=== PATIENT | female | born 1975 | race Caucasian/White ===

== ENCOUNTER → 2017-06-11 | Outpatient (CLI) | payer BC ==
--- NOTE | 2017-06-11 13:49 | MM ---
Reason for exam: screening (asymptomatic). Baseline mammogram. History: Patient had first child at age 34. Physical Findings: Nurse did not find any significant physical abnormalities on exam. MG Screening Mammo w CAD Bilateral CC and MLO view(s) were taken. The breast tissue is heterogeneously dense. This may lower the sensitivity of mammography. No suspicious abnormality. These results were verbally communicated with the patient and result sheet given to the patient on 06/11/17. ASSESSMENT: Negative, BI-RAD 1 RECOMMENDATION: Routine screening mammogram of both breasts in 1 year.
== END | disposition home or self-care (01) ==
LOC: RADMAMWWP 12:52
PROVIDERS: ATTEND Family Medicine
DX: Z12.31 Encounter for screening mammogram for malignant neoplasm of breast (principal)

== ENCOUNTER 2019-10-24 04:43 | Emergency (ER) | payer BC ==
[2019-10-24 04:52] VITALS: RESP 18; TEMP 98.2
--- NOTE | 2019-10-24 08:10 | ED ---
General Adult HPI - General Source: patient, EMS Mode of arrival: EMS Limitations: altered mental status <Cheyenne Walsh - Last Filed: 10/24/19 08:11> <Charli Rowe - Last Filed: 10/24/19 11:53> - General Chief complaint: Psychiatric Symptoms Stated complaint: Mental health Time Seen by Provider: 10/24/19 04:45 - History of Present Illness Initial comments: Patience is a 44 -year-old female is brought to the ER today intoxicated. Patient reports that she became agitated yesterday because she couldn't get a hold of her and she got upset and so she drank a fifth of liquor. This morning she was very intoxicated. EMS was contacted and she was brought to the ER. Patient made some passive statement about wanting to but denies any specific plan. (Cheyenne Walsh) - Related Data Home Medications Medication Instructions Recorded Confirmed Desvenlafaxine Succinate [Pristiq 50 mg PO DAILY 11/24/15 05/12/16 ER] Lisinopril 10 mg PO DAILY 11/24/15 05/12/16 Allergies Allergy/AdvReac Type Severity Reaction Status Date / Time No Known Allergies Allergy Verified 05/12/16 14:57 Review of Systems ROS Other: All systems not noted in ROS Statement are negative. <Cheyenne Walsh - Last Filed: 10/24/19 08:11> ROS Other: All systems not noted in ROS Statement are negative. <Charli Rowe - Last Filed: 10/24/19 11:53> ROS Statement: Those systems with pertinent positive or pertinent negative responses have been documented in the HPI. Past Medical History Past Medical History: Hypertension Additional Past Medical History / Comment(s): Depression History of Any Multi-Drug Resistant Organisms: None Reported Past Surgical History: No Surgical Hx Reported Past Psychological History: Anxiety, Depression Smoking Status: Current every day smoker Past Alcohol Use History: Occasional Past Drug Use History: None Reported <Cheyenne Walsh - Last Filed: 10/24/19 08:11> General Exam Limitations: altered mental status <Cheyenne Walsh - Last Filed: 10/24/19 08:11> - General Exam Comments Initial Comments: Physical Exam GENERAL: Patient is well-developed and well-nourished. Patient is nontoxic and well-hydrated and is in no distress. HENT: Normocephalic, Atraumatic. EYES: PERRL, EOMI PULMONARY: Unlabored respirations. CARDIOVASCULAR: RRR Warm and well perfused extremities ABDOMEN: Non-distended SKIN: No rashes or bruising : Deferred NEUROLOGIC: Alert and oriented Normal speech Normal gait MUSCULOSKELETAL: Moving all extremities with no apparent injury PSYCHIATRIC: No SI/HI (Cheyenne Walsh) Course Vital Signs 10/24/19 10/24/19 04:49 11:22 Temperature 98.2 F 98.2 F Pulse Rate 84 80 Respiratory 18 18 Rate Blood Pressure 126/84 121/82 O2 Sat by Pulse 98 98 Oximetry Medical Decision Making <Cheyenne Walsh - Last Filed: 10/24/19 08:11> <Charli Rowe - Last Filed: 10/24/19 11:53> - Medical Decision Making Patient was seen and evaluated, patient had become upset that she cannot locate her last night and thus she drank a fifth of alcohol became intoxicated and then upon arrival to the emergency department patient was happy to find her had actually been here held overnight for alcohol intoxication. At this time patient does not feel depressed deny any suicidal ideation however she is quite intoxicated and will remain here until clinically sober. She care will be signed out to Dr. Rowe at shift change (Cheyenne Walsh) Patient evaluated after sign out, she is awake and alert, clinically sober, no suicidal ideation. She is eager to get home and will be discharged, she does have a ride and is not driving. (Charli Rowe) Disposition <Cheyenne Walsh - Last Filed: 10/24/19 08:11> Is patient prescribed a controlled substance at d/c from ED?: No Time of Disposition: 11:15 <Charli Rowe - Last Filed: 10/24/19 11:53> Clinical Impression: Alcohol intoxication Disposition: HOME SELF-CARE Condition: Good Instructions (If sedation given, give patient instructions): Alcohol Intoxication (ED) Referrals: Gavin Mcdonald MD [Primary Care Provider] - 1-2 days
[2019-10-24 11:23] VITALS: BP 121/82; PULSE 80
== END 2019-10-24 11:23 | disposition home or self-care (01) ==
LOC: EC 04:43
DX: F10.129 Alcohol abuse with intoxication, unspecified (principal); R41.82 Altered mental status, unspecified; I10 Essential (primary) hypertension; F32.9 Major depressive disorder, single episode, unspecified; F41.9 Anxiety disorder, unspecified; F17.200 Nicotine dependence, unspecified, uncomplicated; Z79.899 Other long term (current) drug therapy
CPT/HCPCS: 82075; 99285

== ENCOUNTER 2019-11-03 19:59 | Emergency (ER) | payer BC ==
[2019-11-03] MEDS ORDERED: SODIUM CHLORIDE 0.9% 1,000 ML IV STA ×2 (20:14→21:00)
--- NOTE | 2019-11-03 20:15 | ED ---
SOB HPI - General Stated Complaint: SOB Time Seen by Provider: 11/03/19 20:06 Source: RN notes reviewed, old records reviewed Limitations: no limitations - History of Present Illness Initial Comments: This is a 44-year-old female with no code exposure to [place] patient presents today with concern for Kovic cough and she believes she has fever. Patient has no significant shortness of breath no shortness with no chest pain she is a smoker no history of asthma diabetes or any heart disease. Patient again aside from her cold exposure is no travel history. Patient has no significant other symptoms no nausea vomiting or diarrhea. Patient concern obviously that she has Kovic with a known exposure patient has both a family member in the hospital and one in the ICU with: Complaint: cough (And fever) -: days(s) Severity: mild Severity scale (1-10): 3 Quality: aching Consistency: intermittent Improves With: nothing Worsens With: nothing Known History Of: other (No significant medical history) Context: recent URI (An exposure to positive: Patient) Associated Symptoms: fever, cough Treatments Prior to Arrival: none - Related Data Home Medications Medication Instructions Recorded Confirmed Desvenlafaxine Succinate [Pristiq 50 mg PO DAILY 11/24/15 05/12/16 ER] Lisinopril 10 mg PO DAILY 11/24/15 05/12/16 Allergies Allergy/AdvReac Type Severity Reaction Status Date / Time No Known Allergies Allergy Verified 05/12/16 14:57 Review of Systems ROS Statement: Those systems with pertinent positive or pertinent negative responses have been documented in the HPI. ROS Other: All systems not noted in ROS Statement are negative. Past Medical History Past Medical History: Hypertension Additional Past Medical History / Comment(s): Depression History of Any Multi-Drug Resistant Organisms: None Reported Past Surgical History: No Surgical Hx Reported Past Psychological History: Anxiety, Depression Smoking Status: Current every day smoker Past Alcohol Use History: Occasional Past Drug Use History: None Reported General Exam General appearance: alert, in no apparent distress Head exam: Present: atraumatic, normocephalic, normal inspection Eye exam: Present: normal appearance, PERRL, EOMI. Absent: scleral icterus, conjunctival injection, periorbital swelling ENT exam: Present: normal exam, mucous membranes moist Neck exam: Present: normal inspection. Absent: tenderness, meningismus, lymphadenopathy Respiratory exam: Present: normal lung sounds bilaterally. Absent: respiratory distress, wheezes, rales, rhonchi, stridor Cardiovascular Exam: Present: regular rate, normal rhythm, normal heart sounds. Absent: systolic murmur, diastolic murmur, rubs, gallop, clicks GI/Abdominal exam: Present: soft, normal bowel sounds. Absent: distended, tenderness, guarding, rebound, rigid Extremities exam: Present: normal inspection, full ROM, normal capillary refill. Absent: tenderness, pedal edema, joint swelling, calf tenderness Back exam: Present: normal inspection Neurological exam: Present: alert, oriented X3, CN II-XII intact Psychiatric exam: Present: normal affect, normal mood Skin exam: Present: warm, dry, intact, normal color. Absent: rash Course Vital Signs 11/03/19 11/03/19 11/03/19 20:04 20:08 21:00 Temperature 98.8 F 99.4 F Pulse Rate 92 82 80 Respiratory 18 16 16 Rate Blood Pressure 166/100 145/91 133/81 O2 Sat by Pulse 96 96 97 Oximetry 11/03/19 22:16 Temperature 99.0 F Pulse Rate 89 Respiratory 16 Rate Blood Pressure 141/90 O2 Sat by Pulse 99 Oximetry - Reevaluation(s) Reevaluation #1: Medical records reviewed Patient informed of findings here in the ER given adequate hydration denying shortness of breath patient is feeling improved Patient again admits to positive CO VID exposure Patient given return parameters, with no significant shortness breath normal x- ray and normal lab values currently patient can be discharged home Medical Decision Making - Medical Decision Making 44 female DF for evaluation for concern of covert, she does have positive exposure with fever and cough chest x-ray lab work and vital signs are normal here in the ER patient's in no distress informed of results we'll choose discharged home, quarantine and follow-up as needed - Lab Data Result diagrams: 11/03/19 20:10 11/03/19 20:10 Lab Results 11/03/19 11/03/19 11/03/19 Range/Units 20:10 20:10 20:10 WBC 9.6 (3.8-10.6) k/uL RBC 4.93 (3.80-5.40) m/uL Hgb 16.1 H (11.4-16.0) gm/dL Hct 48.6 H (34.0-46.0) % MCV 98.5 (80.0-100.0) fL MCH 32.5 (25.0-35.0) pg MCHC 33.0 (31.0-37.0) g/dL RDW 13.7 (11.5-15.5) % Plt Count 305 (150-450) k/uL Neutrophils % 57 % Lymphocytes % 32 % Monocytes % 5 % Eosinophils % 2 % Basophils % 1 % Neutrophils # 5.5 (1.3-7.7) k/uL Lymphocytes # 3.0 (1.0-4.8) k/uL Monocytes # 0.5 (0-1.0) k/uL Eosinophils # 0.2 (0-0.7) k/uL Basophils # 0.1 (0-0.2) k/uL PT 9.4 (9.0-12.0) sec INR 0.9 (<1.2) APTT 22.4 (22.0-30.0) sec Sodium 142 (137-145) mmol/L Potassium 3.7 (3.5-5.1) mmol/L Chloride 109 H (98-107) mmol/L Carbon Dioxide 23 (22-30) mmol/L Anion Gap 10 mmol/L BUN 11 (7-17) mg/dL Creatinine 0.56 (0.52-1.04) mg/dL Est GFR (CKD-EPI)AfAm >90 (>60 ml/min/1.73 sqM) Est GFR (CKD-EPI)NonAf >90 (>60 ml/min/1.73 sqM) Glucose 110 H (74-99) mg/dL Lactic Ac Sepsis Rflx Plasma Lactic Acid Quan (0.7-2.0) mmol/L Calcium 8.9 (8.4-10.2) mg/dL Magnesium 2.0 (1.6-2.3) mg/dL Total Bilirubin 0.2 (0.2-1.3) mg/dL AST 29 (14-36) U/L ALT 18 (4-34) U/L Alkaline Phosphatase 92 (38-126) U/L Creatine Kinase 116 (30-135) U/L CK-MB (CK-2) (0.0-2.4) ng/mL Troponin I (0.000-0.034) ng/mL NT-Pro-B Natriuret Pep pg/mL Total Protein 7.2 (6.3-8.2) g/dL Albumin 4.4 (3.5-5.0) g/dL Urine Color Urine Appearance (Clear) Urine pH (5.0-8.0) Ur Specific [place] (1.001-1.035) Urine Protein (Negative) Urine Glucose (UA) (Negative) Urine Ketones (Negative) Urine Blood (Negative) Urine Nitrite (Negative) Urine Bilirubin (Negative) Urine Urobilinogen (<2.0) mg/dL Ur Leukocyte Esterase (Negative) Urine RBC (0-5) /hpf Urine WBC (0-5) /hpf Ur Squamous Epith Cells (0-4) /hpf Hyaline Casts (0-2) /lpf Urine Mucus (None) /hpf 11/03/19 11/03/19 11/03/19 Range/Units 20:10 20:10 20:10 WBC (3.8-10.6) k/uL RBC (3.80-5.40) m/uL Hgb (11.4-16.0) gm/dL Hct (34.0-46.0) % MCV (80.0-100.0) fL MCH (25.0-35.0) pg MCHC (31.0-37.0) g/dL RDW (11.5-15.5) % Plt Count (150-450) k/uL Neutrophils % % Lymphocytes % % Monocytes % % Eosinophils % % Basophils % % Neutrophils # (1.3-7.7) k/uL Lymphocytes # (1.0-4.8) k/uL Monocytes # (0-1.0) k/uL Eosinophils # (0-0.7) k/uL Basophils # (0-0.2) k/uL PT (9.0-12.0) sec INR (<1.2) APTT (22.0-30.0) sec Sodium (137-145) mmol/L Potassium (3.5-5.1) mmol/L Chloride (98-107) mmol/L Carbon Dioxide (22-30) mmol/L Anion Gap mmol/L BUN (7-17) mg/dL Creatinine (0.52-1.04) mg/dL Est GFR (CKD-EPI)AfAm (>60 ml/min/1.73 sqM) Est GFR (CKD-EPI)NonAf (>60 ml/min/1.73 sqM) Glucose (74-99) mg/dL Lactic Ac Sepsis Rflx Plasma Lactic Acid Quan 3.4 H* (0.7-2.0) mmol/L Calcium (8.4-10.2) mg/dL Magnesium (1.6-2.3) mg/dL Total Bilirubin (0.2-1.3) mg/dL AST (14-36) U/L ALT (4-34) U/L Alkaline Phosphatase (38-126) U/L Creatine Kinase (30-135) U/L CK-MB (CK-2) 0.5 (0.0-2.4) ng/mL Troponin I <0.012 (0.000-0.034) ng/mL NT-Pro-B Natriuret Pep 49 pg/mL Total Protein (6.3-8.2) g/dL Albumin (3.5-5.0) g/dL Urine Color Urine Appearance (Clear) Urine pH (5.0-8.0) Ur Specific [place] (1.001-1.035) Urine Protein (Negative) Urine Glucose (UA) (Negative) Urine Ketones (Negative) Urine Blood (Negative) Urine Nitrite (Negative) Urine Bilirubin (Negative) Urine Urobilinogen (<2.0) mg/dL Ur Leukocyte Esterase (Negative) Urine RBC (0-5) /hpf Urine WBC (0-5) /hpf Ur Squamous Epith Cells (0-4) /hpf Hyaline Casts (0-2) /lpf Urine Mucus (None) /hpf 11/03/19 11/03/19 Range/Units 20:47 20:54 WBC (3.8-10.6) k/uL RBC (3.80-5.40) m/uL Hgb (11.4-16.0) gm/dL Hct (34.0-46.0) % MCV (80.0-100.0) fL MCH (25.0-35.0) pg MCHC (31.0-37.0) g/dL RDW (11.5-15.5) % Plt Count (150-450) k/uL Neutrophils % % Lymphocytes % % Monocytes % % Eosinophils % % Basophils % % Neutrophils # (1.3-7.7) k/uL Lymphocytes # (1.0-4.8) k/uL Monocytes # (0-1.0) k/uL Eosinophils # (0-0.7) k/uL Basophils # (0-0.2) k/uL PT (9.0-12.0) sec INR (<1.2) APTT (22.0-30.0) sec Sodium (137-145) mmol/L Potassium (3.5-5.1) mmol/L Chloride (98-107) mmol/L Carbon Dioxide (22-30) mmol/L Anion Gap mmol/L BUN (7-17) mg/dL Creatinine (0.52-1.04) mg/dL Est GFR (CKD-EPI)AfAm (>60 ml/min/1.73 sqM) Est GFR (CKD-EPI)NonAf (>60 ml/min/1.73 sqM) Glucose (74-99) mg/dL Lactic Ac Sepsis Rflx Y Plasma Lactic Acid Quan (0.7-2.0) mmol/L Calcium (8.4-10.2) mg/dL Magnesium (1.6-2.3) mg/dL Total Bilirubin (0.2-1.3) mg/dL AST (14-36) U/L ALT (4-34) U/L Alkaline Phosphatase (38-126) U/L Creatine Kinase (30-135) U/L CK-MB (CK-2) (0.0-2.4) ng/mL Troponin I (0.000-0.034) ng/mL NT-Pro-B Natriuret Pep pg/mL Total Protein (6.3-8.2) g/dL Albumin (3.5-5.0) g/dL Urine Color Yellow Urine Appearance Clear (Clear) Urine pH 6.5 (5.0-8.0) Ur Specific [place] 1.026 (1.001-1.035) Urine Protein Trace H (Negative) Urine Glucose (UA) Negative (Negative) Urine Ketones Trace H (Negative) Urine Blood Moderate H (Negative) Urine Nitrite Negative (Negative) Urine Bilirubin Negative (Negative) Urine Urobilinogen <2.0 (<2.0) mg/dL Ur Leukocyte Esterase Negative (Negative) Urine RBC 11 H (0-5) /hpf Urine WBC 2 (0-5) /hpf Ur Squamous Epith Cells 2 (0-4) /hpf Hyaline Casts 1 (0-2) /lpf Urine Mucus Many H (None) /hpf - EKG Data -: EKG Interpreted by Me (EKG shows sinus rhythm of 86, NC 46, QRS 78, QTC 447) - Radiology Data Radiology results: report reviewed (Chest x-rays negative for acute disease), image reviewed Disposition Clinical Impression: Upper respiratory infection, Bronchitis, Viral syndrome Narrative: possCOVID Disposition: HOME SELF-CARE Condition: Good Instructions (If sedation given, give patient instructions): Acute Bronchitis (ED), Viral Syndrome (ED) Is patient prescribed a controlled substance at d/c from ED?: No Referrals: Jeremy Mcdonlad MD [Primary Care Provider] - 1-2 days
[2019-11-03 20:24] LABS: Basophils # (A) 0.1 k/uL (0-0.2); Basophils % (A) 1 %; Eosinophils # (A) 0.2 k/uL (0-0.7); Eosinophils % (A) 2 %; HCT 48.6 % (34.0-46.0); HGB 16.1 gm/dL (11.4-16.0); Lymphocytes % (A) 32 %; MCH 32.5 pg (25.0-35.0); MCV 98.5 fL (80.0-100.0); Monocytes # (A) 0.5 k/uL (0-1.0); Monocytes % (A) 5 %; Neutrophils # (A) 5.5 k/uL (1.3-7.7); Neutrophils % (A) 57 %; Platelet Count 305 k/uL (150-450); RBC 4.93 m/uL (3.80-5.40); RDW 13.7 % (11.5-15.5); WBC 9.6 k/uL (3.8-10.6)
[2019-11-03 20:25] VITALS: RESP 16
[2019-11-03 20:36] LABS: ALT 18 U/L (4-34); AST 29 U/L (14-36); African American GFR (CKD) >90 (>60 ml/min/1.73 sqM); Albumin 4.4 g/dL (3.5-5.0); Alkaline Phosphatase 92 U/L (38-126); Anion Gap 10 mmol/L; Blood Urea Nitrogen 11 mg/dL (7-17); Calcium 8.9 mg/dL (8.4-10.2); Carbon Dioxide 23 mmol/L (22-30); Chloride 109 mmol/L (98-107); Creatine Kinase 116 U/L (30-135); Glucose 110 mg/dL (74-99); Non-African American GFR(CKD) >90 (>60 ml/min/1.73 sqM); Potassium 3.7 mmol/L (3.5-5.1); Sodium 142 mmol/L (137-145); Total Bilirubin 0.2 mg/dL (0.2-1.3); Total Protein 7.2 g/dL (6.3-8.2)
[2019-11-03 20:41] LABS: INR 0.9 (<1.2); Partial Thromboplastin Time 22.4 sec (22.0-30.0); Prothrombin Time 9.4 sec (9.0-12.0)
[2019-11-03 20:55] LABS: Creatine Kinase MB 0.5 ng/mL (0.0-2.4); Troponin I <0.012 ng/mL (0.000-0.034)
--- NOTE | 2019-11-03 20:55 | XR ---
EXAMINATION TYPE: XR chest 1V portable DATE OF EXAM: 11/03/2019 COMPARISON: 05/12/2016 HISTORY: Cough. TECHNIQUE: FINDINGS: Heart and mediastinum are normal. Lungs are clear of infiltrate. There is no pleural effusi on. Pulmonary vascularity is normal. Bony thorax is intact. IMPRESSION: No cardiopulmonary disease. No change. Normal heart.
[2019-11-03] MEDS ORDERED: ACETAMINOPHEN TAB 500 MG TAB PO STA (21:00)
[2019-11-03 21:10] LABS: Appearance,Urine Clear (Clear); Bilirubin,Urine Negative (Negative); Blood,Urine Moderate (Negative); Color,Urine Yellow; Glucose,Urine (UA) Negative (Negative); Hyaline Casts,Urine 1 /lpf (0-2); Ketones,Urine Trace (Negative); Leukocyte Esterase,Urine Negative (Negative); Mucus,Urine Many /hpf; Nitrite,Urine Negative (Negative); PH, Urine 6.5 (5.0-8.0); Protein,Urine Trace (Negative); RBC,Urine 11 /hpf (0-5); Specific Gravity,Urine 1.026 (1.001-1.035); Squamous Epithelial Cell,Urine 2 /hpf (0-4); Urobilinogen,Urine <2.0 mg/dL (<2.0); WBC,Urine 2 /hpf (0-5)
[2019-11-03 22:18] VITALS: BP 141/90; PULSE 89; TEMP 99
== END 2019-11-03 22:15 | disposition home or self-care (01) ==
LOC: EC 19:59
DX: J06.9 Acute upper respiratory infection, unspecified (principal); J40 Bronchitis, not specified as acute or chronic; B34.9 Viral infection, unspecified; I10 Essential (primary) hypertension; F32.9 Major depressive disorder, single episode, unspecified; F17.200 Nicotine dependence, unspecified, uncomplicated; Z79.899 Other long term (current) drug therapy
CPT/HCPCS: 36415; 71045; 80053; 81001; 82550; 82553; 83605; 83735; 83880; 84484; 85025; 85610; 85730; 87040; 93005; 96360; 99285

== ENCOUNTER 2019-12-27 16:09 | Emergency (ER) | payer BC ==
[2019-12-27] MEDS ORDERED: ALBUTEROL HFA INHALER INHALATION STA (16:52)
[2019-12-27 17:29] LABS: Basophils # (A) 0.1 k/uL (0-0.2); Basophils % (A) 1 %; Eosinophils # (A) 0.4 k/uL (0-0.7); Eosinophils % (A) 3 %; HCT 47.6 % (34.0-46.0); HGB 15.3 gm/dL (11.4-16.0); Lymphocytes # (A) 3.9 k/uL (1.0-4.8); Lymphocytes % (A) 35 %; MCH 31.2 pg (25.0-35.0); MCHC 32.1 g/dL (31.0-37.0); MCV 97.2 fL (80.0-100.0); Monocytes # (A) 0.6 k/uL (0-1.0); Monocytes % (A) 5 %; Neutrophils % (A) 54 %; Platelet Count 369 k/uL (150-450); RBC 4.89 m/uL (3.80-5.40); RDW 12.7 % (11.5-15.5); WBC 11.1 k/uL (3.8-10.6)
--- NOTE | 2019-12-27 17:33 | XR ---
EXAMINATION TYPE: XR chest 1V portable DATE OF EXAM: 12/27/2019 COMPARISON: 11/03/2019 HISTORY: Cough and congestion TECHNIQUE: FINDINGS: Heart and mediastinum are normal. Lungs are clear of infiltrate. There are no hilar masses. Bony thorax is intact. Pulmonary vascularity is normal. IMPRESSION: Normal chest. No change.
[2019-12-27 17:43] LABS: ALT 14 U/L (4-34); AST 22 U/L (14-36); African American GFR (CKD) 85 (>60 ml/min/1.73 sqM); Albumin 4.1 g/dL (3.5-5.0); Alkaline Phosphatase 70 U/L (38-126); Anion Gap 11 mmol/L; Blood Urea Nitrogen 15 mg/dL (7-17); Carbon Dioxide 18 mmol/L (22-30); Chloride 115 mmol/L (98-107); Glucose 101 mg/dL (74-99); LDH 497 U/L (313-618); Non-African American GFR(CKD) 74 (>60 ml/min/1.73 sqM); Potassium 4.5 mmol/L (3.5-5.1); Sodium 144 mmol/L (137-145); Total Bilirubin 0.2 mg/dL (0.2-1.3); Total Protein 6.7 g/dL (6.3-8.2)
[2019-12-27 17:45] LABS: INR 0.9 (<1.2); Partial Thromboplastin Time 22.7 sec (22.0-30.0); Prothrombin Time 9.5 sec (9.0-12.0)
[2019-12-27 17:54] LABS: C Reactive Protein <5.0 mg/L (<10.0)
[2019-12-27 17:56] LABS: D-Dimer 0.7 mg/L FEU (<0.60)
[2019-12-27] MEDS ORDERED: MORPHINE SULFATE 4 MG/ML SYRINGE IVP STA (18:29)
--- NOTE | 2019-12-27 18:41 | CT ---
EXAMINATION TYPE: CT chest angio for PE DATE OF EXAM: 12/27/2019 COMPARISON: None HISTORY: SOB, ELEVATED D-DIMER CT DLP: 479 mGycm Automated exposure control for dose reduction was used. CONTRAST: Performed with IV Contrast, patient injected with 80 mL of Isovue 370. There are 3-D post processed images. The lungs are clear of infiltrate. There is no evidence of a pulmonary mass. There is no pleural effu nas. There is no pericardial effusion. There is no mediastinal adenopathy. There are no hilar masses. Heart size is normal. There is normal contrast opacification of the pulmonary arteries. There are no filling defects. Thora cic spine is intact. There is no compression fracture. Bony thorax is intact. Upper abdominal soft tissues appear normal. IMPRESSION: Normal exam. No evidence of pulmonary embolism.
[2019-12-27 18:55] VITALS: TEMP 97.6
[2019-12-27 19:11] VITALS: RESP 16
--- NOTE | 2019-12-27 19:55 | ED ---
General Adult HPI - General Chief complaint: Shortness of Breath Stated complaint: MINESH Time Seen by Provider: 12/27/19 16:32 Source: EMS, RN notes reviewed, old records reviewed Mode of arrival: EMS Limitations: no limitations - History of Present Illness Initial comments: Patient is a 44-year-old female presented to return today with onset of nonproductive cough since yesterday new shortness of breath this morning. Patient has some discomfort in the chest radiating with deep breath on left side. She is no fevers. She had negative covid 2 weeks ago. That time she's treated for bronchitis with azithromycin and hydroxychloroquine and she was exp osed to a covid Patient. Patient reports that she was feeling better up until the past 2 days. She denies any previous cardiac history. - Related Data Home Medications Medication Instructions Recorded Confirmed Desvenlafaxine Succinate [Pristiq 50 mg PO DAILY 11/24/15 05/12/16 ER] Lisinopril 10 mg PO DAILY 11/24/15 05/12/16 Previous Rx's Medication Instructions Recorded Albuterol Inhaler [Ventolin Hfa 1 puff INHALATION RT-QID #1 inhaler 12/27/19 Inhaler] Allergies Allergy/AdvReac Type Severity Reaction Status Date / Time No Known Allergies Allergy Verified 05/12/16 14:57 Review of Systems ROS Statement: Those systems with pertinent positive or pertinent negative responses have been documented in the HPI. ROS Other: All systems not noted in ROS Statement are negative. Past Medical History Past Medical History: Hypertension Additional Past Medical History / Comment(s): Depression History of Any Multi-Drug Resistant Organisms: None Reported Past Surgical History: No Surgical Hx Reported Past Psychological History: Anxiety, Depression Smoking Status: Current every day smoker Past Alcohol Use History: Occasional Past Drug Use History: Marijuana General Exam - General Exam Comments Initial Comments: Alert and oriented 45-year-old female. No significant distress. Limitations: no limitations General appearance: alert, in no apparent distress Head exam: Present: atraumatic, normocephalic, normal inspection Eye exam: Present: normal appearance, PERRL, EOMI. Absent: scleral icterus, conjunctival injection, periorbital swelling ENT exam: Present: normal exam, mucous membranes moist Neck exam: Present: normal inspection. Absent: tenderness, meningismus, lympha denopathy Respiratory exam: Present: normal lung sounds bilaterally. Absent: respiratory distress, wheezes, rales, rhonchi, stridor Cardiovascular Exam: Present: regular rate, normal rhythm, normal heart sounds. Absent: systolic murmur, diastolic murmur, rubs, gallop, clicks GI/Abdominal exam: Present: soft, normal bowel sounds. Absent: distended, tenderness, guarding, rebound, rigid Extremities exam: Present: normal inspection, full ROM, normal capillary refill. Absent: tenderness, pedal edema, joint swelling, calf tenderness Back exam: Present: normal inspection Neurological exam: Present: alert, oriented X3, CN II-XII intact Psychiatric exam: Present: normal affect, normal mood Course Vital Signs 12/27/19 12/27/19 12/27/19 16:11 16:15 17:40 Temperature 98.4 F Pulse Rate 112 H 88 Respiratory 18 20 18 Rate Blood Pressure 122/74 122/81 O2 Sat by Pulse 96 98 Oximetry 12/27/19 12/27/19 12/27/19 18:13 18:54 19:10 Temperature 97.6 F Pulse Rate 95 81 83 Respiratory 18 18 16 Rate Blood Pressure 125/76 130/85 129/83 O2 Sat by Pulse 98 98 98 Oximetry 12/27/19 20:33 Temperature Pulse Rate 71 Respiratory 16 Rate Blood Pressure 133/95 O2 Sat by Pulse 100 Oximetry Medical Decision Making - Medical Decision Making 44-year-old female presents emergency department today with chief complaint of cough, shortness of breath for the past 2 days. Patient states that she has some chest pain with taking a deep breath and reflected cough. Patient's lungs are relatively clear. No significant cough emergency department. EKG was reviewed and troponin reviewed are negative. Patient was given IV fluids and albuterol inhaler. She is reevaluated and resting comfortably in bed. I discussed patient's seems to likely still be related to slight bronchitis or bronchospasm. Advise using inhaler and following up with PCP. Discussed return parameters. - Lab Data Result diagrams: 12/27/19 16:16 12/27/19 16:16 Lab Results 12/27/19 12/27/19 12/27/19 Range/Units 16:16 16:16 16:16 WBC 11.1 H (3.8-10.6) k/uL RBC 4.89 (3.80-5.40) m/uL Hgb 15.3 (11.4-16.0) gm/dL Hct 47.6 H (34.0-46.0) % MCV 97.2 (80.0-100.0) fL MCH 31.2 (25.0-35.0) pg MCHC 32.1 (31.0-37.0) g/dL RDW 12.7 (11.5-15.5) % Plt Count 369 (150-450) k/uL Neutrophils % 54 % Lymphocytes % 35 % Monocytes % 5 % Eosinophils % 3 % Basophils % 1 % Neutrophils # 6.0 (1.3-7.7) k/uL Lymphocytes # 3.9 (1.0-4.8) k/uL Monocytes # 0.6 (0-1.0) k/uL Eosinophils # 0.4 (0-0.7) k/uL Basophils # 0.1 (0-0.2) k/uL PT 9.5 (9.0-12.0) sec INR 0.9 (<1.2) APTT 22.7 (22.0-30.0) sec D-Dimer 0.70 H (<0.60) mg/L FEU Sodium 144 (137-145) mmol/L Potassium 4.5 (3.5-5.1) mmol/L Chloride 115 H (98-107) mmol/L Carbon Dioxide 18 L (22-30) mmol/L Anion Gap 11 mmol/L BUN 15 (7-17) mg/dL Creatinine 0.95 (0.52-1.04) mg/dL Est GFR (CKD-EPI)AfAm 85 (>60 ml/min/1.73 sqM) Est GFR (CKD-EPI)NonAf 74 (>60 ml/min/1.73 sqM) Glucose 101 H (74-99) mg/dL Lactic Ac Sepsis Rflx Plasma Lactic Acid Quan (0.7-2.0) mmol/L Calcium 9.0 (8.4-10.2) mg/dL Magnesium 2.0 (1.6-2.3) mg/dL Total Bilirubin 0.2 (0.2-1.3) mg/dL AST 22 (14-36) U/L ALT 14 (4-34) U/L Alkaline Phosphatase 70 (38-126) U/L Lactate Dehydrogenase 497 (313-618) U/L Troponin I (0.000-0.034) ng/mL C-Reactive Protein <5.0 (<10.0) mg/L Total Protein 6.7 (6.3-8.2) g/dL Albumin 4.1 (3.5-5.0) g/dL 12/27/19 12/27/19 12/27/19 Range/Units 16:16 16:16 18:00 WBC (3.8-10.6) k/uL RBC (3.80-5.40) m/uL Hgb (11.4-16.0) gm/dL Hct (34.0-46.0) % MCV (80.0-100.0) fL MCH (25.0-35.0) pg MCHC (31.0-37.0) g/dL RDW (11.5-15.5) % Plt Count (150-450) k/uL Neutrophils % % Lymphocytes % % Monocytes % % Eosinophils % % Basophils % % Neutrophils # (1.3-7.7) k/uL Lymphocytes # (1.0-4.8) k/uL Monocytes # (0-1.0) k/uL Eosinophils # (0-0.7) k/uL Basophils # (0-0.2) k/uL PT (9.0-12.0) sec INR (<1.2) APTT (22.0-30.0) sec D-Dimer (<0.60) mg/L FEU Sodium (137-145) mmol/L Potassium (3.5-5.1) mmol/L Chloride (98-107) mmol/L Carbon Dioxide (22-30) mmol/L Anion Gap mmol/L BUN (7-17) mg/dL Creatinine (0.52-1.04) mg/dL Est GFR (CKD-EPI)AfAm (>60 ml/min/1.73 sqM) Est GFR (CKD-EPI)NonAf (>60 ml/min/1.73 sqM) Glucose (74-99) mg/dL Lactic Ac Sepsis Rflx Y Plasma Lactic Acid Quan 2.7 H* (0.7-2.0) mmol/L Calcium (8.4-10.2) mg/dL Magnesium (1.6-2.3) mg/dL Total Bilirubin (0.2-1.3) mg/dL AST (14-36) U/L ALT (4-34) U/L Alkaline Phosphatase (38-126) U/L Lactate Dehydrogenase (313-618) U/L Troponin I <0.012 (0.000-0.034) ng/mL C-Reactive Protein (<10.0) mg/L Total Protein (6.3-8.2) g/dL Albumin (3.5-5.0) g/dL 12/27/19 20:25 EKG shows normal sinus rhythm normal ECG. Ventricular rate of 89 bpm. Verbal 134 mg. QRS ration 76 most seconds. QT QTc is 362/440 ms - Radiology Data Radiology results: report reviewed CTA is negative. No pulmonary embolism. Normal chest x-ray. No changes. Disposition Clinical Impression: Bronchospasm, Cough Disposition: HOME SELF-CARE Condition: Good Instructions (If sedation given, give patient instructions): Acute Bronchitis (ED) Additional Instructions: Please use medication as discussed. Please follow up with family doctor if symptoms have not improved over the next two days. Please return to the emergency room if your symptoms increase or worsen or for any other concerns. Prescriptions: Albuterol Inhaler [Ventolin Hfa Inhaler] 1 puff INHALATION RT-QID #1 inhaler Is patient prescribed a controlled substance at d/c from ED?: No Referrals: Gavin Mcdonald MD [Primary Care Provider] - 1-2 days Time of Disposition: 20:20
[2019-12-27 20:34] VITALS: BP 133/95; PULSE 71
[2019-12-28 12:36] LABS: Ferritin 141.3 ng/mL (10.0-291.0)
== END 2019-12-27 20:34 | disposition home or self-care (01) ==
LOC: SUPCPDRO 16:09 → EC 16:09
DX: J98.01 Acute bronchospasm (principal); Z20.828 Contact with and (suspected) exposure to other viral communicable diseases; I10 Essential (primary) hypertension; F32.9 Major depressive disorder, single episode, unspecified; F17.200 Nicotine dependence, unspecified, uncomplicated; Z79.899 Other long term (current) drug therapy
CPT/HCPCS: 36415; 94640; 93005; 85379; 80053; 82728; 83605; 83615; 83735; 84484; 85025; 85610; 85730; 86140; 84145; 87635; 71045; 71275; 99285; 96374; J2270; Q9967

== ENCOUNTER 2019-12-28 00:21 | Observation (INO) | payer BC ==
--- NOTE | 2019-12-28 00:59 | ED ---
Chest Pain HPI - General Chief Complaint: Chest Pain Stated Complaint: chest pain Time Seen by Provider: 12/28/19 00:22 Source: patient, EMS, RN notes reviewed, old records reviewed Mode of arrival: EMS Limitations: no limitations - History of Present Illness Initial Comments: This is a 44-year-old female DF for evaluation patient Dese for evaluation re gards to chest pain. Patient is multiple episodes of recurrent chest pain patient's no prior cardiac evaluation patient was here earlier in the day for chest pain states chest pain is being increasingly worsening tonight. Mild nausea no vomiting no recent travel history. Patient did have significant sick contacts with positive cold exposure MD Complaint: chest pain -: days(s) Onset: during rest Pain Location: substernal, left chest Pain Radiation: none Severity: mild, moderate Severity scale (1-10): 5 Quality: aching, heaviness Consistency: intermittent Improves With: nothing Worsens With: nothing Context: recent illness (Concern for Kovic exposure) Anginal Symptoms: dyspnea Other Symptoms: cough Treatments Prior to Arrival: none - Related Data Home Medications Medication Instructions Recorded Confirmed Desvenlafaxine Succinate [Pristiq 50 mg PO DAILY 11/24/15 05/12/16 ER] Lisinopril 10 mg PO DAILY 11/24/15 05/12/16 Previous Rx's Medication Instructions Recorded Albuterol Inhaler [Ventolin Hfa 1 puff INHALATION RT-QID #1 inhaler 12/27/19 Inhaler] Allergies Allergy/AdvReac Type Severity Reaction Status Date / Time No Known Allergies Allergy Verified 05/12/16 14:57 Review of Systems ROS Statement: Those systems with pertinent positive or pertinent negative responses have been documented in the HPI. ROS Other: All systems not noted in ROS Statement are negative. EKG Findings - EKG Comments: EKG Findings:: EKG shows sinus rhythm 88, CT 140, QRS 78, QTC 459 Past Medical History Past Medical History: Hypertension Additional Past Medical History / Comment(s): Depression History of Any Multi-Drug Resistant Organisms: MRSA Past Surgical History: No Surgical Hx Reported Past Psychological History: Anxiety, Depression Smoking Status: Current some day smoker Past Alcohol Use History: Occasional Past Drug Use History: Marijuana General Exam Limitations: no limitations General appearance: alert, in no apparent distress, anxious Head exam: Present: atraumatic, normocephalic, normal inspection Eye exam: Present: normal appearance, PERRL, EOMI. Absent: scleral icterus, conjunctival injection, periorbital swelling ENT exam: Present: normal exam, mucous membranes moist Neck exam: Present: normal inspection. Absent: tenderness, meningismus, lymphadenopathy Respiratory exam: Present: normal lung sounds bilaterally. Absent: respiratory distress, wheezes, rales, rhonchi, stridor Cardiovascular Exam: Present: regular rate, normal rhythm, normal heart sounds. Absent: systolic murmur, diastolic murmur, rubs, gallop, clicks GI/Abdominal exam: Present: soft, normal bowel sounds. Absent: distended, tenderness, guarding, rebound, rigid Extremities exam: Present: normal inspection, full ROM, normal capillary refill. Absent: tenderness, pedal edema, joint swelling, calf tenderness Back exam: Present: normal inspection Neurological exam: Present: alert, oriented X3, CN II-XII intact Psychiatric exam: Present: normal affect, normal mood Skin exam: Present: warm, dry, intact, normal color. Absent: rash Course Vital Signs 12/28/19 12/28/19 00:22 00:30 Temperature 98 F Pulse Rate 86 Pulse Rate [ 95 Transmission Rebuilder ] Respiratory 18 Rate Blood Pressure 122/82 O2 Sat by Pulse 94 L Oximetry - Reevaluation(s) Reevaluation #1: 12/28/19 02:59 Medical records reviewed Reevaluation #2: 12/28/19 02:59 Patient's sodium persistent chest pain here in the ER - Consultations Consultation #1: Spoke with Dr. Crawford is agreeable for admission Chest Pain MDM - MDM 44 female DF for evaluation presented for evaluation regards to chest pain episodes of recurrent chest pain. Patient will be admitted for chest pain observation Disposition Clinical Impression: Chest pain Disposition: ADMITTED IP TO THIS HOSP Condition: Undetermined Is patient prescribed a controlled substance at d/c from ED?: No
[2019-12-28 01:02] LABS: Basophils # (A) 0.1 k/uL (0-0.2); Basophils % (A) 1 %; Eosinophils # (A) 0.4 k/uL (0-0.7); Eosinophils % (A) 4 %; HCT 45.7 % (34.0-46.0); HGB 14.8 gm/dL (11.4-16.0); Lymphocytes # (A) 3.8 k/uL (1.0-4.8); Lymphocytes % (A) 39 %; MCH 31.4 pg (25.0-35.0); MCHC 32.5 g/dL (31.0-37.0); MCV 96.8 fL (80.0-100.0); Mean Platelet Volume 7.9; Monocytes # (A) 0.5 k/uL (0-1.0); Monocytes % (A) 5 %; Neutrophils # (A) 4.9 k/uL (1.3-7.7); Neutrophils % (A) 50 %; Platelet Count 296 k/uL (150-450); RBC 4.72 m/uL (3.80-5.40); RDW 12.8 % (11.5-15.5); WBC 9.8 k/uL (3.8-10.6)
[2019-12-28 01:14] LABS: ALT 15 U/L (4-34); AST 30 U/L (14-36); African American GFR (CKD) >90 (>60 ml/min/1.73 sqM); Albumin 4.2 g/dL (3.5-5.0); Alkaline Phosphatase 47 U/L (38-126); Anion Gap 10 mmol/L; Blood Urea Nitrogen 13 mg/dL (7-17); Calcium 8.9 mg/dL (8.4-10.2); Carbon Dioxide 22 mmol/L (22-30); Chloride 113 mmol/L (98-107); Glucose 99 mg/dL (74-99); Magnesium 2.1 mg/dL (1.6-2.3); Non-African American GFR(CKD) >90 (>60 ml/min/1.73 sqM); Sodium 145 mmol/L (137-145); Total Bilirubin 0.5 mg/dL (0.2-1.3); Total Protein 6.9 g/dL (6.3-8.2)
[2019-12-28 01:16] LABS: Potassium 4.6 mmol/L (3.5-5.1)
[2019-12-28 01:45] LABS: INR 0.9 (<1.2); Partial Thromboplastin Time 22.5 sec (22.0-30.0); Prothrombin Time 9.8 sec (9.0-12.0)
[2019-12-28] MEDS ORDERED: NITROGLYCERIN SL TABS 0.4 MG TAB SUBLINGUAL PRN (01:47)
[2019-12-28] MEDS ORDERED: ASPIRIN 81 MG PO STA (01:47)
[2019-12-28] MEDS: SODIUM CHLORIDE 0.9% 1,000 ML IV SCH ×2 (02:23→23:35)
[2019-12-28] MEDS: MORPHINE SULFATE 4 MG/ML SYRINGE IV PRN ×2 (02:24→08:39)
--- NOTE | 2019-12-28 04:38 | P.HPIM ---
History of Present Illness H&P Date: 12/28/19 Chief Complaint: Chest pain 44-year-old female with hypertension controlled with meds Patient comes in after recurrent attack of retrosternal chest pain she reports that this morning while cooking she experienced 10 out of 10 sharp burning retrosternal chest pain nonradiating associated with pleuritic chest pain component she grew concerned she denies any associated palpitations nausea or vomiting or dizziness. Denies any similar episodes in the past except for 4 weeks ago when she was diagnosed with bronchitis at that time she also experienced some chest pain. So this morning she decided to come to the hospital after she experienced this pain she did not try any medications at home in the ED d-dimer was very slightly elevated CT angios the chest showed no acute pathology in the chest. Patient was discharged home and was told to come back if she experiences pain again. After spending one hour home she experienced similar pain while resting doing nothing she felt like she could not breathe and decided to come back to the hospital. Patient does admit to some anxiety and depression denies any sick contact or recent traveling denies otherwise any nausea vomiting diarrhea abdominal pain. Patient admits to smoking however she's then transferred to [facility] back since her diagnosis with bronchitis Patient admits to positive family history of coronary artery disease at young age. Patient initial workup in the ED this time was unremarkable patient admitted for cardiology evaluation Review of Systems Pertinent positives as noted in HPI. All other systems were reviewed and are negative Past Medical History Past Medical History: Hypertension Additional Past Medical History / Comment(s): Depression History of Any Multi-Drug Resistant Organisms: MRSA Past Surgical History: No Surgical Hx Reported Past Psychological History: Anxiety, Depression Smoking Status: Current some day smoker Past Alcohol Use History: Occasional Past Drug Use History: Marijuana - Past Family History Family Additional Family Medical History / Comment(s): Premature CAD in her uncle maternal side Medications and Allergies Home Medications Medication Instructions Recorded Confirmed Type Desvenlafaxine Succinate [Pristiq 50 mg PO DAILY 11/24/15 05/12/16 History ER] Lisinopril 10 mg PO DAILY 11/24/15 05/12/16 History Albuterol Inhaler [Ventolin Hfa 1 puff INHALATION RT-QID #1 inhaler 12/27/19 Rx Inhaler] Allergies Allergy/AdvReac Type Severity Reaction Status Date / Time No Known Allergies Allergy Verified 05/12/16 14:57 Physical Exam Vitals: Vital Signs Temp Pulse Pulse Resp BP Pulse Ox 12/28/19 00:30 95 12/28/19 00:22 98 F 86 18 122/82 94 L Intake and Output 12/27/19 12/27/19 12/28/19 14:59 22:59 06:59 Other: Weight 74.843 kg Constitutional: No acute distress, conversant, pleasant Eyes: Anicteric sclerae, moist conjunctiva, no lid-lag Pupils equal round reactive to light ENMT: NC/AT Oropharynx clear, no erythema, or exudates Neck: Supple, FROM, no masses, or JVD No carotid bruits No thyromegaly Lungs: Clear to auscultation Clear to percussion Normal respiratory effort, no accessory muscle use Cardiovascular: Heart regular in rate and rhythm, No murmurs, gallops, or rubs No peripheral edema Abdominal: Soft Nontender, no guarding, rebound or rigidity Abdomen moving with respiration Normoactive bowel sounds No hepatomegaly, No splenomegaly No palpable mass No abdominal wall hernia noted Skin: Normal temperature, tone, texture, turgor No induration No subcutaneous nodules No rash, lesions No ulcers Extremities: No digital cyanosis No clubbing Pedal pulses intact and symmetrical Radial pulses intact and symmetrical No calf tenderness Psychiatric: Alert and oriented to person, place and time Appropriate affect fair judgement Neuro Muscles Strength 5/5 in all 4 extremities Sensation to light touch grossly present throughout Cranial nerves II-XII grossly intact No focal sensory deficits Lymphatics: no palpable cervical or supraclavicular , or inguinal lymph nodes Results CBC & Chem 7: 12/28/19 00:27 12/28/19 00:27 Labs: Abnormal Lab Results - Last 24 Hours (Table) 12/28/19 Range/Units 00:27 Chloride 113 H (98-107) mmol/L Assessment and Plan Assessment: 44-year-old female with hypertension controlled with meds and depression. Comes in due to recurrent retrosternal chest pain admitted to rule out acute coronary syndrome anticipated length of stay less than [address] angios chest was done this morning showed no acute pathology. Atypical chest pain rule out ACS Cardiac monitoring Trend troponins Cardiology consult Pain control Aspirin Nitro when necessary Hypertension controlled Resume lisinopril Depression Resume home meds CODE STATUS: Full code DVT prophylaxis: Heparin subcu 3 times a day Discussed with: Patient, ER, RN Anticipated length of stay less than [address]: Home A total of 70 minutes was spent on the care of this complex patient more than 50% of the time was spent in counseling and care coordination.
[2019-12-28] MEDS: DESVENLAFAXINE SUCCINATE 50 MG TAB.ER.24H PO SCH (08:39)
[2019-12-28] MEDS: LISINOPRIL 10 MG TAB PO SCH (08:39)
[2019-12-28] MEDS ORDERED: methylPREDNISolone SOD SUCCI 40 MG/ML 1 ML VIAL IV STA (11:54)
--- NOTE | 2019-12-28 12:25 | P.CRDCN ---
History of Present Illness Consult date: 12/28/19 Chief complaint: Chest pain History of present illness: This is a very pleasant 44-year-old female patient with a past medical history significant for hypertension presented to the emergency room complaining of chest discomfort. She was in her usual state of health until yesterday when she started experiencing discomfort in the mid of the chest, as a sharp kind of discomfort, without any radiation to the arms or neck or shoulders, without a ssociated symptoms of shortness of breath, sweating, dizziness, or syncope. Currently the patient's chest pain free. She underwent an extensive workup including an EKG showing sinus rhythm without any significant ST or T-wave abnormalities. The chest x-ray did not show any acute abnormalities. Computed tomography scan of the chest showed no PE. The cardiac enzymes came in to be unremarkable was 2 sets of troponin. The patient is chest pain-free at this point. She does have hypertension as risk factors but no diabetes or dyslipidemia. She does have history of smoking but she stated that she is smoking intermittently. She does not carry a pack of cigarettes on her. No premature history of coronary artery disease with any immediate family members. I am going to obtain a stress test to rule out any severe underlying coronary artery disease. We'll schedule the patient to undergo a stress echocardiogram. We'll continue following up with her. Past Medical History Past Medical History: Hypertension Additional Past Medical History / Comment(s): Depression History of Any Multi-Drug Resistant Organisms: MRSA Date of last positivie culture/infection: 08/04/2017 MDRO Source:: nose Past Surgical History: No Surgical Hx Reported Past Psychological History: Anxiety, Depression Smoking Status: Current some day smoker Past Alcohol Use History: Occasional Past Drug Use History: Marijuana - Past Family History Family Additional Family Medical History / Comment(s): Premature CAD in her uncle maternal side Medications and Allergies Home Medications Medication Instructions Recorded Confirmed Type Desvenlafaxine Succinate [Pristiq 50 mg PO DAILY 11/24/15 12/28/19 History ER] Lisinopril 20 mg PO DAILY 11/24/15 12/28/19 History Albuterol Inhaler [Ventolin Hfa 1 puff INHALATION RT-QID #1 inhaler 12/27/19 12/28/19 Rx Inhaler] Allergies Allergy/AdvReac Type Severity Reaction Status Date / Time No Known Allergies Allergy Verified 05/12/16 14:57 Physical Exam Vitals: Vital Signs Temp Pulse Pulse Resp BP Pulse Ox 12/28/19 08:41 79 12/28/19 08:37 97.9 F 76 16 151/88 99 12/28/19 06:34 74 124/81 99 12/28/19 04:30 117/73 94 L 12/28/19 03:50 120/74 95 12/28/19 03:40 120/74 95 12/28/19 03:30 120/74 95 12/28/19 03:20 120/74 96 12/28/19 03:10 120/74 96 12/28/19 02:50 112/72 96 12/28/19 02:10 112/72 96 12/28/19 02:00 106/63 95 12/28/19 00:30 95 12/28/19 00:22 98 F 86 18 122/82 94 L Intake and Output 12/27/19 12/28/19 12/28/19 22:59 06:59 14:59 Other: Weight 74.843 kg - Constitutional General appearance: no acute distress - Respiratory Respiratory: bilateral: CTA - Cardiovascular Rhythm: regular Heart sounds: normal: S1, S2 Results 12/28/19 00:27 12/28/19 00:27 Cardiac Enzymes 12/28/19 12/28/19 12/28/19 Range/Units 00:27 00:27 06:17 AST 30 (14-36) U/L Troponin I <0.012 <0.012 (0.000-0.034) ng/mL Coagulation 12/28/19 Range/Units 00:27 PT 9.8 (9.0-12.0) sec APTT 22.5 (22.0-30.0) sec CBC 12/28/19 Range/Units 00:27 WBC 9.8 (3.8-10.6) k/uL RBC 4.72 (3.80-5.40) m/uL Hgb 14.8 (11.4-16.0) gm/dL Hct 45.7 (34.0-46.0) % Plt Count 296 (150-450) k/uL Comprehensive Metabolic Panel 12/28/19 Range/Units 00:27 Sodium 145 (137-145) mmol/L Potassium 4.6 (3.5-5.1) mmol/L Chloride 113 H (98-107) mmol/L Carbon Dioxide 22 (22-30) mmol/L BUN 13 (7-17) mg/dL Creatinine 0.66 (0.52-1.04) mg/dL Glucose 99 (74-99) mg/dL Calcium 8.9 (8.4-10.2) mg/dL AST 30 (14-36) U/L ALT 15 (4-34) U/L Alkaline Phosphatase 47 (38-126) U/L Total Protein 6.9 (6.3-8.2) g/dL Albumin 4.2 (3.5-5.0) g/dL Current Medications Generic Name Dose Route Start Last Admin Trade Name Freq PRN Reason Stop Dose Admin Aspirin 325 mg 12/29/19 09:00 12/28/19 08:39 Aspirin PO 325 mg DAILY JOAN Administration Desvenlafaxine Succinate 50 mg 12/28/19 09:00 12/28/19 08:39 Pristiq Er PO 50 mg DAILY JOAN Administration Famotidine 20 mg 12/28/19 12:00 Pepcid PO DAILY JOAN Sodium Chloride 1,000 mls @ 100 mls/hr 12/28/19 02:00 12/28/19 02:23 Saline 0.9% IV 100 mls/hr .Q10H JOAN Administration Lisinopril 10 mg 12/28/19 09:00 12/28/19 08:39 Zestril PO 10 mg DAILY JOAN Administration Morphine Sulfate 4 mg 12/28/19 01:47 12/28/19 08:39 Morphine Sulfate (Inj) IV 4 mg Q4HR PRN Administration Chest Pain Nitroglycerin 0.4 mg 12/28/19 01:47 Nitrostat SUBLINGUAL Q5M PRN Chest Pain Intake and Output 12/27/19 12/28/19 12/28/19 22:59 06:59 14:59 Other: Weight 74.843 kg 12/28/19 00:27 12/28/19 00:27 Assessment and Plan Assessment: Assessment #1 atypical chest discomfort #2 hypertension #3 history of smoking Plan #1 continue the current medical regimen #2 the patient was ruled out for acute coronary event #3 I will obtain a stress test to rule out severe CAD #4 follow-up with the patient Thank you for allowing us participate in her care
[2019-12-28] MEDS: FAMOTIDINE 20 MG TAB PO SCH (13:00)
[2019-12-28] MEDS ORDERED: busPIRone HCl 10 MG TAB PO PRN (16:35)
--- NOTE | 2019-12-28 19:48 | P.PN ---
Progress Note - Text Progress Note Date: 12/28/19 (delayed charting seen at 1130) Hospitalist Interval Note Patient seen and examined at bedside. chest pain free. patient notes that pain occurs with deep inspiration. She has been moving her arms more and lifting over her head more as she has been painting her living room. She does note a non productive cough. She reports this chest pain is identical to when she had bronchitis in the past. Vital signs reviewed General: non toxic, no distress, appears at stated age Derm: warm, dry Head: atraumatic, normocephalic, symmetric Eyes: EOMI, no lid lag, anicteric sclera Mouth: no lip lesion, mucus membranes moist Cardiovascular: S1S2 reg, no murmur, positive posterior tibial pulse bilateral, no pain to palpation of the chest wal Lungs: CTA bilateral, no rhonchi, no rales , no accessory muscle use Abdominal: soft, nontender to palpation, no guarding, no appreciable organomegaly Ext: no gross muscle atrophy, no edema, no contractures Neuro: CN II-XI grossly intact, no focal neuro deficits Psych: Alert, oriented, appropriate affect Assessment/Plan: 1. chest pain. ACS VS costchondritis- start steroid and pepcid, await cardio consult This is an update note for patient , for full note on see . There is no charge associated with this note.
[2019-12-28] MEDS: ALBUTEROL HFA INHALER INHALATION SCH (21:38)
[2019-12-29] MEDS: SODIUM CHLORIDE 0.9% 1,000 ML IV SCH ×2 (02:21→10:01)
[2019-12-29 04:26] LABS: Cholesterol 175 mg/dL (<200); HDL Cholesterol 45 mg/dL (40-60); LDL Cholesterol,Calculated 82 mg/dL (0-99); Triglycerides 241 mg/dL (<150)
[2019-12-29] MEDS: ALBUTEROL HFA INHALER INHALATION SCH (07:52)
[2019-12-29 08:32] VITALS: RESP 17; TEMP 98.1
[2019-12-29] MEDS ORDERED: ASPIRIN 325 MG TAB PO SCH (09:00)
[2019-12-29] MEDS: LISINOPRIL 10 MG TAB PO SCH (09:56)
[2019-12-29] MEDS: FAMOTIDINE 20 MG TAB PO SCH (09:56)
[2019-12-29] MEDS: DESVENLAFAXINE SUCCINATE 50 MG TAB.ER.24H PO SCH (10:37)
[2019-12-29 11:19] VITALS: BP 139/94; PULSE 67
--- NOTE | 2019-12-29 15:49 | P.STRESS ---
- Stress Test Note Stress Test Results/Findings: Exam Performed: stress echo exercise Exam Date: 12/29/19 Reason for Exam: Chest Pain Height: 5 ft 6 in Weight: 74.84 kg Protocol: Akash Stage: 4 Duration of Exercise: 10:08 Resting Heart Rate: 45 Resting Blood Pressure: 160/84 Maximum Achieved Heart Rate: 158 Maximum Achieved Blood Pressure: 173/108 85% PMHR: 150 100% PMHR: 176 METS: 11.5 Technologist Comment: Stress Test Results/Findings: Baseline heart rate 45 beats a minute, Baseline blood pressure 160/84 mmHg Baseline twelve-lead ECG shows sinus rhythm with early repolarization abnormalities inferolaterally Patient exercised on a Akash protocol for 10 minutes 8 seconds achieving a peak heart rate of 150 beats a minute Her pressure remained elevated through the procedure There is no ECG evidence for ischemia Occasional ventricular couplet noted Patient did complain of chest tightness but without any ECG evidence for ischemia Baseline 2-D echo showed normal LV systolic function without segmental wall motion abnormalities At peak exercise is excellent augmentation overall record for 20 without developmentalmost total Altase to light at recovery regional global LV systolic function with normal Impression Good exercise capacity No ECG is ischemia No echocardiographic evidence for ischemia
--- NOTE | 2019-12-29 18:46 | P.DS ---
Providers Date of admission: 12/28/19 01:48 Expected date of discharge: 12/29/19 Attending physician: Randy Crawford MD Consults: 12/28/19 01:48 Consult Physician Urgent Consulting Provider: Edis Lam Consult Reason/Comments: cp Do you want consulting provider notified?: Yes Primary care physician: Gavin Mcdonald [facility] Course: Discharge Diagnosis: Costochondritis Hypertension Tobacco abuse Hospital Course: Patient is a 44-year-old female with hypertension, intermittent tobacco use, and prior history of bronchitis who presented to the emergency department with retrosternal chest pain. She had initially been seen earlier in the day and discharged home after having a negative CT of the chest. She represented as her chest pain recurred. On arrival her vital signs within normal limits. Chest x-ray was unremarkable. Laboratory analysis is unremarkable. Initial troponin was negative. She was admitted for chest pain observation. The remainder of her troponins were negative. She was seen by cardiology and underwent an exercise stress echo which showed no acute ischemia. The patient had been paining her living room and continually using her arms and lifting overhead. It was felt that she likely had costochondritis as her pain was worse with inspiration and movement. She was given a trial dose of steroids in the hospital which rapidly improved her pain. She was also started on a PPI to her vent steroid-induced gastritis. She was determined stable for discharge home. She will follow up with Dr. Mcdonald in the next 2-3 days to ensure that her pain is improving. She also underwent cholesterol testing here which showed an LDL of 82 and a total cholesterol 175. Patient seen and examined at bedside. Chest pain significantly improved, no shortness of breath, no nausea, no vomiting Vital signs reviewed and stable. General: non toxic, no distress, appears at stated age Derm: warm, dry Head: atraumatic, normocephalic, symmetric Eyes: EOMI, no lid lag, anicteric sclera Mouth: no lip lesion, mucus membranes moist Cardiovascular: S1S2 reg, no murmur, positive posterior tibial pulse bilateral, Lungs: CTA bilateral, no rhonchi, no rales , no accessory muscle use Abdominal: soft, nontender to palpation, no guarding, no appreciable organomegaly Ext: no gross muscle atrophy, no edema, no contractures Neuro: CN II-XI grossly intact, no focal neuro deficits Psych: Alert, oriented, appropriate affect A total of 25 minutes of time were spent preparing this complex discharge summary . Patient Condition at Discharge: Stable Plan - Discharge Summary New Discharge Prescriptions: New methylPREDNISolone Dose Pack [Medrol Dose Pack] 4 mg PO DIRECTED #21 package Famotidine [Pepcid] 20 mg PO DAILY #30 tab Continue Lisinopril 20 mg PO DAILY Desvenlafaxine Succinate [Pristiq ER] 50 mg PO DAILY busPIRone HCL 10 mg PO BID PRN PRN Reason: Anxiety Discontinued Albuterol Inhaler [Ventolin Hfa Inhaler] 1 puff INHALATION RT-QID #1 inhaler Discharge Medication List Desvenlafaxine Succinate [Pristiq ER] 50 mg PO DAILY 11/24/15 [History] Lisinopril 20 mg PO DAILY 11/24/15 [History] busPIRone HCL 10 mg PO BID PRN 12/28/19 [History] Famotidine [Pepcid] 20 mg PO DAILY #30 tab 12/29/19 [Rx] methylPREDNISolone Dose Pack [Medrol Dose Pack] 4 mg PO DIRECTED #21 package 12/29/19 [Rx] Follow up Appointment(s)/Referral(s): Gavin Mcdonald MD [Primary Care Provider] - 1-2 days Patient Instructions/Handouts: Chest Pain (ED), Costochondritis (DC) Activity/Diet/Wound Care/Special Instructions: Activity: As tolerated Diet: heart healthy Special Instructions: Return if recurrent chest pain Discharge Disposition: HOME SELF-CARE
== END 2019-12-29 11:35 | disposition home or self-care (01) ==
LOC: EC 00:21 → 3SCARD 01:48
PROVIDERS: ADMIT Internal Medicine; ATTEND Internal Medicine
DX: M94.0 Chondrocostal junction syndrome [Tietze] (principal); F17.200 Nicotine dependence, unspecified, uncomplicated; F32.9 Major depressive disorder, single episode, unspecified; F41.9 Anxiety disorder, unspecified; I10 Essential (primary) hypertension; K29.60 Other gastritis without bleeding; T38.0X5A Adverse effect of glucocorticoids and synthetic analogues, initial encounter; Z79.899 Other long term (current) drug therapy; Z82.49 Family history of ischemic heart disease and other diseases of the circulatory system; Z86.14 Personal history of Methicillin resistant Staphylococcus aureus infection
CPT/HCPCS: 96376; 96361; 96374; 96375; 99285; 36415; 94640; 93005; 93351; 80061; 80053; 83735; 84484; 85025; 85610; 85730; G0378 ×2; J2270; J2920

== ENCOUNTER 2020-05-04 14:19 | Emergency (ER) | payer BC ==
[2020-05-04 14:55] VITALS: TEMP 98.6
[2020-05-04] MEDS ORDERED: SODIUM CHLORIDE 0.9% 1,000 ML IV STA (15:15)
[2020-05-04 15:38] LABS: Basophils # (A) 0.1 k/uL (0-0.2); Basophils % (A) 1 %; Eosinophils # (A) 0.2 k/uL (0-0.7); Eosinophils % (A) 3 %; HCT 50.2 % (34.0-46.0); HGB 16.5 gm/dL (11.4-16.0); Lymphocytes # (A) 2.4 k/uL (1.0-4.8); Lymphocytes % (A) 27 %; MCH 31.6 pg (25.0-35.0); MCHC 32.9 g/dL (31.0-37.0); Mean Platelet Volume 7.2; Monocytes # (A) 0.6 k/uL (0-1.0); Monocytes % (A) 7 %; Neutrophils # (A) 5.3 k/uL (1.3-7.7); Neutrophils % (A) 61 %; Platelet Count 324 k/uL (150-450); RBC 5.22 m/uL (3.80-5.40); RDW 13.3 % (11.5-15.5); WBC 8.8 k/uL (3.8-10.6)
[2020-05-04 15:45] LABS: Appearance,Urine Clear (Clear); Bilirubin,Urine Negative (Negative); Blood,Urine Negative (Negative); Color,Urine Colorless; Glucose,Urine (UA) Negative (Negative); Ketones,Urine Negative (Negative); Leukocyte Esterase,Urine Negative (Negative); Nitrite,Urine Negative (Negative); PH, Urine 5.5 (5.0-8.0); Protein,Urine Negative (Negative); Specific Gravity,Urine 1.001 (1.001-1.035); Urobilinogen,Urine <2.0 mg/dL (<2.0)
[2020-05-04 15:48] LABS: ALT 43 U/L (4-34); AST 41 U/L (14-36); African American GFR (CKD) >90 (>60 ml/min/1.73 sqM); Albumin 4.4 g/dL (3.5-5.0); Alkaline Phosphatase 73 U/L (38-126); Amylase 44 U/L (30-110); Anion Gap 11 mmol/L; Blood Urea Nitrogen 9 mg/dL (7-17); Calcium 9.6 mg/dL (8.4-10.2); Carbon Dioxide 20 mmol/L (22-30); Chloride 114 mmol/L (98-107); Glucose 98 mg/dL (74-99); Magnesium 2.1 mg/dL (1.6-2.3); Non-African American GFR(CKD) >90 (>60 ml/min/1.73 sqM); Potassium 4.4 mmol/L (3.5-5.1); Sodium 145 mmol/L (137-145); Total Bilirubin 0.4 mg/dL (0.2-1.3)
[2020-05-04 16:01] LABS: Amphetamine Screen,Urine Not Detected (NotDetected); Barbiturate Screen,Urine Not Detected (NotDetected); Benzodiazepines Screen,Urine Not Detected (NotDetected); Cocaine Screen,Urine Not Detected (NotDetected); Methadone Screen, Urine Not Detected (NotDetected); Opiate Screen,Urine Not Detected (NotDetected); Oxycodone Screen, Urine Not Detected (NotDetected); Phencyclidine Screen,Urine Not Detected (NotDetected); Tricyclic Antidepressant,Urine Not Detected (NotDetected); Urn Cannabinoid Scrn Not Detected (NotDetected)
[2020-05-04 16:11] LABS: Alcohol 283 mg/dL
[2020-05-04 16:22] VITALS: RESP 20
--- NOTE | 2020-05-04 16:31 | ED ---
General Adult HPI - General Chief complaint: Abdominal Pain Stated complaint: Seizure Time Seen by Provider: 05/04/20 14:58 Source: patient, family, RN notes reviewed Mode of arrival: wheelchair Limitations: no limitations - History of Present Illness Initial comments: 44-year-old female with a past medical history of hypertension, depression presents to the emergency room for "possible seizure. Patient states she woke up and vomited on herself. She thought a seizure may have caused this. Patient states she was alert after this happened. Patient did not bite her tongue. Patient does not have a seizure history. Patient denies drinking any alcohol today whatsoever.Patient has no other complaints at this time including shortness of breath, chest pain, abdominal pain, nausea or vomiting, headache, or visual changes. - Related Data Home Medications Medication Instructions Recorded Confirmed Desvenlafaxine [Pristiq ER] 100 mg PO DAILY 05/04/20 05/04/20 lisinopriL 20 mg PO DAILY 05/04/20 05/04/20 Allergies Allergy/AdvReac Type Severity Reaction Status Date / Time No Known Allergies Allergy Verified 05/04/20 16:58 Review of Systems ROS Statement: Those systems with pertinent positive or pertinent negative responses have been documented in the HPI. ROS Other: All systems not noted in ROS Statement are negative. Past Medical History Past Medical History: Hypertension Additional Past Medical History / Comment(s): Depression History of Any Multi-Drug Resistant Organisms: MRSA Date of last positivie culture/infection: 08/04/2017 MDRO Source:: nose Past Surgical History: No Surgical Hx Reported Past Psychological History: Anxiety, Depression Smoking Status: Never smoker Past Alcohol Use History: Occasional Past Drug Use History: Marijuana - Past Family History Family Additional Family Medical History / Comment(s): Premature CAD in her uncle maternal side General Exam Limitations: no limitations General appearance: alert, in no apparent distress Head exam: Present: atraumatic, normocephalic, normal inspection Eye exam: Present: normal appearance, PERRL, EOMI. Absent: scleral icterus, conjunctival injection, periorbital swelling ENT exam: Present: normal exam, mucous membranes moist Neck exam: Present: normal inspection, full ROM. Absent: tenderness, meningismus, lymphadenopathy Respiratory exam: Present: normal lung sounds bilaterally. Absent: respiratory distress, wheezes, rales, rhonchi, stridor Cardiovascular Exam: Present: regular rate, normal rhythm, normal heart sounds. Absent: systolic murmur, diastolic murmur, rubs, gallop, clicks GI/Abdominal exam: Present: soft, normal bowel sounds. Absent: distended, tenderness, guarding, rebound, rigid Neurological exam: Present: alert, oriented X3, normal gait, other (GCS 15) Course Vital Signs 05/04/20 05/04/20 14:53 15:55 Temperature 98.6 F Pulse Rate 89 66 Respiratory 18 20 Rate Blood Pressure 118/86 116/80 O2 Sat by Pulse 98 98 Oximetry Medical Decision Making - Medical Decision Making Vitals are stable. CBC CMP unremarkable. Minimal transaminitis. Urinalysis is negative. HCG is negative. Alcohol is found to be 283 which is likely the cause of patient waking up and vomiting in her sleep. I do not suspect seizure given no post ictal phase, no tongue lacerations. No history of seizure disord er. Patient is not withdrawing from alcohol, is not having tremors. CT brain shows no acute intracranial process. At this time patient will be discharged home to follow up with primary care. She'll return for any worsening symptoms. Her mother is in the room and will be giving her a ride home. Patient clinically sober at this time. - Lab Data Result diagrams: 05/04/20 15:29 05/04/20 15:29 Lab Results 05/04/20 05/04/20 05/04/20 Range/Units 15:29 15:29 15:29 WBC 8.8 (3.8-10.6) k/uL RBC 5.22 (3.80-5.40) m/uL Hgb 16.5 H (11.4-16.0) gm/dL Hct 50.2 H (34.0-46.0) % MCV 96.0 (80.0-100.0) fL MCH 31.6 (25.0-35.0) pg MCHC 32.9 (31.0-37.0) g/dL RDW 13.3 (11.5-15.5) % Plt Count 324 (150-450) k/uL Neutrophils % 61 % Lymphocytes % 27 % Monocytes % 7 % Eosinophils % 3 % Basophils % 1 % Neutrophils # 5.3 (1.3-7.7) k/uL Lymphocytes # 2.4 (1.0-4.8) k/uL Monocytes # 0.6 (0-1.0) k/uL Eosinophils # 0.2 (0-0.7) k/uL Basophils # 0.1 (0-0.2) k/uL Sodium 145 (137-145) mmol/L Potassium 4.4 (3.5-5.1) mmol/L Chloride 114 H (98-107) mmol/L Carbon Dioxide 20 L (22-30) mmol/L Anion Gap 11 mmol/L BUN 9 (7-17) mg/dL Creatinine 0.57 (0.52-1.04) mg/dL Est GFR (CKD-EPI)AfAm >90 (>60 ml/min/1.73 sqM) Est GFR (CKD-EPI)NonAf >90 (>60 ml/min/1.73 sqM) Glucose 98 (74-99) mg/dL Calcium 9.6 (8.4-10.2) mg/dL Magnesium 2.1 (1.6-2.3) mg/dL Total Bilirubin 0.4 (0.2-1.3) mg/dL AST 41 H (14-36) U/L ALT 43 H (4-34) U/L Alkaline Phosphatase 73 (38-126) U/L Total Protein 7.0 (6.3-8.2) g/dL Albumin 4.4 (3.5-5.0) g/dL Amylase 44 (30-110) U/L Lipase 48 (23-300) U/L Urine Color Colorless Urine Appearance Clear (Clear) Urine pH 5.5 (5.0-8.0) Ur Specific [place] 1.001 (1.001-1.035) Urine Protein Negative (Negative) Urine Glucose (UA) Negative (Negative) Urine Ketones Negative (Negative) Urine Blood Negative (Negative) Urine Nitrite Negative (Negative) Urine Bilirubin Negative (Negative) Urine Urobilinogen <2.0 (<2.0) mg/dL Ur Leukocyte Esterase Negative (Negative) Urine HCG, Qual (Not Detectd) Urine Opiates Screen (NotDetected) Ur Oxycodone Screen (NotDetected) Urine Methadone Screen (NotDetected) Ur Propoxyphene Screen (NotDetected) Ur Barbiturates Screen (NotDetected) U Tricyclic Antidepress (NotDetected) Ur Phencyclidine Scrn (NotDetected) Ur Amphetamines Screen (NotDetected) U Methamphetamines Scrn (NotDetected) U Benzodiazepines Scrn (NotDetected) Urine Cocaine Screen (NotDetected) U Marijuana (THC) Screen (NotDetected) Serum Alcohol 283 H* mg/dL 05/04/20 05/04/20 Range/Units 15:29 15:29 WBC (3.8-10.6) k/uL RBC (3.80-5.40) m/uL Hgb (11.4-16.0) gm/dL Hct (34.0-46.0) % MCV (80.0-100.0) fL MCH (25.0-35.0) pg MCHC (31.0-37.0) g/dL RDW (11.5-15.5) % Plt Count (150-450) k/uL Neutrophils % % Lymphocytes % % Monocytes % % Eosinophils % % Basophils % % Neutrophils # (1.3-7.7) k/uL Lymphocytes # (1.0-4.8) k/uL Monocytes # (0-1.0) k/uL Eosinophils # (0-0.7) k/uL Basophils # (0-0.2) k/uL Sodium (137-145) mmol/L Potassium (3.5-5.1) mmol/L Chloride (98-107) mmol/L Carbon Dioxide (22-30) mmol/L Anion Gap mmol/L BUN (7-17) mg/dL Creatinine (0.52-1.04) mg/dL Est GFR (CKD-EPI)AfAm (>60 ml/min/1.73 sqM) Est GFR (CKD-EPI)NonAf (>60 ml/min/1.73 sqM) Glucose (74-99) mg/dL Calcium (8.4-10.2) mg/dL Magnesium (1.6-2.3) mg/dL Total Bilirubin (0.2-1.3) mg/dL AST (14-36) U/L ALT (4-34) U/L Alkaline Phosphatase (38-126) U/L Total Protein (6.3-8.2) g/dL Albumin (3.5-5.0) g/dL Amylase (30-110) U/L Lipase (23-300) U/L Urine Color Urine Appearance (Clear) Urine pH (5.0-8.0) Ur Specific [place] (1.001-1.035) Urine Protein (Negative) Urine Glucose (UA) (Negative) Urine Ketones (Negative) Urine Blood (Negative) Urine Nitrite (Negative) Urine Bilirubin (Negative) Urine Urobilinogen (<2.0) mg/dL Ur Leukocyte Esterase (Negative) Urine HCG, Qual Not Detected (Not Detectd) Urine Opiates Screen Not Detected (NotDetected) Ur Oxycodone Screen Not Detected (NotDetected) Urine Methadone Screen Not Detected (NotDetected) Ur Propoxyphene Screen Not Detected (NotDetected) Ur Barbiturates Screen Not Detected (NotDetected) U Tricyclic Antidepress Not Detected (NotDetected) Ur Phencyclidine Scrn Not Detected (NotDetected) Ur Amphetamines Screen Not Detected (NotDetected) U Methamphetamines Scrn Not Detected (NotDetected) U Benzodiazepines Scrn Not Detected (NotDetected) Urine Cocaine Screen Not Detected (NotDetected) U Marijuana (THC) Screen Not Detected (NotDetected) Serum Alcohol mg/dL Disposition Clinical Impression: Vomiting Disposition: HOME SELF-CARE Condition: Good Instructions (If sedation given, give patient instructions): Acute Nausea and Vomiting (ED) Additional Instructions: Please follow-up with your doctor in one to 2 days. If you have any worsening symptoms return to the emergency room. Is patient prescribed a controlled substance at d/c from ED?: No Referrals: Gavin Mcdonald MD [Primary Care Provider] - 1-2 days Time of Disposition: 17:23
[2020-05-04 17:45] VITALS: BP 112/79; PULSE 69
--- NOTE | 2020-05-04 19:56 | CT ---
EXAMINATION TYPE: CT brain wo con DATE OF EXAM: 05/04/2020 COMPARISON: None INDICATION: fall, possible new onset seizure DLP: 1076.4 mGycm, Automated exposure control for dose reduction was used. CONTRAST: None CT of the brain is performed utilizing 3 mm thick sections through the posterior fossa and 3 mm thick sections through the remaining calvarium. Study is performed within 24 hours of arrival to the hosp [facility]. No abnormal hyperdensity is present to suggest an acute intracranial hemorrhage. No mass lesion is evident. No acute infarcts are evident. Ventricles and sulci are appropriate for the patient age. Paranasal sinuses and mastoid air cells within the [id number] are clear. IMPRESSIONS: 1. No acute intracranial process
== END 2020-05-04 17:39 | disposition home or self-care (01) ==
LOC: EC 14:19
DX: R11.10 Vomiting, unspecified (principal); R74.01 Elevation of levels of liver transaminase levels; I10 Essential (primary) hypertension; F41.9 Anxiety disorder, unspecified; F32.9 Major depressive disorder, single episode, unspecified; Z79.899 Other long term (current) drug therapy; Z86.14 Personal history of Methicillin resistant Staphylococcus aureus infection
CPT/HCPCS: 36415; 70450; 80053; 80306; 80320; 81003; 81025; 82150; 83690; 83735; 85025; 96360; 99284

== ENCOUNTER 2020-05-21 19:40 | Inpatient (IN) | payer BC ==
[2020-05-21 23:34] LABS: Appearance,Urine Clear (Clear); Bilirubin,Urine Negative (Negative); Blood,Urine Small (Negative); Color,Urine Yellow; Glucose,Urine (UA) Negative (Negative); Hyaline Casts,Urine 1 /lpf (0-2); Ketones,Urine Negative (Negative); Leukocyte Esterase,Urine Negative (Negative); Mucus,Urine Rare /hpf; Nitrite,Urine Negative (Negative); Protein,Urine Negative (Negative); Specific Gravity,Urine 1.017 (1.001-1.035); Squamous Epithelial Cell,Urine 2 /hpf (0-4); Urobilinogen,Urine <2.0 mg/dL (<2.0); WBC,Urine 1 /hpf (0-5)
[2020-05-21 23:43] LABS: Amphetamine Screen,Urine Not Detected (NotDetected); Barbiturate Screen,Urine Not Detected (NotDetected); Benzodiazepines Screen,Urine Not Detected (NotDetected); Cocaine Screen,Urine Not Detected (NotDetected); Methadone Screen, Urine Not Detected (NotDetected); Opiate Screen,Urine Not Detected (NotDetected); Oxycodone Screen, Urine Not Detected (NotDetected); Phencyclidine Screen,Urine Not Detected (NotDetected); Tricyclic Antidepressant,Urine Not Detected (NotDetected); Urn Cannabinoid Scrn Not Detected (NotDetected)
--- NOTE | 2020-05-22 00:40 | ED ---
Psych HPI - General Chief Complaint: Psychiatric Symptoms Stated Complaint: Mental Health Time Seen by Provider: 05/21/20 19:45 Source: patient, police Mode of arrival: ambulatory - History of Present Illness Initial Comments: Patient is a 45-year-old female past history of depression who presents emergency department for pressure and suicidal ideations. The patient reports that she was at home pain out with her friend who is also her therapist. She made comments to her that she wanted to kill her self. She is currently going through a divorce and is depressed. She also admits to drinking tonight. The patient was petitioned by her friend. Friend wrote that the patient made a comment that she was going to hang herself from her garage rafters. Upon my attempt to talk to the patient the patient refuses that she is depressed. Refuses suicidal ideations. Patient does admit to drinking alcohol tonight. States it's very infrequent when she does. Denies uses any other drugs. Denies making any suicidal statements to her therapist. No other alleviating, precipi tating or modifying factors - Related Data Home Medications Medication Instructions Recorded Confirmed Desvenlafaxine [Pristiq ER] 100 mg PO DAILY 05/04/20 05/21/20 lisinopriL 20 mg PO DAILY 05/04/20 05/21/20 Allergies Allergy/AdvReac Type Severity Reaction Status Date / Time No Known Allergies Allergy Verified 05/21/20 20:19 Review of Systems ROS Statement: Those systems with pertinent positive or pertinent negative responses have been documented in the HPI. ROS Other: All systems not noted in ROS Statement are negative. Past Medical History Past Medical History: Hypertension Additional Past Medical History / Comment(s): Depression History of Any Multi-Drug Resistant Organisms: MRSA Date of last positivie culture/infection: 08/04/2017 MDRO Source:: nose Past Surgical History: No Surgical Hx Reported Past Psychological History: Anxiety, Depression Smoking Status: Never smoker Past Alcohol Use History: Daily, Heavy Past Drug Use History: Marijuana - Past Family History Family Additional Family Medical History / Comment(s): Premature CAD in her uncle maternal side General Exam Limitations: no limitations General appearance: alert, in no apparent distress, appears intoxicated Head exam: Present: atraumatic, normocephalic, normal inspection Eye exam: Present: normal appearance, PERRL, EOMI. Absent: scleral icterus, conjunctival injection, periorbital swelling ENT exam: Present: normal exam, mucous membranes moist Neck exam: Present: normal inspection. Absent: tenderness, meningismus, lymphadenopathy Respiratory exam: Present: normal lung sounds bilaterally. Absent: respiratory distress, wheezes, rales, rhonchi, stridor Cardiovascular Exam: Present: regular rate, normal rhythm, normal heart sounds. Absent: systolic murmur, diastolic murmur, rubs, gallop, clicks GI/Abdominal exam: Present: soft, normal bowel sounds. Absent: distended, tenderness, guarding, rebound, rigid Extremities exam: Present: normal inspection, full ROM, normal capillary refill. Absent: tenderness, pedal edema, joint swelling, calf tenderness Back exam: Present: normal inspection Neurological exam: Present: alert, oriented X3, CN II-XII intact Psychiatric exam: Present: normal affect, normal mood Skin exam: Present: warm, dry, intact, normal color. Absent: rash Course Vital Signs 05/21/20 05/22/20 05/22/20 19:46 01:50 07:19 Temperature 98.1 F 98.2 F Pulse Rate 86 68 86 Respiratory 16 16 16 Rate Blood Pressure 121/85 118/71 124/86 O2 Sat by Pulse 98 100 98 Oximetry Medical Decision Making - Medical Decision Making Upon arrival the patient was placed into room 13. I attempted a full history from the patient. She does provide limited information. She will not be sober until 3 AM. She is notified at that time she will be able to be evaluated for which she understood. Patient was resting comfortably. She was given something to eat and drink. Patient is currently awaiting EPS evaluation - Lab Data Result diagrams: 05/22/20 09:10 05/23/20 11:00 Lab Results 05/21/20 05/21/20 05/22/20 Range/Units 23:26 23:26 09:10 WBC 8.2 (3.8-10.6) k/uL RBC 4.84 (3.80-5.40) m/uL Hgb 15.9 (11.4-16.0) gm/dL Hct 48.2 H (34.0-46.0) % MCV 99.5 (80.0-100.0) fL MCH 32.9 (25.0-35.0) pg MCHC 33.0 (31.0-37.0) g/dL RDW 13.5 (11.5-15.5) % Plt Count 311 (150-450) k/uL Neutrophils % 66 % Lymphocytes % 21 % Monocytes % 6 % Eosinophils % 5 % Basophils % 1 % Neutrophils # 5.4 (1.3-7.7) k/uL Lymphocytes # 1.7 (1.0-4.8) k/uL Monocytes # 0.5 (0-1.0) k/uL Eosinophils # 0.4 (0-0.7) k/uL Basophils # 0.1 (0-0.2) k/uL Sodium (137-145) mmol/L Potassium (3.5-5.1) mmol/L Chloride (98-107) mmol/L Carbon Dioxide (22-30) mmol/L Anion Gap mmol/L BUN (7-17) mg/dL Creatinine (0.52-1.04) mg/dL Est GFR (CKD-EPI)AfAm (>60 ml/min/1.73 sqM) Est GFR (CKD-EPI)NonAf (>60 ml/min/1.73 sqM) Glucose (74-99) mg/dL Calcium (8.4-10.2) mg/dL Total Bilirubin (0.2-1.3) mg/dL AST (14-36) U/L ALT (4-34) U/L Alkaline Phosphatase (38-126) U/L Total Protein (6.3-8.2) g/dL Albumin (3.5-5.0) g/dL Urine Color Yellow Urine Appearance Clear (Clear) Urine pH 5.0 (5.0-8.0) Ur Specific [place] 1.017 (1.001-1.035) Urine Protein Negative (Negative) Urine Glucose (UA) Negative (Negative) Urine Ketones Negative (Negative) Urine Blood Small H (Negative) Urine Nitrite Negative (Negative) Urine Bilirubin Negative (Negative) Urine Urobilinogen <2.0 (<2.0) mg/dL Ur Leukocyte Esterase Negative (Negative) Urine WBC 1 (0-5) /hpf Ur Squamous Epith Cells 2 (0-4) /hpf Hyaline Casts 1 (0-2) /lpf Urine Mucus Rare H (None) /hpf Urine HCG, Qual Not Detected (Not Detectd) Salicylates mg/dL Urine Opiates Screen Not Detected (NotDetected) Ur Oxycodone Screen Not Detected (NotDetected) Urine Methadone Screen Not Detected (NotDetected) Ur Propoxyphene Screen Not Detected (NotDetected) Acetaminophen ug/mL Ur Barbiturates Screen Not Detected (NotDetected) U Tricyclic Antidepress Not Detected (NotDetected) Ur Phencyclidine Scrn Not Detected (NotDetected) Ur Amphetamines Screen Not Detected (NotDetected) U Methamphetamines Scrn Not Detected (NotDetected) U Benzodiazepines Scrn Not Detected (NotDetected) Urine Cocaine Screen Not Detected (NotDetected) U Marijuana (THC) Screen Not Detected (NotDetected) Coronavirus (PCR) (Not Detectd) 05/22/20 05/22/20 Range/Units 09:10 09:11 WBC (3.8-10.6) k/uL RBC (3.80-5.40) m/uL Hgb (11.4-16.0) gm/dL Hct (34.0-46.0) % MCV (80.0-100.0) fL MCH (25.0-35.0) pg MCHC (31.0-37.0) g/dL RDW (11.5-15.5) % Plt Count (150-450) k/uL Neutrophils % % Lymphocytes % % Monocytes % % Eosinophils % % Basophils % % Neutrophils # (1.3-7.7) k/uL Lymphocytes # (1.0-4.8) k/uL Monocytes # (0-1.0) k/uL Eosinophils # (0-0.7) k/uL Basophils # (0-0.2) k/uL Sodium 140 (137-145) mmol/L Potassium 4.4 (3.5-5.1) mmol/L Chloride 111 H (98-107) mmol/L Carbon Dioxide 24 (22-30) mmol/L Anion Gap 5 mmol/L BUN 14 (7-17) mg/dL Creatinine 0.61 (0.52-1.04) mg/dL Est GFR (CKD-EPI)AfAm >90 (>60 ml/min/1.73 sqM) Est GFR (CKD-EPI)NonAf >90 (>60 ml/min/1.73 sqM) Glucose 91 (74-99) mg/dL Calcium 9.4 (8.4-10.2) mg/dL Total Bilirubin 0.5 (0.2-1.3) mg/dL AST 38 H (14-36) U/L ALT 64 H (4-34) U/L Alkaline Phosphatase 75 (38-126) U/L Total Protein 6.7 (6.3-8.2) g/dL Albumin 4.2 (3.5-5.0) g/dL Urine Color Urine Appearance (Clear) Urine pH (5.0-8.0) Ur Specific [place] (1.001-1.035) Urine Protein (Negative) Urine Glucose (UA) (Negative) Urine Ketones (Negative) Urine Blood (Negative) Urine Nitrite (Negative) Urine Bilirubin (Negative) Urine Urobilinogen (<2.0) mg/dL Ur Leukocyte Esterase (Negative) Urine WBC (0-5) /hpf Ur Squamous Epith Cells (0-4) /hpf Hyaline Casts (0-2) /lpf Urine Mucus (None) /hpf Urine HCG, Qual (Not Detectd) Salicylates <1.0 mg/dL Urine Opiates Screen (NotDetected) Ur Oxycodone Screen (NotDetected) Urine Methadone Screen (NotDetected) Ur Propoxyphene Screen (NotDetected) Acetaminophen <10.0 ug/mL Ur Barbiturates Screen (NotDetected) U Tricyclic Antidepress (NotDetected) Ur Phencyclidine Scrn (NotDetected) Ur Amphetamines Screen (NotDetected) U Methamphetamines Scrn (NotDetected) U Benzodiazepines Scrn (NotDetected) Urine Cocaine Screen (NotDetected) U Marijuana (THC) Screen (NotDetected) Coronavirus (PCR) Not Detected (Not Detectd) Disposition Clinical Impression: Depression Disposition: ADMITTED IP TO THIS HOSP Condition: Stable Is patient prescribed a controlled substance at d/c from ED?: No Decision to Admit Reason: Admit from EC
[2020-05-22] MEDS ORDERED: LORazepam 1 MG TAB PO PRN (08:49)
[2020-05-22 09:26] LABS: Basophils # (A) 0.1 k/uL (0-0.2); Basophils % (A) 1 %; Eosinophils # (A) 0.4 k/uL (0-0.7); Eosinophils % (A) 5 %; HCT 48.2 % (34.0-46.0); HGB 15.9 gm/dL (11.4-16.0); Lymphocytes # (A) 1.7 k/uL (1.0-4.8); Lymphocytes % (A) 21 %; MCH 32.9 pg (25.0-35.0); MCV 99.5 fL (80.0-100.0); Mean Platelet Volume 6.7; Monocytes # (A) 0.5 k/uL (0-1.0); Monocytes % (A) 6 %; Neutrophils # (A) 5.4 k/uL (1.3-7.7); Neutrophils % (A) 66 %; Platelet Count 311 k/uL (150-450); RBC 4.84 m/uL (3.80-5.40); RDW 13.5 % (11.5-15.5); WBC 8.2 k/uL (3.8-10.6)
[2020-05-22 09:37] LABS: ALT 64 U/L (4-34); AST 38 U/L (14-36); Acetaminophen <10.0 ug/mL; African American GFR (CKD) >90 (>60 ml/min/1.73 sqM); Albumin 4.2 g/dL (3.5-5.0); Alkaline Phosphatase 75 U/L (38-126); Anion Gap 5 mmol/L; Blood Urea Nitrogen 14 mg/dL (7-17); Calcium 9.4 mg/dL (8.4-10.2); Carbon Dioxide 24 mmol/L (22-30); Chloride 111 mmol/L (98-107); Glucose 91 mg/dL (74-99); Non-African American GFR(CKD) >90 (>60 ml/min/1.73 sqM); Potassium 4.4 mmol/L (3.5-5.1); Salicylate <1.0 mg/dL; Sodium 140 mmol/L (137-145); Total Bilirubin 0.5 mg/dL (0.2-1.3); Total Protein 6.7 g/dL (6.3-8.2)
[2020-05-22] MEDS: lisinopriL 20 MG TAB PO SCH (09:47)
[2020-05-22] MEDS: DESVENLAFAXINE SUCCINATE 50 MG TAB.ER.24H PO SCH (09:47)
[2020-05-22] MEDS ORDERED: MAGNESIUM HYDROXIDE 2,400 MG/10 ML CUP PO PRN (16:14)
[2020-05-22] MEDS ORDERED: ACETAMINOPHEN TAB 325 MG TAB PO PRN (16:14)
[2020-05-22] MEDS ORDERED: ZIPRASIDONE 20 MG VIAL IM PRN (16:14)
[2020-05-22] MEDS ORDERED: MAG HYDROX/AL HYDROX/SIMETH 30 ML CUP PO PRN (16:14)
[2020-05-22] MEDS ORDERED: NICOTINE 7MG/24HR PATCH TRANSDERM SCH (16:15)
[2020-05-22] MEDS ORDERED: LORazepam 2 MG/ML INJ IM PRN (16:19)
--- NOTE | 2020-05-22 21:17 | P.CONS ---
History of Present Illness - Reason for Consult Consult date: 05/22/20 Medical management Requesting physician: Jerome Palumbo - Chief Complaint Depressed - History of Present Illness Consultation: This is a very pleasant 45-year-old patient of Dr. Gavin Mcdonald. Known history of depression and anxiety. Patient had been drinking heavy alcohol up to was 6 months ago. Was sober. Patient then drank on the weekend. She attends AA meetings 5 times a week. And has a sponsor. Patient has twins. She is doing hybrid classes for her twins because of COVID. She is a kindergarten aide. Because of babysitting problems she quit her job this week. She has a counselor. She told the causation depressed and having some suicidal ideation. She was petitioned by her friend. She wanted to hang does have by the rafters in the get arch. Not been sleeping well. Appetite okay. No fever no chills Review of systems: GEN.: Tired EYES: None HEENT: None NECK: None RESPIRATORY: None CARDIOVASCULAR: None GASTROINTESTINAL: None GENITOURINARY: None MUSCULOSKELETAL: None LYMPHATICS: None HEMATOLOGICAL: None PSYCHIATRY: Depressed NEUROLOGICAL: decreased sleep Past medical history to include: Depression, anxiety, hypertension, nicotine dependence Social history: . Has twins 4 years old. Was drinking heavy in the past sober up to 6 months ago. Smokes a pack a day for 20 years Physical examination: VITAL SIGNS: 98.1, 86, 16, 121/85, 98% room air GENERAL: BMI 22.6, sitting at the edge of bed, anxious. EYES: Pupils equal. Conjunctiva seymour bagginess under the eyes l. HEENT: External appearance of nose and ears normal, oral cavity grossly normal. NECK: JVD not raised; masses not palpable. HEART: First and second heart sounds are normal; no edema. LUNGS: Respiratory rate normal; clear to auscultation. ABDOMEN: Soft, nontender, liver spleen not palpable, no masses palpable. PSYCH: [Alert and oriented x3; mood and affect anxious and depressed. NEUROLOGICAL: Cranial nerves grossly intact; no facial asymmetry, power and sensation grossly intact. LYMPHATICS: No lymph nodes palpable in the axilla and neck INVESTIGATIONS, reviewed in the clinical context: White count 8.2 hemoglobin 15.9 platelets 311 potassium 4.4 creatinine 0.61 AST 38 ALT 64 Urine drug screen negative COVID 19 PCR not detected Assessment: -Major depression recurrent without psychosis with suicidal ideation -Alcohol use disorder was in remission. 6 months started drinking last weekend. -Chronic nicotine dependence cigarette smoker -Chronic insomnia from anxiety depression -Alcoholic hepatitis Plan: Care was discussed at length with the patient. Consult about smoking and alcohol. Nicotine patch. Should follow-up with a family doctor but discharge. Discussed with her how to engage in positive activities. Thank you Dr. Palumbo Past Medical History Past Medical History: Hypertension Additional Past Medical History / Comment(s): Depression History of Any Multi-Drug Resistant Organisms: MRSA Year Discovered:: 08/04/2017 MDRO Source:: nose Past Surgical History: No Surgical Hx Reported Past Psychological History: Anxiety, Depression Smoking Status: Never smoker Past Alcohol Use History: Daily, Heavy Past Drug Use History: Marijuana - Past Family History Family Additional Family Medical History / Comment(s): Premature CAD in her uncle maternal side Medications and Allergies Home Medications Medication Instructions Recorded Confirmed Type Desvenlafaxine [Pristiq ER] 100 mg PO DAILY 05/04/20 05/21/20 History lisinopriL 20 mg PO DAILY 05/04/20 05/21/20 History Allergies Allergy/AdvReac Type Severity Reaction Status Date / Time No Known Allergies Allergy Verified 05/21/20 20:19 Physical Exam Vitals: Vital Signs Temp Pulse Pulse Resp BP BP Pulse Ox 05/22/20 16:56 97 F L 62 14 153/90 97 05/22/20 07:19 86 16 124/86 98 05/22/20 01:50 98.2 F 68 16 118/71 100 Results CBC & Chem 7: 05/22/20 09:10 05/22/20 09:10 Labs: Abnormal Lab Results - Last 24 Hours (Table) 05/21/20 05/22/20 05/22/20 Range/Units 23:26 09:10 09:10 Hct 48.2 H (34.0-46.0) % Chloride 111 H (98-107) mmol/L AST 38 H (14-36) U/L ALT 64 H (4-34) U/L Urine Blood Small H (Negative) Urine Mucus Rare H (None) /hpf
[2020-05-22] MEDS: NICOTINE 21MG/24HR PATCH TRANSDERM SCH (22:19)
[2020-05-23] MEDS: NICOTINE 21MG/24HR PATCH TRANSDERM SCH (09:06)
[2020-05-23] MEDS: lisinopriL 20 MG TAB PO SCH (09:06)
[2020-05-23] MEDS: DESVENLAFAXINE SUCCINATE 50 MG TAB.ER.24H PO SCH (09:06)
[2020-05-23] MEDS ORDERED: hydrOXYzine pamoate 25 MG CAP PO PRN (10:39)
--- NOTE | 2020-05-23 11:29 | P.HP ---
Psychiatric H&P - . H&P Date: 05/23/20 History & Physical: Allergies Allergy/AdvReac Type Severity Reaction Status Date / Time No Known Allergies Allergy Verified 05/21/20 20:19 Vital Signs Temp 97 F L 05/22/20 16:56 Pulse 62 05/22/20 16:56 Resp 14 05/22/20 16:56 BP 153/90 05/22/20 16:56 Pulse Ox 97 05/22/20 16:56 Laboratory Last Values WBC 8.2 k/uL (3.8-10.6) 05/22/20 09:10 RBC 4.84 m/uL (3.80-5.40) 05/22/20 09:10 Hgb 15.9 gm/dL (11.4-16.0) 05/22/20 09:10 Hct 48.2 % (34.0-46.0) H 05/22/20 09:10 MCV 99.5 fL (80.0-100.0) 05/22/20 09:10 MCH 32.9 pg (25.0-35.0) 05/22/20 09:10 MCHC 33.0 g/dL (31.0-37.0) 05/22/20 09:10 RDW 13.5 % (11.5-15.5) 05/22/20 09:10 Plt Count 311 k/uL (150-450) 05/22/20 09:10 Neutrophils % 66 % 05/22/20 09:10 Lymphocytes % 21 % 05/22/20 09:10 Monocytes % 6 % 05/22/20 09:10 Eosinophils % 5 % 05/22/20 09:10 Basophils % 1 % 05/22/20 09:10 Neutrophils # 5.4 k/uL (1.3-7.7) 05/22/20 09:10 Lymphocytes # 1.7 k/uL (1.0-4.8) 05/22/20 09:10 Monocytes # 0.5 k/uL (0-1.0) 05/22/20 09:10 Eosinophils # 0.4 k/uL (0-0.7) 05/22/20 09:10 Basophils # 0.1 k/uL (0-0.2) 05/22/20 09:10 Sodium 140 mmol/L (137-145) 05/22/20 09:10 Potassium 4.4 mmol/L (3.5-5.1) 05/22/20 09:10 Chloride 111 mmol/L (98-107) H 05/22/20 09:10 Carbon Dioxide 24 mmol/L (22-30) 05/22/20 09:10 Anion Gap 5 mmol/L 05/22/20 09:10 BUN 14 mg/dL (7-17) 05/22/20 09:10 Creatinine 0.61 mg/dL (0.52-1.04) 05/22/20 09:10 Est GFR (CKD-EPI)AfAm >90 (>60 ml/min/1.73 sqM) 05/22/20 09:10 Est GFR (CKD-EPI)NonAf >90 (>60 ml/min/1.73 sqM) 05/22/20 09:10 Glucose 91 mg/dL (74-99) 05/22/20 09:10 Calcium 9.4 mg/dL (8.4-10.2) 05/22/20 09:10 Total Bilirubin 0.5 mg/dL (0.2-1.3) 05/22/20 09:10 AST 38 U/L (14-36) H 05/22/20 09:10 ALT 64 U/L (4-34) H 05/22/20 09:10 Alkaline Phosphatase 75 U/L (38-126) 05/22/20 09:10 Total Protein 6.7 g/dL (6.3-8.2) 05/22/20 09:10 Albumin 4.2 g/dL (3.5-5.0) 05/22/20 09:10 Urine Color Yellow 05/21/20 23:26 Urine Appearance Clear (Clear) 05/21/20 23:26 Urine pH 5.0 (5.0-8.0) 05/21/20 23:26 Ur Specific [place] 1.017 (1.001-1.035) 05/21/20 23:26 Urine Protein Negative (Negative) 05/21/20 23:26 Urine Glucose (UA) Negative (Negative) 05/21/20 23:26 Urine Ketones Negative (Negative) 05/21/20 23:26 Urine Blood Small (Negative) H 05/21/20 23:26 Urine Nitrite Negative (Negative) 05/21/20 23:26 Urine Bilirubin Negative (Negative) 05/21/20 23: Urine Urobilinogen <2.0 mg/dL (<2.0) 05/21/20 23: Ur Leukocyte Esterase Negative (Negative) 05/21/20 23:26 Urine WBC 1 /hpf (0-5) 05/21/20 23:26 Ur Squamous Epith Cells 2 /hpf (0-4) 05/21/20 23: Hyaline Casts 1 /lpf (0-2) 05/21/20 23: Urine Mucus Rare /hpf (None) H 05/21/20 23: Urine HCG, Qual Not Detected (Not Detectd) 05/21/20 23: Salicylates <1.0 mg/dL 05/22/20 09:10 Urine Opiates Screen Not Detected (NotDetected) 05/21/20 23:26 Ur Oxycodone Screen Not Detected (NotDetected) 05/21/20 23:26 Urine Methadone Screen Not Detected (NotDetected) 05/21/20 23: Ur Propoxyphene Screen Not Detected (NotDetected) 05/21/20 23: Acetaminophen <10.0 ug/mL 05/22/20 09:10 Ur Barbiturates Screen Not Detected (NotDetected) 05/21/20 23:26 U Tricyclic Antidepress Not Detected (NotDetected) 05/21/20 23:26 Ur Phencyclidine Scrn Not Detected (NotDetected) 05/21/20 23:26 Ur Amphetamines Screen Not Detected (NotDetected) 05/21/20 23: U Methamphetamines Scrn Not Detected (NotDetected) 05/21/20 23:26 U Benzodiazepines Scrn Not Detected (NotDetected) 05/21/20 23:26 Urine Cocaine Screen Not Detected (NotDetected) 05/21/20 23:26 U Marijuana (THC) Screen Not Detected (NotDetected) 05/21/20 23:26 Coronavirus (PCR) Not Detected (Not Detectd) 05/22/20 09:11 05/23/20 11:12 IDENTIFYING DATA: Patient is a 45-year-old female with significant history of alcohol use disorder was admitted for suicidal ideation in the context of alcohol use HPI: Patient presented to the hospital on 05/22/2020 with suicidal ideation in the context of alcohol use. Patient reports that on Friday morning she began drinking and was "not in the right frame of mind." She states her therapist came over to talk to her and that she verbalized statement that she would "hang from the rafters." Patient endorses significant symptoms of depression. She states that her stressors have been building up since this past October when the pandemic first started. She reports that with school abruptly ending, she has been unable to work and at the same time has had to take care of 10-year-old twins Ranjith and Zoila. Furthermore, the patient has had issues with the relationship with her who at one point lost custody of the children. Due to her increasing alcohol use, CPS became involved as well. The patient endorses that her alcohol use has increased significantly over the pandemic. She reports drinking up to half a fifth of liquor daily. This culminated in her going to [facility] for rehab for 11 days in December. Patient endorses significant symptoms of depression including difficulty sleeping, low appetite, and intermittent suicidal thoughts. She reports attempting suicide once back in 2008 after she was fired from her previous job then. She denies any attempts during this pandemic. She is not endorsing any flight of ideas, racing thoughts, or increased goal-directed behavior. She denies any auditory or visual hallucinations. She denies any paranoia or delusions. She does not endorse any significant history of trauma. Patient does report elevated anxiety which she attributes to all her stressors and that she is pushed alcohol use as a way to cope. She is currently open with [facility] for close follow-up for her alcohol use. She does report a history of withdrawal symptoms including tremors and hallucinations. She denies any history of seizure. She smokes one pack per day. She denies any marijuana, cocaine, heroin, or any other illicit drug use. PAST PSYCHIATRIC HISTORY: Patient states that she has been diagnosed depression and anxiety in the past. She is currently open with [facility] with Dr Rothman. she reports previous trials with Lamictal, Prozac, and has been currently prescribed Pristiq with the past 3 years. She reports no prior inpatient psychiatric hospitalizations. She has been to rehab 5 times the last being in December at [facility]. She has tried naltrexone, Antabuse, and Campral for alcohol cessation in the past. She reports one prior attempt at suicide in 2008 by overdose. PMH: Hypertension ALLERGIES: No known allergies CHEMICAL DEPENDENCY HISTORY: as per HPI FAMILY PSYCHIATRIC/SUBSTANCE USE HISTORY: She reports that her 2 brothers are recovering alcoholics. She states that her parents were both alcoholics as well. SOCIAL HISTORY: Patient was born and raised in [place]. She has been working as a coffee shop aide. Highest level of education is 2.5 years of college. She has been for 13 years and is on her second marriage. She has 10-year-old twins named Ranjith and Zoila. CPS case is currently open. She is not taoist. She reports multiple family members in the [place] area who are supportive. MENTAL STATUS EXAM: General Appearance: Patient appears to be stated age is alert, directable, and attempts to cooperate. Patient appears to have fair hygiene and grooming. Behavior: Patient is seated without any agitated behavior. Appropriately tearful. Speech: Patient's speech is fluent and nonpressured. Mood/Affect: Patient reports their mood is depressed, affect is congruent, sad, tearful Suicidality/Homicidality: Patient denies having any homicidal ideation intent or plan. Denies any current suicidal ideations, intention, and/or plan. Perceptions: Patient denies any visual hallucinations and denies any auditory hallucinations Though content/process: There is no evidence of any delusional thought content and thought process is linear and goal-directed. Memory and concentration: AOX3, grossly intact for the purposes of this session. Can spell "WORLD" backwards Judgment and insight: Fair STRENGTHS/WEAKNESSES: strength is that patient has housing and a supportive family. She is future oriented and is enrolled in compliance of outpatient services.. Weakness is that patient ongoing alcohol use and multiple psychosocial stressors at home. INTELLECT: average IMPRESSIONS: Major depressive disorder, recurrent, severe Alcohol use disorder Anxiety disorder, unspecified PLAN: -Patient is admitted under voluntary status to [facility] for stabilization of psychiatric symptoms and safety. Patient signed adult voluntary form and medication consent and is placed in patient's chart. -Medications : Will start patient on Remeron 15 mg by mouth at bedtime for depression/insomnia/appetite Vistaril 25 mg by mouth every 6 hours when necessary for anxiety Continue Pristiq 100 mg by mouth daily for depression/anxiety Start naltrexone 50 mg by mouth at bedtime for alcohol cessation - we will monitor patient's liver function in 2-3 days -Ativan and Geodon PRN for agitation/aggression -WA protocol with Ativan PRN for ETOH withdrawal -Patient was counselled on substance abuse and desired to cut back on use -Patient was informed of the risks, benefits and side effects of the medication and patient verbally consented to taking the medications. Patient signed med consent form and was placed in chart. -Internal Medicine consult to perform medical evaluation and physical. -NRT - nicotine patch -SW on board for discharge planning. Encourage patient to participate in groups to work on coping skills. Patient is open to returning to [facility] for rehab.
[2020-05-23 11:37] LABS: ALT 57 U/L (4-34); AST 40 U/L (14-36); African American GFR (CKD) >90 (>60 ml/min/1.73 sqM); Albumin 4.5 g/dL (3.5-5.0); Alkaline Phosphatase 73 U/L (38-126); Anion Gap 3 mmol/L; Blood Urea Nitrogen 13 mg/dL (7-17); Calcium 9.8 mg/dL (8.4-10.2); Carbon Dioxide 29 mmol/L (22-30); Chloride 104 mmol/L (98-107); Cholesterol 248 mg/dL (<200); Glucose 107 mg/dL (74-99); HDL Cholesterol 71 mg/dL (40-60); LDL Cholesterol,Calculated 114 mg/dL (0-99); Non-African American GFR(CKD) >90 (>60 ml/min/1.73 sqM); Potassium 4.7 mmol/L (3.5-5.1); Sodium 136 mmol/L (137-145); Total Bilirubin 0.7 mg/dL (0.2-1.3); Total Protein 7.3 g/dL (6.3-8.2); Triglycerides 316 mg/dL (<150)
[2020-05-23] MEDS: LORazepam 1 MG TAB PO PRN (13:50)
[2020-05-23] MEDS: NALTREXONE HCL 50 MG TAB PO SCH (20:43)
[2020-05-23] MEDS: MIRTAZAPINE 15 MG TAB PO SCH (20:43)
[2020-05-23 21:09] LABS: Hemoglobin A1C 5.2 % (4.0-6.0)
[2020-05-24 07:07] VITALS: RESP 16
[2020-05-24] MEDS: NICOTINE 21MG/24HR PATCH TRANSDERM SCH (08:40)
[2020-05-24] MEDS: lisinopriL 20 MG TAB PO SCH (08:41)
[2020-05-24] MEDS: DESVENLAFAXINE SUCCINATE 50 MG TAB.ER.24H PO SCH (08:41)
--- NOTE | 2020-05-24 09:26 | P.PN ---
Progress Note - Text Progress Note Date: 05/24/20 Interval History: Patient was seen wandering the hallways and was directable and agreeable to speak with mortgage or loan underwriter in the office. She reports that she feels significantly better today. She rates her depression 3 out of 10 in severity with 10 being very severe. She reports that she was able to sleep well last night. She is not endorsing any significant health concerns at this time. She required Ativan yesterday afternoon for tremors. At this time patient denies any suicidal or homicidal ideations, intent or plan. Patient denies any auditory, visual hallucinations and denies any paranoia or delusions. Patient denies any side effects from the medications and has been compliant with meds. Mental Status Exam: General Appearance: Patient appears to be stated age is alert, directable, and cooperative. Behavior: Patient is calmly seated without any agitated behavior. Speech: Patient's speech is fluent and nonpressured. Mood/Affect: Mood is improving mildly, affect is congruent and constricted. Suicidality/Homicidality: Patient denies having any suicidal or homicidal ideation intent or plan. Perceptions: Patient denies any visual hallucinations and denies any auditory hallucinations Though content/process: There is no evidence of any delusional thought content and thought process is linear and goal-directed. Memory and concentration: AOX3, grossly intact for the purposes of this session Judgment and insight: Improving mildly Assessment Major depressive disorder, recurrent, severe Alcohol use disorder Anxiety disorder, unspecified Plan: -Patient continues to meet criteria for inpatient psychiatric admission for symptom stabilization and safety. Patient has signed adult voluntary form and medication consent and was placed in patient's chart. -Medications: Remeron 15 mg by mouth at bedtime for depression/insomnia/appetite Vistaril 25 mg by mouth every 6 hours when necessary for anxiety Pristiq 100 mg by mouth daily for depression/anxiety Naltrexone 50 mg by mouth at bedtime for alcohol cessation - CMP ordered for tomorrow. -When necessary Ativan and Geodon for agitation/aggression. -NRT - nicotine patch -SW on board for discharge planning. Encouraged the patient to participate in milieu.
[2020-05-24] MEDS: LORazepam 1 MG TAB PO PRN (12:29)
[2020-05-24] MEDS: MIRTAZAPINE 15 MG TAB PO SCH (20:48)
[2020-05-24] MEDS: NALTREXONE HCL 50 MG TAB PO SCH (20:48)
[2020-05-25 06:56] VITALS: TEMP 98
[2020-05-25 08:01] VITALS: BP 121/84; PULSE 69
[2020-05-25] MEDS: lisinopriL 20 MG TAB PO SCH (08:01)
[2020-05-25] MEDS: DESVENLAFAXINE SUCCINATE 50 MG TAB.ER.24H PO SCH (08:01)
[2020-05-25] MEDS: NICOTINE 21MG/24HR PATCH TRANSDERM SCH (08:01)
[2020-05-25] MEDS: LORazepam 1 MG TAB PO PRN (08:02)
--- NOTE | 2020-05-25 09:37 | P.DS ---
Providers Date of admission: 05/22/20 16:03 Expected date of discharge: 05/25/20 Attending physician: Jerome Palumbo MD Consults: 05/22/20 16:14 Consult Physician Routine Consulting Provider: Maurizio Couch Consult Reason/Comments: H&P and medical Do you want consulting provider notified?: Yes Primary care physician: Gavin Mcdonald - Discharge Diagnosis(es) (1) Major depressive disorder Current Visit: Yes Status: Acute Priority: High (2) Alcohol use disorder Current Visit: Yes Status: Chronic Priority: Medium (3) Tobacco use Current Visit: Yes Status: Chronic Priority: Medium Hospital Course: Admission HPI: Patient is a 45-year-old female with significant history of alcohol use disorder was admitted for suicidal ideation in the context of alcohol use. Patient presented to the hospital on 05/22/2020 with suicidal ideation in the context of alcohol use. Patient reports that on Friday morning she began drinking and was "not in the right frame of mind." She states her therapist came over to talk to her and that she verbalized statement that she would "hang from the rafters." Patient endorses significant symptoms of depression. She states that her stressors have been building up since this past October when the pandemic first started. She reports that with school abruptly ending, she has been unable to work and at the same time has had to take care of 10-year-old twins Ranjith and Zoila. Furthermore, the patient has had issues with the relationship with her who at one point lost custody of the children. Due to her increasing alcohol use, CPS became involved as well. The patient endorses that her alcohol use has increased significantly over the pandemic. She reports drinking up to half a fifth of liquor daily. This culminated in her going to [facility] for rehab for 11 days in December. Patient endorses significant symptoms of depression including difficulty sleeping, low appetite, and intermittent suicidal thoughts. She reports attempting suicide once back in 2008 after she was fired from her previous job then. She denies any attempts during this pandemic. She is not endorsing any flight of ideas, racing thoughts, or increased goal-directed behavior. She denies any auditory or visual hallucinations. She denies any paranoia or delusions. She does not endorse any significant history of trauma. Patient does report elevated anxiety which she attributes to all her stressors and that she is pushed alcohol use as a way to cope. She is currently open with [facility] for close follow-up for her alcohol use. She does report a history of withdrawal symptoms including tremors and hallucinations. She denies any history of seizure. She smokes one pack per day. She denies any marijuana, cocaine, heroin, or any other illicit drug use. Hospital course: Upon admission to the unit patient was initially dressed and tearful. Patient was however directable and agreeable to commence treatment. Patient got along well with other patients on the unit and followed unit protocol. Patient was compliant with the medications and denied any side effects throughout hospital course. Patient was started on Remeron and naltrexone and continued on her home medication of Pristiq. Patient spoke of her stressors and engaged in therapy both group and individual. Patient was also seen by medical team for history and physical exam. Patient expresses strong desire to go to rehab at [facility] upon discharge. Throughout the course of the hospitalization patient gradually improved with regards to mood, depression, and sleep and became future oriented with improved insight and judgment. On the day of discharge patient denied any suicidal or homicidal ideations intent or plan denied any auditory or visual hallucinations. Patient endorsed wanting to live for her family, especially her 2 twin children. The patient denied any access to guns or weapons. Patient denied any paranoia and did not endorse any delusions. Patient does have a significant history of substance abuse however was counseled on abstaining from all substances including alcohol and marijuana. Patient was offered and accepted inpatient substance-abuse rehab. Patient was also counseled on the medications and need for regular compliance and was encouraged to follow-up with their outpatient appointment for mental health and also for primary care. Prior to discharge a family meeting will be arranged by executive secretary social welfare to answer any questions and ensure safety upon discharge. Mental status exam: General Appearance: Patient appears to be stated age is alert, pleasant, and cooperative. Patient is in no acute distress and has fair hygiene and grooming Behavior: Patient is calmly seated without any agitated behavior. Speech: Patient's speech is fluent and nonpressured. Mood/Affect: Patient reports their mood is "much better", affect is congruent and euthymic. Suicidality/Homicidality: Patient denies having any suicidal or homicidal ideation intent or plan. Perceptions: Patient denies any auditory or visual hallucinations. Though content/process: There is no evidence of any delusional thought content and thought process is linear and goal-directed and more future oriented Memory and concentration: AOX3, grossly intact for the purposes of this session. Can spell "WORLD" backwards correctly. Judgment and insight: Improved with guarded prognosis Impression: Major depressive disorder, recurrent, severe Alcohol use disorder Tobacco use disorder Plan: -Continue with discharge today as patient has improved and stabilized psychiatrically and is not currently an imminent threat to herself and/or others. Patient will remain at chronically elevated risk for harm to self and/or others due to her alcohol use. -Continue medications: Pristiq 100 mg by mouth daily for depression/anxiety Remeron 15 mg by mouth at bedtime for depression/insomnia Naltrexone 50 mg by mouth at bedtime for alcohol cessation Nicotine replacement therapypatches -Patient was counseled on the need for medication compliance and appropriate follow-up at mental health and also primary care for medical issues. Patient verbalized understanding and agreed. -Social work to arrange for and conduct family meeting to ensure safety upon d ischarge and answer any questions/concerns. Social work also to arrange for patients follow up appointments for psychiatric care along with follow up with primary care provider. -Patient counseled on abstaining from recreational drugs and marijuana and alcohol. Was informed/educated on the adverse effects on their physical and mental health. Patient verbally agreed and understood. Patient was offered substance abuse treatment and will be going to [facility]. -Patient was instructed to return to the hospital or seek immediate medical care if their psychiatric or medical symptoms do worsen or reoccur. Vital Signs Temp 98 F 05/25/20 06:29 Pulse 69 05/25/20 08:00 Resp 16 05/25/20 06:29 BP 121/84 05/25/20 08:00 Pulse Ox 97 05/22/20 16:56 Laboratory Results WBC 8.2 k/uL (3.8-10.6) 05/22/20 09:10 RBC 4.84 m/uL (3.80-5.40) 05/22/20 09:10 Hgb 15.9 gm/dL (11.4-16.0) 05/22/20 09:10 Hct 48.2 % (34.0-46.0) H 05/22/20 09:10 MCV 99.5 fL (80.0-100.0) 10/19/20 09:10 MCH 32.9 pg (25.0-35.0) 05/22/20 09:10 MCHC 33.0 g/dL (31.0-37.0) 05/22/20 09:10 RDW 13.5 % (11.5-15.5) 05/22/20 09:10 Plt Count 311 k/uL (150-450) 05/22/20 09:10 Neutrophils % 66 % 05/22/20 09:10 Lymphocytes % 21 % 05/22/20 09:10 Monocytes % 6 % 05/22/20 09:10 Eosinophils % 5 % 05/22/20 09:10 Basophils % 1 % 05/22/20 09:10 Neutrophils # 5.4 k/uL (1.3-7.7) 05/22/20 09:10 Lymphocytes # 1.7 k/uL (1.0-4.8) 05/22/20 09:10 Monocytes # 0.5 k/uL (0-1.0) 05/22/20 09:10 Eosinophils # 0.4 k/uL (0-0.7) 05/22/20 09:10 Basophils # 0.1 k/uL (0-0.2) 05/22/20 09:10 Sodium 136 mmol/L (137-145) L 05/23/20 11:00 Potassium 4.7 mmol/L (3.5-5.1) 05/23/20 11:00 Chloride 104 mmol/L (98-107) 05/23/20 11:00 Carbon Dioxide 29 mmol/L (22-30) 05/23/20 11:00 Anion Gap 3 mmol/L 05/23/20 11:00 BUN 13 mg/dL (7-17) 05/23/20 11:00 Creatinine 0.70 mg/dL (0.52-1.04) 05/23/20 11:00 Est GFR (CKD-EPI)AfAm >90 (>60 ml/min/1.73 sqM) 05/23/20 11:00 Est GFR (CKD-EPI)NonAf >90 (>60 ml/min/1.73 sqM) 05/23/20 11:00 Glucose 107 mg/dL (74-99) H 05/23/20 11:[address] Glu mg/dL 103 05/23/20 11:00 Hemoglobin A1c 5.2 % (4.0-6.0) 05/23/20 11:00 Calcium 9.8 mg/dL (8.4-10.2) 05/23/20 11:00 Total Bilirubin 0.7 mg/dL (0.2-1.3) 05/23/20 11:00 AST 40 U/L (14-36) H 05/23/20 11:00 ALT 57 U/L (4-34) H 05/23/20 11:00 Alkaline Phosphatase 73 U/L (38-126) 05/23/20 11:00 Total Protein 7.3 g/dL (6.3-8.2) 05/23/20 11:00 Albumin 4.5 g/dL (3.5-5.0) 05/23/20 11:00 Triglycerides 316 mg/dL (<150) H 05/23/20 11:00 Cholesterol 248 mg/dL (<200) H 05/23/20 11:00 LDL Cholesterol, Calc 114 mg/dL (0-99) H 05/23/20 11:00 HDL Cholesterol 71 mg/dL (40-60) H 05/23/20 11:00 TSH 1.390 mIU/L (0.465-4.680) 05/23/20 11:00 Urine Color Yellow 05/21/20 23:26 Urine Appearance Clear (Clear) 05/21/20 23: Urine pH 5.0 (5.0-8.0) 05/21/20 23: Ur Specific [place] 1.017 (1.001-1.035) 05/21/20 23:26 Urine Protein Negative (Negative) 05/21/20 23: Urine Glucose (UA) Negative (Negative) 05/21/20 23: Urine Ketones Negative (Negative) 05/21/20 23: Urine Blood Small (Negative) H 05/21/20 23:26 Urine Nitrite Negative (Negative) 05/21/20 23: Urine Bilirubin Negative (Negative) 05/21/20 23: Urine Urobilinogen <2.0 mg/dL (<2.0) 05/21/20 23: Ur Leukocyte Esterase Negative (Negative) 05/21/20 23:26 Urine WBC 1 /hpf (0-5) 05/21/20 23:26 Ur Squamous Epith Cells 2 /hpf (0-4) 05/21/20 23:26 Hyaline Casts 1 /lpf (0-2) 05/21/20 23:26 Urine Mucus Rare /hpf (None) H 05/21/20 23:26 Urine HCG, Qual Not Detected (Not Detectd) 05/21/20 23: Salicylates <1.0 mg/dL 05/22/20 09:10 Urine Opiates Screen Not Detected (NotDetected) 05/21/20 23:26 Ur Oxycodone Screen Not Detected (NotDetected) 05/21/20 23: Urine Methadone Screen Not Detected (NotDetected) 05/21/20 23: Ur Propoxyphene Screen Not Detected (NotDetected) 05/21/20 23: Acetaminophen <10.0 ug/mL 05/22/20 09:10 Ur Barbiturates Screen Not Detected (NotDetected) 05/21/20 23:26 U Tricyclic Antidepress Not Detected (NotDetected) 05/21/20 23:26 Ur Phencyclidine Scrn Not Detected (NotDetected) 05/21/20 23:26 Ur Amphetamines Screen Not Detected (NotDetected) 05/21/20 23:26 U Methamphetamines Scrn Not Detected (NotDetected) 05/21/20 23:26 U Benzodiazepines Scrn Not Detected (NotDetected) 05/21/20 23:26 Urine Cocaine Screen Not Detected (NotDetected) 05/21/20 23:26 U Marijuana (THC) Screen Not Detected (NotDetected) 05/21/20 23:26 Coronavirus (PCR) Not Detected (Not Detectd) 05/22/20 09:11 Allergies Allergy/AdvReac Type Severity Reaction Status Date / Time No Known Allergies Allergy Verified 05/21/20 20:19 Patient Condition at Discharge: Stable Plan - Discharge Summary Discharge Rx Participant: Yes New Discharge Prescriptions: New Nicotine 21Mg/24Hr Patch [Habitrol] 1 patch TRANSDERM DAILY 30 Days patch Mirtazapine [Remeron] 15 mg PO HS 30 Days tab Naltrexone HCl [Revia] 50 mg PO HS 30 Days tab Continue lisinopriL 20 mg PO DAILY 30 Days tab Desvenlafaxine [Pristiq ER] 100 mg PO DAILY 30 Days tab Discharge Medication List Desvenlafaxine [Pristiq ER] 100 mg PO DAILY 30 Days tab 05/25/20 [Rx] Mirtazapine [Remeron] 15 mg PO HS 30 Days tab 05/25/20 [Rx] Naltrexone HCl [Revia] 50 mg PO HS 30 Days tab 05/25/20 [Rx] Nicotine 21Mg/24Hr Patch [Habitrol] 1 patch TRANSDERM DAILY 30 Days patch 05/25/20 [Rx] lisinopriL 20 mg PO DAILY 30 Days tab 05/25/20 [Rx] Follow up Appointment(s)/Referral(s): intake, intake [Other] - 05/25/20 2:30 pm () [facility]Outside] - 05/25/20 5:00 pm ([facility]) Gavin Mcdonald MD [Primary Care Provider] - 1-2 days Patient Instructions/Handouts: How to Stop Smoking (DC), Depression (DC) Activity/Diet/Wound Care/Special Instructions: Activity and diet as tolerated. Avoid the use of street drugs and alcohol. Take all medications as prescribed. When you are in need of refills on your medications please contact your medical provider and/or outpatient psychiatrist to have this done. Please go to scheduled outpatient appointment for aftercare treatment. If symptoms return or become worse, call the crisis line at and/or go to the nearest emergency room for evaluation. Discharge Disposition: HOME SELF-CARE
== END 2020-05-25 10:07 | disposition home or self-care (01) | DRG 885 ==
LOC: EC 19:40 → 3MHU 05-22 16:03
PROVIDERS: ADMIT Psychiatry & Neurology Psychiatry; ATTEND Psychiatry & Neurology Psychiatry
DX: F33.2 Major depressive disorder, recurrent severe without psychotic features (principal); R45.851 Suicidal ideations; K70.10 Alcoholic hepatitis without ascites; F17.210 Nicotine dependence, cigarettes, uncomplicated; I10 Essential (primary) hypertension; R25.1 Tremor, unspecified; F10.10 Alcohol abuse, uncomplicated; F51.04 Psychophysiologic insomnia; Z20.828 Contact with and (suspected) exposure to other viral communicable diseases; F41.9 Anxiety disorder, unspecified; Z79.899 Other long term (current) drug therapy; Z86.14 Personal history of Methicillin resistant Staphylococcus aureus infection; Z71.41 Alcohol abuse counseling and surveillance of alcoholic; Z71.6 Tobacco abuse counseling; Z91.5 Personal history of self-harm; Z82.49 Family history of ischemic heart disease and other diseases of the circulatory system
CPT/HCPCS: 36415; 80053; 80061; 80306; 80329; 81001; 81025; 82075; 83036; 83520; 84443; 85025; 87635; 99285

== ENCOUNTER 2020-08-09 14:51 | Emergency (ER) | payer BC ==
[2020-08-09 14:57] VITALS: BP 135/85; PULSE 91; RESP 16; TEMP 98
[2020-08-09] MEDS ORDERED: LORazepam 1 MG TAB PO STA ×2 (15:59→18:59)
--- NOTE | 2020-08-09 18:10 | ED ---
Psych HPI - General Source: patient Mode of arrival: wheelchair <Vivian Cano - Last Filed: 08/09/20 18:10> <Amandeep Winn - Last Filed: 08/09/20 19:00> - General Chief Complaint: Psychiatric Symptoms Stated Complaint: Mental Health Time Seen by Provider: 08/09/20 15:12 - History of Present Illness Initial Comments: 45yo female presenting for ETOH intoxication. pt states she has issues with drinking. pt states she has no suicidal or homicidal ideations. she states she came here to expedite the process of rehabilitation and has a place at [facility] tomorrow for intake.Patient has no additional complaints. states she drank vodka and wine today. (Vivian Cano) - Related Data Previous Rx's Medication Instructions Recorded Desvenlafaxine [Pristiq ER] 100 mg PO DAILY 30 Days tab 05/25/20 Mirtazapine [Remeron] 15 mg PO HS 30 Days tab 05/25/20 Naltrexone HCl [Revia] 50 mg PO HS 30 Days tab 05/25/20 Nicotine 21Mg/24Hr Patch [Habitrol] 1 patch TRANSDERM DAILY 30 Days 05/25/20 patch lisinopriL 20 mg PO DAILY 30 Days tab 05/25/20 Allergies Allergy/AdvReac Type Severity Reaction Status Date / Time No Known Allergies Allergy Verified 08/09/20 16:01 Review of Systems ROS Other: All systems not noted in ROS Statement are negative. <Vivian Cano - Last Filed: 08/09/20 18:10> ROS Other: All systems not noted in ROS Statement are negative. <Amandeep Winn - Last Filed: 08/09/20 19:00> ROS Statement: Those systems with pertinent positive or pertinent negative responses have been documented in the HPI. Past Medical History Past Medical History: Hypertension Additional Past Medical History / Comment(s): Depression History of Any Multi-Drug Resistant Organisms: MRSA Date of last positivie culture/infection: 08/04/2017 MDRO Source:: nose Past Surgical History: No Surgical Hx Reported Past Psychological History: Anxiety, Depression Smoking Status: Never smoker Past Alcohol Use History: Daily, Heavy Past Drug Use History: Marijuana - Past Family History Family Additional Family Medical History / Comment(s): Premature CAD in her uncle maternal side <Vivian Cano - Last Filed: 08/09/20 18:10> General Exam Limitations: no limitations <Vivian Cano - Last Filed: 08/09/20 18:10> - General Exam Comments Initial Comments: General: The patient is awake and alert, in no distress, smells of alcohol Eye: Pupils are equal, round and reactive to light, extra-ocular movements are intact. No nystagmus. There is normal conjunctiva bilaterally. No signs of icterus. Ears, nose, mouth and throat: There are moist mucous membranes and no oral lesions. Neck: The neck is supple, there is no tenderness or JVD. Cardiovascular: There is a regular rate and rhythm. No murmur, rub or gallop is appreciated. Respiratory: Lungs are clear to auscultation, respirations are non-labored, breath sounds are equal. No wheezes, stridor, rales, or rhonchi. Gastrointestinal: Soft, non-distended, non-tender abdomen without masses or organomegaly noted. There is no rebound or guarding present. Musculoskeletal: Normal ROM, no tenderness. Strength 5/5. Sensation intact. Radial pulses equal bilaterally 2+. Neurological: A&O x 3. CN II-XII intact grossly, There are no obvious motor or sensory deficits. Coordination appears grossly intact. Speech is normal. Skin: Skin is warm and dry and no rashes or lesions are noted. Psychiatric: Cooperative (Layla Canoshana Martinez) Course Vital Signs 08/09/20 14:54 Temperature 98.0 F Pulse Rate 91 Respiratory 16 Rate Blood Pressure 135/85 O2 Sat by Pulse 99 Oximetry Medical Decision Making <Vivian Cano - Last Filed: 08/09/20 18:10> <Amandeep Winn - Last Filed: 08/09/20 19:00> - Medical Decision Making 45yo presenting for ETOH intoxication. pending placement in rehabilitation. no suicidal or homicidal ideations. pt placed of rehabilitation requesting covid swab. family left (Vivian Cano) Patient requesting discharge home. Patient denies any suicidal or homicidal thoughts. No petition. Patient states her family is coming to pick her up and take her to rehab facility. Patient does request Ativan secondary to mild tremor. (Amandeep Winn) - Lab Data Lab Results 08/09/20 Range/Units 16:46 Coronavirus (PCR) Not Detected (Not Detectd) Disposition <Vivian Cano - Last Filed: 08/09/20 18:10> Is patient prescribed a controlled substance at d/c from ED?: No Time of Disposition: 18:58 <Amandeep Winn - Last Filed: 08/09/20 19:00> Clinical Impression: Alcohol use disorder Disposition: HOME SELF-CARE Condition: Stable Instructions (If sedation given, give patient instructions): Abuse of Alcohol (ED), Alcohol Intoxication (ED) Additional Instructions: Discharge to family member. Please head directly to rehab facility as planned. Return for thoughts of self-harm, worsening symptoms or other concerns. No driving today. Referrals: Jeremy Mcdonald MD [Primary Care Provider] - 1-2 days
== END 2020-08-09 19:21 | disposition home or self-care (01) ==
LOC: EC 14:51
DX: F10.10 Alcohol abuse, uncomplicated (principal); I10 Essential (primary) hypertension; Z20.828 Contact with and (suspected) exposure to other viral communicable diseases
CPT/HCPCS: 82075; 87635; 99284

== ENCOUNTER 2021-04-28 19:43 | Observation (INO) | payer BC ==
--- NOTE | 2021-04-28 20:17 | ED ---
Psych HPI - General Chief Complaint: Psychiatric Symptoms Stated Complaint: Mental Health Time Seen by Provider: 04/28/21 19:49 Source: patient, EMS, RN notes reviewed Mode of arrival: EMS - History of Present Illness Initial Comments: 45-year-old female who denies any history of depression or alcoholism who states she was fired from her job today to help for 6 months and did drink a half pint of vodka. Last drink was about 2 hours prior to arrival. She apparently did voice her she wanted to kill herself she at this time denies any suicidal thought or ideation she states she would never hurt herself. She denies any other street drugs. Patient did say that her blood pressure was markedly elevated when it was evaluated. Denies any fevers chills nausea vomiting sweats or other symptoms. MD Complaint: other - Related Data Previous Rx's Medication Instructions Recorded Desvenlafaxine [Pristiq ER] 100 mg PO DAILY 30 Days tab 05/25/20 Mirtazapine [Remeron] 15 mg PO HS 30 Days tab 05/25/20 Naltrexone HCl [Revia] 50 mg PO HS 30 Days tab 05/25/20 Nicotine 21Mg/24Hr Patch [Habitrol] 1 patch TRANSDERM DAILY 30 Days 05/25/20 patch lisinopriL 20 mg PO DAILY 30 Days tab 05/25/20 Allergies Allergy/AdvReac Type Severity Reaction Status Date / Time No Known Allergies Allergy Verified 04/28/21 19:54 Review of Systems ROS Statement: Those systems with pertinent positive or pertinent negative responses have been documented in the HPI. ROS Other: All systems not noted in ROS Statement are negative. Past Medical History Past Medical History: Hypertension Additional Past Medical History / Comment(s): Depression History of Any Multi-Drug Resistant Organisms: MRSA Date of last positivie culture/infection: 08/04/2017 MDRO Source:: nose Past Surgical History: No Surgical Hx Reported Past Psychological History: Anxiety, Depression Smoking Status: Never smoker Past Alcohol Use History: Daily, Heavy Past Drug Use History: Marijuana - Past Family History Family Additional Family Medical History / Comment(s): Premature CAD in her uncle maternal side General Exam - General Exam Comments Initial Comments: This is a well-developed well-nourished awake alert oriented 3 female Limitations: no limitations General appearance: alert, in no apparent distress Head exam: Present: atraumatic, normocephalic, normal inspection Eye exam: Present: normal appearance, PERRL, EOMI. Absent: scleral icterus, conjunctival injection, periorbital swelling ENT exam: Present: normal exam, mucous membranes moist Neck exam: Present: normal inspection. Absent: tenderness, meningismus, lymphadenopathy Respiratory exam: Present: normal lung sounds bilaterally. Absent: respiratory distress, wheezes, rales, rhonchi, stridor Cardiovascular Exam: Present: regular rate, normal rhythm, normal heart sounds. Absent: systolic murmur, diastolic murmur, rubs, gallop, clicks GI/Abdominal exam: Present: soft, normal bowel sounds. Absent: distended, tenderness, guarding, rebound, rigid Extremities exam: Present: normal inspection, full ROM, normal capillary refill. Absent: tenderness, pedal edema, joint swelling, calf tenderness Back exam: Present: normal inspection Neurological exam: Present: alert, oriented X3, CN II-XII intact Psychiatric exam: Present: normal affect, normal mood Skin exam: Present: warm, dry, intact, normal color. Absent: rash Course Vital Signs 04/28/21 19:47 Temperature 98.2 F Pulse Rate 83 Respiratory 18 Rate Blood Pressure 137/88 O2 Sat by Pulse 98 Oximetry - Reevaluation(s) Reevaluation #1: 04/28/21 20:59 The patient's care is endorsed to Dr. Sheppard at our shift change. Serum alcohol and platelets are pending. Medical Decision Making - Medical Decision Making She does demonstrate evidence of alcohol intoxication her is here and will follow petition. Patient will be patient will be admitted to Dr. Holder - Lab Data Result diagrams: 04/28/21 20:26 04/28/21 21:06 Lab Results 04/28/21 04/28/21 04/28/21 Range/Units 19:58 19:58 20:26 WBC 10.2 (3.8-10.6) k/uL RBC 4.69 (3.80-5.40) m/uL Hgb 15.2 (11.4-16.0) gm/dL Hct 45.5 (34.0-46.0) % MCV 96.9 (80.0-100.0) fL MCH 32.5 (25.0-35.0) pg MCHC 33.5 (31.0-37.0) g/dL RDW 13.1 (11.5-15.5) % Plt Count 314 (150-450) k/uL MPV 6.9 Neutrophils % 51 % Lymphocytes % 36 % Monocytes % 7 % Eosinophils % 3 % Basophils % 1 % Neutrophils # 5.2 (1.3-7.7) k/uL Lymphocytes # 3.6 (1.0-4.8) k/uL Monocytes # 0.7 (0-1.0) k/uL Eosinophils # 0.3 (0-0.7) k/uL Basophils # 0.1 (0-0.2) k/uL Sodium (137-145) mmol/L Potassium (3.5-5.1) mmol/L Chloride (98-107) mmol/L Carbon Dioxide (22-30) mmol/L Anion Gap mmol/L BUN (7-17) mg/dL Creatinine (0.52-1.04) mg/dL Est GFR (CKD-EPI)AfAm (>60 ml/min/1.73 sqM) Est GFR (CKD-EPI)NonAf (>60 ml/min/1.73 sqM) Glucose (74-99) mg/dL Calcium (8.4-10.2) mg/dL Magnesium (1.6-2.3) mg/dL Total Bilirubin (0.2-1.3) mg/dL AST (14-36) U/L ALT (4-34) U/L Alkaline Phosphatase (38-126) U/L Total Protein (6.3-8.2) g/dL Albumin (3.5-5.0) g/dL Lipase (23-300) U/L Urine HCG, Qual Not Detected (Not Detectd) Urine Opiates Screen Not Detected (NotDetected) Ur Oxycodone Screen Not Detected (NotDetected) Urine Methadone Screen Not Detected (NotDetected) Ur Propoxyphene Screen Not Detected (NotDetected) Ur Barbiturates Screen Not Detected (NotDetected) U Tricyclic Antidepress Not Detected (NotDetected) Ur Phencyclidine Scrn Not Detected (NotDetected) Ur Amphetamines Screen Not Detected (NotDetected) U Methamphetamines Scrn Not Detected (NotDetected) U Benzodiazepines Scrn Detected H (NotDetected) Urine Cocaine Screen Not Detected (NotDetected) U Marijuana (THC) Screen Not Detected (NotDetected) Serum Alcohol mg/dL 04/28/21 04/28/21 Range/Units 20:26 21:06 WBC (3.8-10.6) k/uL RBC (3.80-5.40) m/uL Hgb (11.4-16.0) gm/dL Hct (34.0-46.0) % MCV (80.0-100.0) fL MCH (25.0-35.0) pg MCHC (31.0-37.0) g/dL RDW (11.5-15.5) % Plt Count (150-450) k/uL MPV Neutrophils % % Lymphocytes % % Monocytes % % Eosinophils % % Basophils % % Neutrophils # (1.3-7.7) k/uL Lymphocytes # (1.0-4.8) k/uL Monocytes # (0-1.0) k/uL Eosinophils # (0-0.7) k/uL Basophils # (0-0.2) k/uL Sodium 146 H (137-145) mmol/L Potassium 4.3 (3.5-5.1) mmol/L Chloride 113 H (98-107) mmol/L Carbon Dioxide 25 (22-30) mmol/L Anion Gap 8 mmol/L BUN 20 H (7-17) mg/dL Creatinine 0.75 (0.52-1.04) mg/dL Est GFR (CKD-EPI)AfAm >90 (>60 ml/min/1.73 sqM) Est GFR (CKD-EPI)NonAf >90 (>60 ml/min/1.73 sqM) Glucose 119 H (74-99) mg/dL Calcium 8.9 (8.4-10.2) mg/dL Magnesium 2.2 (1.6-2.3) mg/dL Total Bilirubin 0.2 (0.2-1.3) mg/dL AST 41 H (14-36) U/L ALT 37 H (4-34) U/L Alkaline Phosphatase 78 (38-126) U/L Total Protein 6.2 L (6.3-8.2) g/dL Albumin 3.6 (3.5-5.0) g/dL Lipase 68 (23-300) U/L Urine HCG, Qual (Not Detectd) Urine Opiates Screen (NotDetected) Ur Oxycodone Screen (NotDetected) Urine Methadone Screen (NotDetected) Ur Propoxyphene Screen (NotDetected) Ur Barbiturates Screen (NotDetected) U Tricyclic Antidepress (NotDetected) Ur Phencyclidine Scrn (NotDetected) Ur Amphetamines Screen (NotDetected) U Methamphetamines Scrn (NotDetected) U Benzodiazepines Scrn (NotDetected) Urine Cocaine Screen (NotDetected) U Marijuana (THC) Screen (NotDetected) Serum Alcohol 314 H* mg/dL Disposition Clinical Impression: Alcohol intoxication, Suicidal ideation Disposition: ADMITTED IP TO THIS [facility] Condition: Fair Referrals: Gavin Mcdonald MD [Primary Care Provider] - 1-2 days
[2021-04-28 20:41] LABS: Amphetamine Screen,Urine Not Detected (NotDetected); Barbiturate Screen,Urine Not Detected (NotDetected); Benzodiazepines Screen,Urine Detected (NotDetected); Cocaine Screen,Urine Not Detected (NotDetected); Methadone Screen, Urine Not Detected (NotDetected); Opiate Screen,Urine Not Detected (NotDetected); Oxycodone Screen, Urine Not Detected (NotDetected); Phencyclidine Screen,Urine Not Detected (NotDetected); Tricyclic Antidepressant,Urine Not Detected (NotDetected); Urn Cannabinoid Scrn Not Detected (NotDetected)
[2021-04-28 20:45] LABS: Basophils # (A) 0.1 k/uL (0-0.2); Basophils % (A) 1 %; Eosinophils # (A) 0.3 k/uL (0-0.7); Eosinophils % (A) 3 %; HCT 45.5 % (34.0-46.0); HGB 15.2 gm/dL (11.4-16.0); Lymphocytes # (A) 3.6 k/uL (1.0-4.8); Lymphocytes % (A) 36 %; MCH 32.5 pg (25.0-35.0); MCHC 33.5 g/dL (31.0-37.0); MCV 96.9 fL (80.0-100.0); Mean Platelet Volume 6.9; Monocytes # (A) 0.7 k/uL (0-1.0); Monocytes % (A) 7 %; Neutrophils # (A) 5.2 k/uL (1.3-7.7); Neutrophils % (A) 51 %; Platelet Count 314 k/uL (150-450); RBC 4.69 m/uL (3.80-5.40); RDW 13.1 % (11.5-15.5); WBC 10.2 k/uL (3.8-10.6)
[2021-04-28 21:01] LABS: Magnesium 2.2 mg/dL (1.6-2.3)
[2021-04-28 21:27] LABS: ALT 37 U/L (4-34); AST 41 U/L (14-36); African American GFR (CKD) >90 (>60 ml/min/1.73 sqM); Albumin 3.6 g/dL (3.5-5.0); Alkaline Phosphatase 78 U/L (38-126); Anion Gap 8 mmol/L; Blood Urea Nitrogen 20 mg/dL (7-17); Calcium 8.9 mg/dL (8.4-10.2); Carbon Dioxide 25 mmol/L (22-30); Chloride 113 mmol/L (98-107); Glucose 119 mg/dL (74-99); Lipase 68 U/L (23-300); Non-African American GFR(CKD) >90 (>60 ml/min/1.73 sqM); Potassium 4.3 mmol/L (3.5-5.1); Sodium 146 mmol/L (137-145); Total Bilirubin 0.2 mg/dL (0.2-1.3); Total Protein 6.2 g/dL (6.3-8.2)
[2021-04-28] MEDS ORDERED: NALOXONE 0.4 MG/ML 1 ML VIAL IV PRN (21:49)
[2021-04-28] MEDS ORDERED: THIAMINE 100 MG/ML 2 ML VIAL IM STA (21:51)
[2021-04-28] MEDS ORDERED: LORazepam 2 MG/ML INJ IV PRN ×2 (21:51)
[2021-04-29] MEDS ORDERED: ONDANSETRON 4 MG/2 ML VIAL IVP PRN (02:04)
--- NOTE | 2021-04-29 02:21 | P.HPIM ---
History of Present Illness H&P Date: 04/28/21 Chief Complaint: Suicidal ideation 45-year-old female with hypertension Patient comes in feeling depressed and intoxicated with alcohol. petitioned his for psych evaluation. She reported that the patient was found attempting to hang herself and a suicidal attempt. Patient doesn't deny above claims, she was fired from her job today she felt hopeless and started having suicidal ideation she started drinking alcohol she denies on regular basis. She is feeling hopeless and helpless at this time and seeking however help. She currently denies any chest pain or trouble breathing denies any fevers or chills denies any upper respiratory infection symptoms She is complaining of nausea denies any abdominal pain or diarrhea or any urinary changes Blood work in the ED showed alcohol intoxication, overall blood work was unremarkable however slightly elevated liver enzymes were noticed urine drug screen was positive for benzos Review of Systems Pertinent positives as noted in HPI. All other systems were reviewed and are negative Past Medical History Past Medical History: Hypertension Additional Past Medical History / Comment(s): Depression History of Any Multi-Drug Resistant Organisms: MRSA Date of last positivie culture/infection: 08/04/2017 MDRO Source:: nose Past Surgical History: No Surgical Hx Reported Past Psychological History: Anxiety, Depression Smoking Status: Never smoker Past Alcohol Use History: Daily, Heavy Past Drug Use History: Marijuana - Past Family History Family Additional Family Medical History / Comment(s): Premature CAD in her uncle maternal side Medications and Allergies Home Medications Medication Instructions Recorded Confirmed Type Naltrexone HCl [Revia] 50 mg PO HS 30 Days tab 05/25/20 04/28/21 Rx lisinopriL 20 mg PO DAILY 30 Days tab 05/25/20 04/28/21 Rx Citalopram Hydrobromide [CeleXA] 20 mg PO DAILY 04/28/21 04/28/21 History Allergies Allergy/AdvReac Type Severity Reaction Status Date / Time No Known Allergies Allergy Verified 04/28/21 22:06 Physical Exam Vitals: Vital Signs Temp Pulse Resp BP Pulse Ox 04/29/21 02:08 98.3 F 84 18 122/71 96 04/29/21 00:18 18 04/28/21 22:51 18 04/28/21 22:44 75 18 129/89 95 04/28/21 19:47 98.2 F 83 18 137/88 98 Intake and Output 04/28/21 04/28/21 04/29/21 14:59 22:59 06:59 Other: Weight 81.647 kg Constitutional: No acute distress, conversant, pleasant Eyes: Anicteric sclerae, moist conjunctiva, Pupils equal round reactive to light ENMT: NC/AT Oropharynx clear, no erythema, or exudates Neck: Supple, FROM, no masses, or JVD No carotid bruits No thyromegaly Lungs: Clear to auscultation Clear to percussion Normal respiratory effort, no accessory muscle use Cardiovascular: Heart regular in rate and rhythm, No murmurs, gallops, or rubs No peripheral edema Abdominal: Soft Nontender, no guarding, rebound or rigidity Abdomen moving with respiration Normoactive bowel sounds No hepatomegaly, No splenomegaly No palpable mass No abdominal wall hernia noted Skin: Normal temperature, tone, texture, turgor No induration No subcutaneous nodules No rash, lesions No ulcers Extremities: No digital cyanosis No clubbing Pedal pulses intact and symmetrical Radial pulses intact and symmetrical No calf tenderness Psychiatric: Alert and oriented to person, place and time Flat affect Neuro Muscles Strength 5/5 in all 4 extremities Sensation to light touch grossly present throughout Cranial nerves II-XII grossly intact No focal sensory deficits Lymphatics: no palpable cervical or supraclavicular , or inguinal lymph nodes Results CBC & Chem 7: 04/28/21 20:26 04/28/21 21:06 Labs: Abnormal Lab Results - Last 24 Hours (Table) 04/28/21 04/28/21 04/28/21 Range/Units 19:58 20:26 21:06 Sodium 146 H (137-145) mmol/L Chloride 113 H (98-107) mmol/L BUN 20 H (7-17) mg/dL Glucose 119 H (74-99) mg/dL AST 41 H (14-36) U/L ALT 37 H (4-34) U/L Total Protein 6.2 L (6.3-8.2) g/dL U Benzodiazepines Scrn Detected H (NotDetected) Serum Alcohol 314 H* mg/dL Assessment and Plan Assessment: Alcohol intoxication and delirium improving Monitor for alcohol withdrawal syndrome Depressed emotions with suicidal ideation Hypertension controlled Mild transaminitis Plan Aggressive IV fluid hydration Suicide precautions Psych eval Benzos per CIWA scale Thiamine Monitor liver enzymes DVT prophylaxis mechanical Stated length of stay less than 2 midnights Anticipated discharge pending psych eval
[2021-04-29] MEDS: SODIUM CHLORIDE 0.9% 1,000 ML IV SCH ×2 (04:48→10:53)
[2021-04-29] MEDS: NICOTINE 14MG/24HR PATCH TRANSDERM SCH (08:46)
[2021-04-29] MEDS: CITALOPRAM HYDROBROMIDE 20 MG TAB PO SCH (08:49)
[2021-04-29] MEDS: lisinopriL 20 MG TAB PO SCH (08:49)
[2021-04-29] MEDS: THIAMINE 100 MG TAB PO SCH ×2 (08:49→17:48)
[2021-04-29] MEDS: ACETAMINOPHEN TAB 325 MG TAB PO PRN (08:59)
--- NOTE | 2021-04-29 10:55 | P.PN ---
Subjective Progress Note Date: 04/29/21 Pt reports improvement in mood. Denies SI. Reports feeling sober now. Has headache, but otherwise no complaints. Objective - Vital Signs Vital signs: Vital Signs Temp 98.3 F 04/29/21 09:25 Pulse 63 04/29/21 09:25 Resp 18 04/29/21 09:25 BP 156/92 04/29/21 09:25 Pulse Ox 95 04/29/21 09:25 Intake & Output 04/28/21 04/29/21 04/29/21 18:59 06:59 18:59 Weight 81.647 kg 81.647 kg - Exam Gen: awake, alert HEENT: normocephalic, atraumatic, good hearing acuity, moist mucous membranes Resp: good air exchange, breathing comfortably with no accessory muscle use CVS: good distal perfusion x 4, GI: soft, NTTP, ND : no SPT, no CVAT, webb catheter not present MSK: no pitting edema, no clubbing Neuro: non-focal, moving all extremities Psych: cooperative, euthymic mood - Labs CBC & Chem 7: 04/28/21 20:26 04/28/21 21:06 Labs: Abnormal Lab Results - Last 24 Hours (Table) 04/28/21 04/28/21 04/28/21 Range/Units 19:58 20:26 21:06 Sodium 146 H (137-145) mmol/L Chloride 113 H (98-107) mmol/L BUN 20 H (7-17) mg/dL Glucose 119 H (74-99) mg/dL AST 41 H (14-36) U/L ALT 37 H (4-34) U/L Total Protein 6.2 L (6.3-8.2) g/dL U Benzodiazepines Scrn Detected H (NotDetected) Serum Alcohol 314 H* mg/dL Assessment and Plan Assessment: Alcohol intoxication and delirium improving Monitor for alcohol withdrawal syndrome Depressed emotions with suicidal ideation Hypertension controlled Mild transaminitis Plan Aggressive IV fluid hydration Suicide precautions Psych eval Benzos per CIWA scale Thiamine Monitor liver enzymes DVT prophylaxis mechanical Stated length of stay less than 2 midnights Anticipated discharge pending psych eval
[2021-04-29] MEDS: LORazepam 2 MG/ML INJ IV PRN (16:14)
[2021-04-29 21:04] VITALS: RESP 16
[2021-04-30] MEDS: ACETAMINOPHEN TAB 325 MG TAB PO PRN (00:04)
[2021-04-30] MEDS: SODIUM CHLORIDE 0.9% 1,000 ML IV SCH ×4 (02:42→12:21)
[2021-04-30] MEDS: LORazepam 2 MG/ML INJ IV PRN ×2 (05:05→12:34)
[2021-04-30 05:13] VITALS: TEMP 98.3
[2021-04-30] MEDS: CITALOPRAM HYDROBROMIDE 20 MG TAB PO SCH (07:35)
[2021-04-30] MEDS: lisinopriL 20 MG TAB PO SCH (07:35)
[2021-04-30] MEDS: THIAMINE 100 MG TAB PO SCH (07:35)
[2021-04-30] MEDS: NICOTINE 14MG/24HR PATCH TRANSDERM SCH ×2 (07:35)
[2021-04-30] MEDS ORDERED: amLODIPine 5 MG TAB PO SCH (09:15)
[2021-04-30 11:54] VITALS: BP 174/88; PULSE 63
--- NOTE | 2021-04-30 13:44 | P.CN ---
Psychiatric Consult - . Consult date: 04/30/21 Consult:: 04/30/21 13:44 IDENTIFYING DATA: This patient is a , recently unemployed, 45-year-old female with significant history of alcohol use disorder, was brought into the emergency department for decided ideation the context of heavy alcohol use. HISTORY OF PRESENT ILLNESS: The patient presented to the hospital on 04/28/2021, chief complaint of suicidal ideation in the context of heavy alcohol use. The patient reports numerous acute stressors including the recent firing from her job at [employer]. On top of this, the patient also reports that her Bryan recently broke his leg and that finances have been difficult. She reports numerous stressors to her and her family. In regards to depressive symptoms, the patient does report that she was feeling suicidal in the context of heavy alcohol use. The patient reports that she was drinking significant amount of vodka (approximately a fifth) prior to her suicidal statements. The patient reports that she was in the garage and verbalized that she "might as well hang myself." She denies any suicide letter or tying of any noose. Upon evaluation on the medical floor, the patient is currently denying any suicidal or homicidal ideation, intention, and/or plan. She is denying any hopelessness or helplessness. She expresses a strong desire to live for herself and for her family. The patient has twin children whom she identifies as reasons to live. The patient has been inconsistent with her outpatient medications and has not been able to see her outpatient mental health provider at [facility] recently. The patient was transitioned from Paxil to Celexa since she was last admitted onto our psychiatric unit almost a year ago. During that last admission, the patient was discharged to rehabilitation. Currently, the patient is not interested in i npatient rehab as she expresses a strong desire to fix the acute stressors including her recent unemployment immediately. This provider spoke with the patient's over the phone with permission granted by the patient. The patient's does express concern for the patient but does acknowledge that she would be better returning home than being admitted to a psychiatric unit. He does not wish to petition the patient at this time. PAST PSYCHIATRIC HISTORY: Patient has a history of alcohol use disorder, depression, and anxiety. The patient has had previous trials of Pristiq, Remeron, and naltrexone and is now currently on a regimen of Celexa 20 mg daily. The patient was admitted to our psychiatric unit in May 2020 for 3 days. The patient is currently open with [facility]. She has attempted suicide once prior in 2008 by overdose. PAST MEDICAL HISTORY: Past Medical History: Hypertension Additional Past Medical History / Comment(s): Depression History of Any Multi-Drug Resistant Organisms: MRSA Date of last positivie culture/infection: 08/04/2017 MDRO Source:: nose Past Surgical History: No Surgical Hx Reported Past Psychological History: Anxiety, Depression Smoking Status: Never smoker Past Alcohol Use History: Daily, Heavy Past Drug Use History: Marijuana ALLERGIES: NO KNOWN DRUG ALLERGIES. CHEMICAL DEPENDENCY HISTORY: Patient reports that she has been drinking most days of the week, approximately 2 pints of vodka per day. She has been to rehabilitation twice before. She has been previously drinking up to a fifth of liquor per day. FAMILY PSYCHIATRIC/SUBSTANCE USE HISTORY: The patient reports that 2 of her brothers and both her parents were alcoholics. SOCIAL HISTORY: Patient was born and raised in [place]. She was previously working with [employer] but was recently fired. She has been for 13 years and is on her second marriage with her Bryan. She has 11-year-old twins named Ranjith Cummings. There was a CPS case open but to her heavy alcohol use in the past. Both patient and report that the patient has significant family support in the area. MENTAL STATUS EXAM: General Appearance: Patient appears to be stated age is alert, pleasant, and cooperative. Patient appears to have fair hygiene and grooming wearing hospital gown with fair eye contact. Behavior: Patient is calmly lying in bed without any agitated behavior. Appropriately tearful. Speech: Patient's speech is fluent and nonpressured. Mood/Affect: Patient reports their mood is "feeling better", affect is congruent, euthymic, appropriate tearful. Suicidality/Homicidality: The patient is currently denying any suicidal or homicidal ideation, intention, and/or plan. Perceptions: Patient denies any visual hallucinations and denies any auditory hallucinations Though content/process: There is no evidence of any delusional thought content and thought process is linear and goal-directed. Memory and concentration: AOX3, grossly intact for the purposes of this session. Can spell "WORLD" backwards Judgment and insight: Fair Vital Signs Temp 98.3 F 04/30/21 11:37 Pulse 63 04/30/21 11:37 Resp 16 04/30/21 11:37 BP 174/88 04/30/21 11:37 Pulse Ox 95 04/30/21 11:37 Intake & Output 04/29/21 04/30/21 04/30/21 18:59 06:59 18:59 Intake Total 2740 1560 Balance 2740 1560 Weight 81.647 kg Intake: Intake, IV Titration 1560 1560 Amount Sodium Chloride 0.9% 1, 1560 1560 000 ml @ 130 mls/hr IV . [id number] [facility] Rx#:[id number] Oral 1180 Other: # Voids 3 3 Laboratory Results WBC 10.2 k/uL (3.8-10.6) 04/28/21 20: RBC 4.69 m/uL (3.80-5.40) 04/28/21 20: Hgb 15.2 gm/dL (11.4-16.0) 04/28/21 20: Hct 45.5 % (34.0-46.0) 04/28/21 20: MCV 96.9 fL (80.0-100.0) 04/28/21 20: MCH 32.5 pg (25.0-35.0) 04/28/21 20: MCHC 33.5 g/dL (31.0-37.0) 04/28/21 20: RDW 13.1 % (11.5-15.5) 04/28/21 20: Plt Count 314 k/uL (150-450) 04/28/21 20: MPV 6.9 04/28/21 20: Neutrophils % 51 % 04/28/21 20: Lymphocytes % 36 % 04/28/21 20: Monocytes % 7 % 04/28/21 20: Eosinophils % 3 % 04/28/21 20: Basophils % 1 % 04/28/21 20: Neutrophils # 5.2 k/uL (1.3-7.7) 04/28/21 20: Lymphocytes # 3.6 k/uL (1.0-4.8) 04/28/21 20: Monocytes # 0.7 k/uL (0-1.0) 04/28/21 20:26 Eosinophils # 0.3 k/uL (0-0.7) 04/28/21 20:26 Basophils # 0.1 k/uL (0-0.2) 04/28/21 20:26 Sodium 146 mmol/L (137-145) H 04/28/21 21:06 Potassium 4.3 mmol/L (3.5-5.1) 04/28/21 21:06 Chloride 113 mmol/L (98-107) H 04/28/21 21:06 Carbon Dioxide 25 mmol/L (22-30) 04/28/21 21:06 Anion Gap 8 mmol/L 04/28/21 21:06 BUN 20 mg/dL (7-17) H 04/28/21 21:06 Creatinine 0.75 mg/dL (0.52-1.04) 04/28/21 21:06 Est GFR (CKD-EPI)AfAm >90 (>60 ml/min/1.73 sqM) 04/28/21 21:06 Est GFR (CKD-EPI)NonAf >90 (>60 ml/min/1.73 sqM) 04/28/21 21:06 Glucose 119 mg/dL (74-99) H 04/28/21 21:06 Calcium 8.9 mg/dL (8.4-10.2) 04/28/21 21:06 Magnesium 2.2 mg/dL (1.6-2.3) 04/28/21 20:26 Total Bilirubin 0.2 mg/dL (0.2-1.3) 04/28/21 21:06 AST 41 U/L (14-36) H 04/28/21 21:06 ALT 37 U/L (4-34) H 04/28/21 21:06 Alkaline Phosphatase 78 U/L (38-126) 04/28/21 21:06 Total Protein 6.2 g/dL (6.3-8.2) L 04/28/21 21:06 Albumin 3.6 g/dL (3.5-5.0) 04/28/21 21:06 Lipase 68 U/L (23-300) 04/28/21 21:06 Urine HCG, Qual Not Detected (Not Detectd) 04/28/21 19:58 Urine Opiates Screen Not Detected (NotDetected) 04/28/21 19:58 Ur Oxycodone Screen Not Detected (NotDetected) 04/28/21 19:58 Urine Methadone Screen Not Detected (NotDetected) 04/28/21 19:58 Ur Propoxyphene Screen Not Detected (NotDetected) 04/28/21 19:58 Ur Barbiturates Screen Not Detected (NotDetected) 04/28/21 19:58 U Tricyclic Antidepress Not Detected (NotDetected) 04/28/21 19:58 Ur Phencyclidine Scrn Not Detected (NotDetected) 04/28/21 19:58 Ur Amphetamines Screen Not Detected (NotDetected) 04/28/21 19:58 U Methamphetamines Scrn Not Detected (NotDetected) 04/28/21 19:58 U Benzodiazepines Scrn Detected (NotDetected) H 04/28/21 19:58 Urine Cocaine Screen Not Detected (NotDetected) 04/28/21 19:58 U Marijuana (THC) Screen Not Detected (NotDetected) 04/28/21 19:58 Serum Alcohol 314 mg/dL H* 04/28/21 20:26 Coronavirus (PCR) Not Detected (Not Detectd) 04/28/21 22:21 IMPRESSIONS: Depressive disorder, secondary to alcohol use Alcohol use disorder PLAN: -At this time patient DOES NOT meet criteria for inpatient psychiatric admission. The patient is currently not endorsing any suicidal or homicidal ideation, intention, and/or plan. Her suicidal ideation occurs in the context of alcohol intoxication. She has protective factors of a supportive family. She also reports a strong duty to her children. Risk factors include her heavy alcohol use and a prior attempt at suicide in 2008. -Would recommend the following medication changes/additions: We will increase the patient's Celexa to 30 mg by mouth daily for depression/anxiety -Discontinue one-to-one process safety specialist. -Motivational interviewing and supportive psychotherapy were given to the patient, in regards to her alcohol use disorder. The patient is in the action stage of change. The patient does acknowledge that alcohol is the primary depressant and factor. She was counseled at length that alcohol can also remove inhibitions placing her at increased risk of harming herself. The patient is considering going back to rehabilitation once finances are arranged. -Recommend outpatient psychiatric follow-up and psychotherapy for substance abuse. -Psychiatry will sign off at this point, please contact with any questions. 04/30/21 13:44
--- NOTE | 2021-04-30 14:56 | P.DS ---
Providers Date of admission: 04/28/21 21:49 Expected date of discharge: 04/30/21 Attending physician: Randy Crawford MD Consults: 04/28/21 21:50 Consult Physician Routine Consulting Provider: Will Mcclain Consult Reason/Comments: Suicidal ideation Do you want consulting provider notified?: Yes, Notify in am Primary care physician: Gavin Rothman [facility] Course: Alcohol intoxication and delirium Patient admitted for ETOH intox and withdrawal supervision and quickly returned to baseline condition after one night of observation and IVF. No withdrawal symptoms noted. Depressed emotions with suicidal ideation Patient was evaluated by psychiatry and did not endorse any further suicidal ideation. Pt was discharged home with recommendation for outpatient psychiatry and with uptitration of celexa. Hypertension Added amlodipine to patients home regimen Assessment: Gen: awake, alert HEENT: normocephalic, atraumatic, good hearing acuity, moist mucous membranes Resp: good air exchange, breathing comfortably with no accessory muscle use CVS: good distal perfusion x 4, GI: soft, NTTP, ND : no SPT, no CVAT, webb catheter not present MSK: no pitting edema, no clubbing Neuro: non-focal, moving all extremities Psych: cooperative, euthymic mood Patient Condition at Discharge: Good Plan - Discharge Summary Discharge Rx Participant: No New Discharge Prescriptions: New Citalopram Hydrobromide [CeleXA] 30 mg PO DAILY #90 tab amLODIPine [Norvasc] 5 mg PO DAILY #30 tab Thiamine [Vitamin B-1] 100 mg PO DAILY #14 tab Continue Naltrexone HCl [Revia] 50 mg PO HS 30 Days tab lisinopriL 20 mg PO DAILY 30 Days tab Discontinued Citalopram Hydrobromide [CeleXA] 20 mg PO DAILY Discharge Medication List Naltrexone HCl [Revia] 50 mg PO HS 30 Days tab 05/25/20 [Rx] lisinopriL 20 mg PO DAILY 30 Days tab 05/25/20 [Rx] Citalopram Hydrobromide [CeleXA] 30 mg PO DAILY #90 tab 04/30/21 [Rx] Thiamine [Vitamin B-1] 100 mg PO DAILY #14 tab 04/30/21 [Rx] amLODIPine [Norvasc] 5 mg PO DAILY #30 tab 04/30/21 [Rx] Follow up Appointment(s)/Referral(s): Gavin Mcdonald MD [Primary Care Provider] - 1-2 days Discharge Disposition: HOME SELF-CARE
[2021-05-01] MEDS ORDERED: CITALOPRAM HYDROBROMIDE 10 MG TAB PO SCH (09:00)
== END 2021-04-30 15:52 | disposition home or self-care (01) ==
LOC: EC 19:43 → 5NMEDONC 21:49 → 3SCARD 23:21 → 5NMEDONC 04-29 06:43
PROVIDERS: ADMIT Internal Medicine; ATTEND Internal Medicine
DX: F10.121 Alcohol abuse with intoxication delirium (principal); F32.9 Major depressive disorder, single episode, unspecified; R45.851 Suicidal ideations; F43.0 Acute stress reaction; I10 Essential (primary) hypertension; F41.9 Anxiety disorder, unspecified; R74.01 Elevation of levels of liver transaminase levels; R51.9 Headache, unspecified; Z20.822 Contact with and (suspected) exposure to COVID-19; Y90.8 Blood alcohol level of 240 mg/100 ml or more; Z56.0 Unemployment, unspecified; Z79.899 Other long term (current) drug therapy; Z86.14 Personal history of Methicillin resistant Staphylococcus aureus infection; Z91.5 Personal history of self-harm; Z81.1 Family history of alcohol abuse and dependence; Z82.49 Family history of ischemic heart disease and other diseases of the circulatory system; Z82.0 Family history of epilepsy and other diseases of the nervous system
CPT/HCPCS: 96376 ×2; 96361 ×3; 82075; 96372; 96374; 99285; 36415; 80053; 83690; 83735; 85025; 81025; 80306; 80320; 87635; G0378 ×5; J2060 ×3; J3411

== ENCOUNTER 2021-05-06 23:59 | Emergency (ER) | payer BC ==
[2021-05-07 00:09] VITALS: BP 105/69; PULSE 80; RESP 24; TEMP 97.7
[2021-05-07] MEDS ORDERED: ONDANSETRON 4 MG/2 ML VIAL IVP STA (01:08)
[2021-05-07] MEDS ORDERED: MAG HYDROX/AL HYDROX/SIMETH 30 ML, HYOSCYAMINE ELIXIR 10 ML, LIDOCAINE VISCOUS 2% 10 ML PO STA ×3 (01:08)
== END 2021-05-07 01:37 | disposition left against medical advice (07) ==
LOC: EC 23:59
DX: Z53.21 Procedure and treatment not carried out due to patient leaving prior to being seen by health care provider (principal)
CPT/HCPCS: 99499; J2405; 99284

== ENCOUNTER 2021-06-08 16:10 | Observation (INO) | payer BC ==
[2021-06-08] MEDS ORDERED: SODIUM CHLORIDE 0.9% 1,000 ML IV ONE (16:41)
[2021-06-08 16:46] LABS: Basophils # (A) 0.1 k/uL (0-0.2); Basophils % (A) 1 %; Eosinophils # (A) 0.2 k/uL (0-0.7); Eosinophils % (A) 1 %; HCT 46.9 % (34.0-46.0); HGB 15.5 gm/dL (11.4-16.0); Lymphocytes # (A) 3.5 k/uL (1.0-4.8); Lymphocytes % (A) 27 %; MCH 31.9 pg (25.0-35.0); MCHC 33.1 g/dL (31.0-37.0); MCV 96.4 fL (80.0-100.0); Mean Platelet Volume 7.6; Monocytes # (A) 0.5 k/uL (0-1.0); Monocytes % (A) 4 %; Neutrophils # (A) 8.5 k/uL (1.3-7.7); Neutrophils % (A) 66 %; Platelet Count 311 k/uL (150-450); RBC 4.86 m/uL (3.80-5.40); RDW 13.4 % (11.5-15.5)
--- NOTE | 2021-06-08 16:53 | XR ---
EXAMINATION TYPE: XR chest 2V DATE OF EXAM: 06/08/2021 COMPARISON: NONE TECHNIQUE: PA and lateral views submitted. HISTORY: Chest pain and shortness of breath FINDINGS: The lungs are clear and there is no pneumothorax, pleural effusion, or focal pneumonia. 12/27/2019 h eart size is normal. No overt failure. IMPRESSION: 1. No acute process.
[2021-06-08 17:02] LABS: Albumin 4.5 g/dL (3.5-5.0); Magnesium 2.1 mg/dL (1.6-2.3); Potassium 3.7 mmol/L (3.5-5.1); Total Bilirubin 0.2 mg/dL (0.2-1.3); Total Protein 7.2 g/dL (6.3-8.2)
[2021-06-08 17:08] LABS: INR 0.9 (<1.2); Partial Thromboplastin Time 23.1 sec (22.0-30.0); Prothrombin Time 10.1 sec (9.0-12.0)
[2021-06-08] MEDS ORDERED: MORPHINE SULFATE 4 MG/ML SYRINGE IVP STA (17:10)
--- NOTE | 2021-06-08 19:20 | CT ---
EXAMINATION TYPE: CT angio thor/abd pel aorta DATE OF EXAM: 06/08/2021 COMPARISON: None HISTORY: Chest pain, shortness of breath, back pain, facial and hand numbness. CT DLP: 1883.1 mGycm. Automated Exposure Control for Dose Reduction was Utilized. CONTRAST: CT scan of the thorax, abdomen and pelvis is performed with IV Contrast, patient injected with 100 mL of Isovue 370. FINDINGS: VASCULAR STRUCTURES: The aorta is normal in course and caliber and there is no evidence for aortic di ssection or aneurysm. Soft and calcific plaque is seen at the aortic bifurcation without significant stenosis. The brachiocephalic artery and left common carotid artery share a common origin. Celiac irvin nk, SMA, renal arteries and THERESA are patent. The pulmonary trunk diameter is 2.5 cm which is within no rmal limits. LUNGS: Minimal bibasilar subsegmental atelectatic changes are noted. There are scattered well-defined 2 to 3 mm nodularities example series 506 image 48 right upper lobe peripherally and inferiorly and series 506 image 51 right upper lobe peripherally posteriorly. There is also ill-defined groundglass like opacities in the right lower lobe in an series 506 image 65. No lung mass seen. No pneumothorax or pleural effusion. Trachea and bronchial tree are patent. Mediastinal or hilar adenopathy appreciat ed. Heart is normal in size and there is no pericardial effusion. LIVER/GB: Decreased attenuation of the hepatic parenchyma in comparison to the spleen could be relate d to bolus phase versus mild hepatic steatosis. The gallbladder is contracted. PANCREAS: No significant abnormality is seen. SPLEEN: No significant abnormality is seen. ADRENALS: No significant abnormality is seen. KIDNEYS: No significant abnormality is seen. BOWEL: No significant abnormality is seen. GENITAL ORGANS: No gross abnormality seen.) Intrauterine device noted. LYMPH NODES: No greater than 1cm abdominal or pelvic lymph nodes are appreciated. OSSEOUS STRUCTURES: No significant abnormality is seen. ADDITIONAL FINDINGS, scattered nodularities in both breasts could be on the basis of normal glandular tissue. Correlation with mammography recommended. IMPRESSION: 1. No aortic aneurysm or dissection. 2. Scattered right upper lobe nodularity and ill-defined groundglass like opacity in the right lower lobe findings are nonspecific, could be infectious or inflammatory or neoplastic. Short-term follow-u p in 3-6 months recommended. 3. No acute abdominal or pelvic process identified.
[2021-06-08] MEDS ORDERED: AZITHROMYCIN 500 MG in SODIUM CHLORIDE 0.9% 250 ML IVPB STA (19:48)
[2021-06-08] MEDS ORDERED: NALOXONE 0.4 MG/ML 1 ML VIAL IV PRN (19:49)
--- NOTE | 2021-06-08 19:49 | ED ---
Chest Pain HPI - General Chief Complaint: Chest Pain Stated Complaint: Chest Pain Time Seen by Provider: 06/08/21 16:28 Source: patient, EMS Mode of arrival: ambulatory Limitations: no limitations - History of Present Illness Initial Comments: Patient is a 46-year-old female with past medical history of hypertension who presents emergency Department with reported chest pain. States that it started just prior to hospital arrival. Started as a pressure over the left side of her chest and radiated into her left arm and jaw. The pain then began going straight through to her back. She reported numbness and tingling in her upper extremities. Denies previous history of heart disease. States she last echo 6 months ago. States that she has a large family history of cardiac disease. States her uncle had a heart attack at 30. She admits to associated shortness of breath, diaphoresis and nausea. EMS was called and they provided her with 4 baby aspirins in the nitro. States that the nitro did not help her pain. It did drop her pressure. She denies concern for . No cough, fevers or chills. No numbness, tingling or weakness into her legs. No other alleviating, precipitating or modifying factors - Related Data Home Medications Medication Instructions Recorded Confirmed Citalopram Hydrobromide [CeleXA] 20 mg PO DAILY 06/08/21 06/08/21 Previous Rx's Medication Instructions Recorded lisinopriL 20 mg PO DAILY 30 Days tab 05/25/20 Allergies Allergy/AdvReac Type Severity Reaction Status Date / Time No Known Allergies Allergy Verified 06/08/21 17:29 Review of Systems ROS Statement: Those systems with pertinent positive or pertinent negative responses have been documented in the HPI. ROS Other: All systems not noted in ROS Statement are negative. EKG Findings - EKG Comments: EKG Findings:: EKG demonstrates normal sinus rhythm with a ventricular rate of 87. GA interval 158. QRS 68. QTC of 478. There is an inverted T-wave in lead [address] depression in lead 2 Past Medical History Past Medical History: Hypertension Additional Past Medical History / Comment(s): Depression History of Any Multi-Drug Resistant Organisms: MRSA Date of last positivie culture/infection: 08/04/2017 MDRO Source:: nose Past Surgical History: No Surgical Hx Reported Past Anesthesia/Blood Transfusion Reactions: No Reported Reaction Past Psychological History: Anxiety, Depression Smoking Status: Current every day smoker Past Alcohol Use History: Daily, Heavy Past Drug Use History: Marijuana - Past Family History Father Family Medical History: CVA/TIA Additional Family Medical History / Comment(s): aneurisym x 2, then a strok 5 years ago Family Additional Family Medical History / Comment(s): Premature CAD in her uncle maternal side Mother Family Medical History: No Reported History General Exam Limitations: no limitations Course Vital Signs 06/08/21 06/08/21 06/08/21 16:15 17:14 20:27 Temperature 98.3 F Pulse Rate 95 80 79 Respiratory 20 20 20 Rate Blood Pressure 96/46 112/71 114/76 O2 Sat by Pulse 96 98 97 Oximetry 06/08/21 21:54 Temperature Pulse Rate 70 Respiratory 18 Rate Blood Pressure 115/78 O2 Sat by Pulse 98 Oximetry Chest Pain MDM - MDM Upon arrival patient was placed into room 1. A thorough history and physical exam was performed. IV had been established by EMS. She was given a liter bolus of normal saline due to her low pressures. She is additionally given 4 mg of morphine for her pain. Laboratory studies are conducted. White count 13. Troponin less than 0.012. Chest x-ray demonstrates no acute process. CT of the patient's aorta is performed due to the numbness and tingling in her hands which demonstrates scattered right upper lobe nodularity an ill-defined groundglass opacities. No aortic dissection. Patient given a dose of azithromycin due to elevated white count and abnormal CT of the chest. I did recommend admission in order to trend her troponins. 12-lead EKG does appear changed from previous. Spoke with Dr. Johnson who agreed to admit the patient. Patient agreed to the treatment plan and was taken to floor in stable condition Disposition Clinical Impression: Chest pain, CAP (community acquired pneumonia) Disposition: ADMITTED IP TO THIS [facility] Condition: Stable Is patient prescribed a controlled substance at d/c from ED?: No Decision to Admit Reason: Admit from EC Decision Date: 06/08/21 Decision Time: 19:49
[2021-06-08] MEDS ORDERED: ASPIRIN 325 MG TAB PO STA (22:02)
--- NOTE | 2021-06-08 22:05 | P.HPIM ---
History of Present Illness H&P Date: 06/08/21 The patient is a 46-year-old female with a PMH of tobacco abuse (one pack per day), hypertension, and anxiety disorder with history of panic attacks who presents to the emergency room with complaints of chest discomfort and shortness of breath. The patient reports that her symptoms started around 2 PM when she was at her neighbor's house helping nonproductive a [place] tree. She reports experiencing substernal heaviness and pressure-like sensation, 8 out of 10 of maximal intensity, nonexertional, without any alleviating or exacerbating features, radiating to the back and throughout her chest, with associated shortness of breath. She denied associated nausea, vomiting, diaphoresis, or di zziness. She subsequently went home and laid down and noticed very little improvement in her symptoms over the next few hours, at which time she became alarmed and decided to come to the emergency room. In route to the hospital, the patient was given nitroglycerin which caused her to become hypotensive and lethargic and subsequently improved several minutes later with some IV fluids. At time of interview, she reports that her pain has improved to a 5 out of 10 but it continues to be pressure-like, although is no longer radiating to the back. The patient denied fever, chills, cough, abdominal pain, diarrhea. In the emergency room, a CT angiography of the aorta revealed scattered right upper lobe nodularities with follow-up in 3-6 months recommended but no dissection or aneurysm noted. EKG revealed normal sinus rhythm at 87 bpm with prolonged QTC at 478 ms as well as inferiorly Q waves and T-wave inversions with biphasic T waves inferiorly, all findings new as compared to prior EKG from [address]/T-wave changes noted as reviewed by me. Chest x-ray was unremarkable. Laboratory evaluation revealed leukocytosis of 13.0, CO2 13, glucose 129, troponin less than 0.012. Review of systems: Pertinent positives and negatives as discussed in HPI, a complete review of systems was performed and all other systems are negative. Physical examination: General: non toxic, no distress, appears at stated age, obese Derm: no unusual rashes/lesions no unusual ecchymoses, warm, dry Head: atraumatic, normocephalic, symmetric Eyes: EOMI, no lid lag, anicteric sclera, pupils equal round reactive to light ENT: Nose and ears atraumatic, no thrush, no pharyngeal erythema Neck: No thyromegaly, no cervical lymphadenopathy, trachea midline, supple Mouth: no lip lesion, mucus membranes moist Cardiovascular: S1S2 reg, no murmur, positive posterior tibial pulse bilateral, no edema, capillary refill less than 2 seconds, no chest wall tenderness on palpation Lungs: CTA bilateral, no rhonchi, no rales , no accessory muscle use Abdominal: soft, nontender to palpation, no guarding, no appreciable organomegaly, normal bowel sounds Ext: no gross muscle atrophy, muscle strength 5 out of 5 in all 4 extremities grossly, no contractures, Neuro: CN II-XI grossly intact, light touch intact all 4 extremities, finger to nose within normal limits, Psych: Alert, oriented, appropriate affect Assessment/plan Chest pain, rule out ACS -Reality consult -Trend troponin -Cardiac monitoring -Strongly advised on importance of cessation from tobacco use Abnormal computed tomography scan -Patient will need repeat scan in 3-6 months as an outpatient -Low suspicion for pneumonia as patient is denying fever or cough Prolonged QTC -Avoid further prolonging agents Leukocytosis -Likely secondary to acute stressor -Monitor for now Hyperglycemia -Check A1c DVT prophylaxis -Heparin subq The patient is admitted with an anticipated less than 2 midnight stay for evaluation of chest pain CODE STATUS: Full Code Discussed with: patient Anticipated discharge date: in am Anticipated discharge place: Home Past Medical History Past Medical History: Hypertension Additional Past Medical History / Comment(s): Depression History of Any Multi-Drug Resistant Organisms: MRSA Date of last positivie culture/infection: 08/04/2017 MDRO Source:: nose Past Surgical History: No Surgical Hx Reported Past Anesthesia/Blood Transfusion Reactions: No Reported Reaction Past Psychological History: Anxiety, Depression Smoking Status: Current every day smoker Past Alcohol Use History: Daily, Heavy Past Drug Use History: Marijuana - Past Family History Father Family Medical History: CVA/TIA Additional Family Medical History / Comment(s): aneurisym x 2, then a strok 5 years ago Family Additional Family Medical History / Comment(s): Premature CAD in her uncle maternal side Medications and Allergies Home Medications Medication Instructions Recorded Confirmed Type lisinopriL 20 mg PO DAILY 30 Days tab 05/25/20 06/08/21 Rx Citalopram Hydrobromide [CeleXA] 20 mg PO DAILY 06/08/21 06/08/21 History Allergies Allergy/AdvReac Type Severity Reaction Status Date / Time No Known Allergies Allergy Verified 06/08/21 17:29 Physical Exam Vitals: Vital Signs Temp Pulse Resp BP Pulse Ox 06/08/21 20:27 79 20 114/76 97 06/08/21 17:14 80 20 112/71 98 06/08/21 16:15 98.3 F 95 20 96/46 96 Intake and Output 06/08/21 06/08/21 06/08/21 06:59 14:59 22:59 Other: Weight 86.183 kg Results CBC & Chem 7: 06/08/21 16:36 06/08/21 16:36 Labs: Abnormal Lab Results - Last 24 Hours (Table) 06/08/21 06/08/21 Range/Units 16:36 16:36 WBC 13.0 H (3.8-10.6) k/uL Hct 46.9 H (34.0-46.0) % Neutrophils # 8.5 H (1.3-7.7) k/uL Chloride 116 H (98-107) mmol/L Carbon Dioxide 13 L (22-30) mmol/L Glucose 129 H (74-99) mg/dL ALT 37 H (4-34) U/L
[2021-06-08] MEDS: HEPARIN SODIUM,PORCINE/PF 5,000 UNIT/0.5 ML SYRINGE SQ SCH (22:58)
[2021-06-09] MEDS: HEPARIN SODIUM,PORCINE/PF 5,000 UNIT/0.5 ML SYRINGE SQ SCH ×2 (08:32→14:57)
[2021-06-09] MEDS ORDERED: CITALOPRAM HYDROBROMIDE 20 MG TAB PO SCH (09:00)
[2021-06-09] MEDS ORDERED: lisinopriL 20 MG TAB PO SCH (09:00)
[2021-06-09] MEDS ORDERED: ASPIRIN 325 MG TAB PO SCH (09:00)
[2021-06-09 09:12] LABS: Basophils # (A) 0.05 X 10*3/uL (0.00-0.10); Basophils % (A) 0.5 %; Eosinophils # (A) 0.27 X 10*3/uL (0.04-0.35); Eosinophils % (A) 2.9 %; HCT 42.3 % (37.2-46.3); HGB 13.5 g/dL (12.0-15.0); Lymphocytes # (A) 2.89 X 10*3/uL (0.90-5.00); Lymphocytes % (A) 30.9 %; MCH 30.9 pg (27.0-32.0); MCHC 31.9 g/dL (32.0-37.0); MCV 96.8 fL (80.0-97.0); Mean Platelet Volume 10.1 fL (9.5-12.2); Monocytes # (A) 0.74 X 10*3/uL (0.20-1.00); Monocytes % (A) 7.9 %; Neutrophils # (A) 5.34 X 10*3/uL (1.80-7.70); Neutrophils % (A) 57.3 %; Platelet Count 224 X 10*3/uL (140-440); RBC 4.37 X 10*6/uL (4.10-5.20); WBC 9.34 X 10*3/uL (4.50-10.00)
[2021-06-09 10:11] LABS: African American GFR (CKD) 126.7 (60.0-200.0); Anion Gap 10.5 mmol/L (4.00-12.00); BUN/Creat Ratio 21.17 Ratio (12.00-20.00); Blood Urea Nitrogen 12.7 mg/dL (9.0-27.0); Calcium 8.8 mg/dL (8.7-10.3); Carbon Dioxide 19.5 mmol/L (21.6-31.8); Non-African American GFR(CKD) 109.3 (60.0-200.0); Potassium 4.1 mmol/L (3.5-5.5)
--- NOTE | 2021-06-09 10:20 | P.CRDCN ---
History of Present Illness History of present illness: HISTORY OF PRESENTING ILLNESS This is a pleasant 46-year-old with past medical history significant for hypertension, alcohol abuse, tobacco abuse and family history of coronary artery disease. She presents with an episode yesterday of severe chest pain associated with feeling short of breath while she was putting up Xmas lights. She admits she does drink heavily and is due to be enrolled in rehab on Friday. She denies any prior similar episodes. She does have a strong family history of numerous people with passive heart attacks. She has not had prior cardiac workup. She was given nitroglycerin in the EMS which did not help at all with her pain however did drop her blood pressure down apparently into the 80s over 40s. She was found to be acidotic on presentation with initial bicarb 13 and mild leukocytosis at 13. Troponins negative 3 and EKG unrevealing. She was given m orphine in the emergency department with gradual improvement in chest pain. Currently today she denies any chest pain or shortness breath and has been able to walk around her room without any difficulty. Repeat blood work shows troponins white blood cell count however repeat bicarb has not been performed. Blood pressures been well controlled. She did have CT thorax performed to rule out dissection which showed no dissection as well as nonspecific right grass ground opacities. She does admit she has been treated for bronchitis over the last 2-3 weeks. REVIEW OF SYSTEMS At the time of my exam: CONSTITUTIONAL: Denies fever or chills. CARDIOVASCULAR: +chest pain, +shortness of breath, no orthopnea, PND or palpitations. RESPIRATORY: Denies cough. GASTROINTESTINAL: Denies abdominal pain, diarrhea, constipation, nausea or vomiting. MUSCULOSKELETAL: Denies myalgias. NEUROLOGIC: Denies numbness, tingling or weakness. ENDOCRINE: Denies fatigue, weight change, polydipsia or polyurina. GENITOURINARY: Denies burning, hematuria or urgency with micturation. HEMATOLOGIC: Denies history of anemia or bleeding. PHYSICAL EXAMINATION Vital signs reviewed. CONSTITUTIONAL: No apparent distress. HEENT: Head is normocephalic. Pupils are equal, round. Sclerae anicteric. Mucous membranes of the mouth are moist. No JVD. No carotid bruit. CHEST EXAMINATION: Lungs are clear to auscultation. No chest wall tenderness is noted on palpation or with deep breathing. HEART EXAMINATION: Regular rate and rhythm. S1, S2 heard. No murmurs, gallops or rub. ABDOMEN: Soft, nontender. Positive bowel sounds. EXTREMITIES: 2+ peripheral pulses, no lower extremity edema and no calf tenderness. NEUROLOGIC EXAMINATION: Patient is awake, alert and oriented x3. ASSESSMENT 1. Atypical chest pain, currently improved troponin is normal 3, acute coronary syndrome has been ruled out 2. Groundglass opacities noted on CAT scan, recent history of bronchitis 3. Tobacco abuse 4. Alcohol abuse 5. Hypertension 6. Family history of coronary artery disease PLAN Patient's chest pain overall appears atypical. She did have recent bronchitis and that may explain the CT findings however recommend repeat in 3-6 months to ensure resolution. Discussed tobacco cessation. Discussed alcohol cessation. She does have a strong family history however current workup unrevealing with normal troponins and no ischemic changes on EKG. We will check 2-D echo and if unrevealing patient may be discharged home with outpatient stress testing. We will also however check repeat bicarb to ensure that this is improved, this may be related to temporary hypotension from the nitroglycerin she was given however ensure resolution. Past Medical History Past Medical History: Hypertension Additional Past Medical History / Comment(s): Depression History of Any Multi-Drug Resistant Organisms: MRSA Date of last positivie culture/infection: 08/04/2017 MDRO Source:: nose Past Surgical History: No Surgical Hx Reported Past Anesthesia/Blood Transfusion Reactions: No Reported Reaction Past Psychological History: Anxiety, Depression Smoking Status: Current every day smoker Past Alcohol Use History: Daily, Heavy Past Drug Use History: Marijuana - Past Family History Father Family Medical History: CVA/TIA Additional Family Medical History / Comment(s): aneurisym x 2, then a strok 5 years ago Mother Family Medical History: No Reported History Family Additional Family Medical History / Comment(s): Premature CAD in her uncle maternal side Medications and Allergies Home Medications Medication Instructions Recorded Confirmed Type lisinopriL 20 mg PO DAILY 30 Days tab 05/25/20 06/08/21 Rx Citalopram Hydrobromide [CeleXA] 20 mg PO DAILY 06/08/21 06/08/21 History Allergies Allergy/AdvReac Type Severity Reaction Status Date / Time No Known Allergies Allergy Verified 06/08/21 17:29 Physical Exam Vitals: Vital Signs Temp Pulse Pulse Resp BP BP Pulse Ox 06/09/21 07:00 97.8 F 64 19 137/84 96 06/09/21 01:21 98.1 F 67 16 120/78 95 06/08/21 22:57 98.2 F 70 16 145/90 97 06/08/21 21:54 70 18 115/78 98 06/08/21 20:27 79 20 114/76 97 06/08/21 17:14 80 20 112/71 98 06/08/21 16:15 98.3 F 95 20 96/46 96 Intake and Output 06/08/21 06/09/21 06/09/21 22:59 06:59 14:59 Other: # Voids 1 Weight 86.183 kg Results 06/09/21 05:27 06/09/21 05:27 Cardiac Enzymes 06/08/21 06/08/21 06/08/21 Range/Units 16:36 16:36 20:50 AST 31 (14-36) U/L Troponin I <0.012 <0.012 (0.000-0.034) ng/mL 06/09/21 Range/Units 00:04 AST (14-36) U/L Troponin I <0.012 (0.000-0.034) ng/mL Coagulation 06/08/21 Range/Units 16:36 PT 10.1 (9.0-12.0) sec APTT 23.1 (22.0-30.0) sec CBC 06/08/21 06/09/21 Range/Units 16:36 05:27 WBC 13.0 H 9.34 (3.8-10.6) k/uL RBC 4.86 4.37 (3.80-5.40) m/uL Hgb 15.5 13.5 (11.4-16.0) gm/dL Hct 46.9 H 42.3 (34.0-46.0) % Plt Count 311 224 (150-450) k/uL Comprehensive Metabolic Panel 06/08/21 06/09/21 Range/Units 16:36 05:27 Sodium 144 141 (137-145) mmol/L Potassium 3.7 4.1 (3.5-5.1) mmol/L Chloride 116 H 111 H (98-107) mmol/L Carbon Dioxide 13 L 19.5 L (22-30) mmol/L BUN 15 12.7 (7-17) mg/dL Creatinine 0.91 0.6 (0.52-1.04) mg/dL Glucose 129 H 88 (74-99) mg/dL Calcium 10.0 8.8 (8.4-10.2) mg/dL AST 31 (14-36) U/L ALT 37 H (4-34) U/L Alkaline Phosphatase 81 (38-126) U/L Total Protein 7.2 (6.3-8.2) g/dL Albumin 4.5 (3.5-5.0) g/dL Current Medications Generic Name Dose Route Start Last Admin Trade Name Freq PRN Reason Stop Dose Admin Aspirin 325 mg 06/09/21 09:00 06/09/21 08:33 Aspirin 325 Mg Tab PO 325 mg DAILY JOAN Administration Citalopram Hydrobromide 20 mg 06/09/21 09:00 06/09/21 08:33 Citalopram Hydrobromide 20 Mg Tab PO 20 mg DAILY JOAN Administration Heparin Sodium (Porcine) 5,000 unit 06/09/21 00:00 06/09/21 08:32 Heparin Sodium,Porcine/Pf 5,000 Unit/0.5 Ml Syringe SQ 5,000 unit Q8HR JOAN Administration Lisinopril 20 mg 06/09/21 09:00 06/09/21 08:33 Lisinopril 20 Mg Tab PO 20 mg DAILY JOAN Administration Naloxone HCl 0.2 mg 06/08/21 19:49 Naloxone 0.4 Mg/Ml 1 Ml Vial IV Q2M PRN Opioid Reversal Intake and Output 06/08/21 06/09/21 06/09/21 22:59 06:59 14:59 Other: # Voids 1 Weight 86.183 kg 06/09/21 05:27 06/09/21 05:27
--- NOTE | 2021-06-09 14:37 | ECHOF ---
Referral Reason:re: EF MEASUREMENTS -------- HEIGHT: 167.6 cm WEIGHT: 86.2 kg BP: 137/84 RVIDd: 3.4 cm (< 3.3) IVSd: 1.3 cm (0.6 - 1.1) LVIDd: 3.6 cm (3.9 - 5.3) LVPWd: 1.5 cm (0.6 - 1.1) IVSs: 1.9 cm LVIDs: 1.5 cm LVPWs: 1.9 cm LAESV Index (A-L): 33.55 ml/m Ao Diam: 2.4 cm (2.0 - 3.7) AV Cusp: 1.9 cm (1.5 - 2.6) LA Diam: 3.6 cm (2.7 - 3.8) MV EXCURSION: 12.973 mm (> 18.000) MV EF SLOPE: 74 mm/s (70 - 150) EPSS: 0.2 cm MV E Maurilio: 1.01 m/s MV DecT: 211 ms MV A Maurilio: 0.84 m/s MV E/A Ratio: 1.21 RAP: 5.00 mmHg RVSP: 40.11 mmHg FINDINGS -------- Sinus rhythm. This was a technically adequate study. The left ventricular size is normal. There is mild concentric left ventricular hypertrophy. Overa ll left ventricular systolic function is normal with, an EF between 55 - 60 %. The diastolic fillin g pattern is normal for the age of the patient 15.13. The right ventricle is mildly enlarged. LA is midly dilated 29-33ml/m2. The right atrial size is normal. Interatrial and interventricular septum intact. There is no evidence of aortic regurgitation. There is no evidence of aortic stenosis. [place]-hh-mqzwgkgo mitral regurgitation is present. Mild tricuspid regurgitation present. There is mild pulmonary hypertension. The right ventricular systolic pressure, as measured by Doppler, is 40.11mmHg. There is no pulmonic regurgitation present. The aortic root size is normal. Normal inferior vena cava with normal inspiratory collapse consistent with estimated right atrial pre ssure of 5 mmHg. There is no pericardial effusion. CONCLUSIONS -------- 1. The left ventricular size is normal. 2. There is mild concentric left ventricular hypertrophy. 3. Overall left ventricular systolic function is normal with, an EF between 55 - 60 %. 4. The diastolic filling pattern is normal for the age of the patient 15.13 5. The right ventricle is mildly enlarged. 6. LA is midly dilated 29-33ml/m2. 7. Abji-uk-eyhjmsje mitral regurgitation is present. 8. Mild tricuspid regurgitation present. 9. There is mild pulmonary hypertension. 10. The right ventricular systolic pressure, as measured by Doppler, is 40.11mmHg. ELECT[employer]IC [employer]OR CONTROL ASSEMBLER: Ruth Holland RDCS
[2021-06-09 15:01] VITALS: BP 115/76; PULSE 88; RESP 18; TEMP 98.1
--- NOTE | 2021-06-09 15:34 | P.DS ---
<Erik Rodriguez - Last Filed: 06/09/21 14:51> Providers Expected date of discharge: 06/09/21 Hospital Course: Discharge Diagnosis: Atypical Chest pain, acute coronary event ruled out Abnormal computed tomography scan revealing scattered right upper lobe nodularities, will need repeat CT Abnormal CT findings revealing scattered nodularities in both breasts, will need to schedule mammography Prolonged QTC Leukocytosis Hyperglycemia DVT prophylaxis Hospital Course: The patient is a 46-year-old female with a past medical history of tobacco abuse (one pack per day), hypertension, and anxiety disorder with history of panic attacks who presents to the emergency room with complaints of chest discomfort and shortness of breath. The patient reports that her symptoms started around 2 PM when she was at her neighbor's house helping put up their [place] tree. She reports experiencing substernal heaviness and pressure-like sensation, 8 out of 10 of maximal intensity, nonexertional, without any alleviating or exacerbating features, radiating to the back and throughout her chest, with associated shortness of breath. She was seen and fully evaluated in the emergency department. EKG revealed normal sinus rhythm at 87 bpm with prolonged QTC at 478 ms as well as inferiorly Q waves and T-wave inversions with biphasic T waves inferiorly. CTA of the aorta negative for dissection or aneurysm revealing scattered right upper lobe nodularities along with scattered nodularities in both breasts recommending follow-up repeat CT in 3 months as well as mammogram for further evaluation. Chest x-ray was negative for acute cardiopulmonary process. Laboratory evaluation revealed leukocytosis of 13.0, CO2 13, glucose 129, troponins trended and were negative at less than 0.0123 draws. Echocardiogram revealing EF between 55 and 60% with mild to moderate mitral regurgitation and mild pulmonary hypertension. An acute coronary event was ruled out. Cardiology recommending follow-up outpatient for stress test next week. Patient denies having any chest pain or shortness of breath at this time. Patient is medically stable for discharge home at this time. She has been instructed to follow-up outpatient with her PCP Dr. Mcdonald for posthospitalization follow-up visit and to schedule a mammogram, web operations lead Dr. Robbins to schedule an outpatient stress test, and jewelry sales coordinator Dr. Pearce for further evaluation of right upper lung nodularities and arrangements for repeat CT. Patient strongly encouraged to stop smoking. Physical examination: General: non toxic, no distress, appears at stated age, obese Derm: no unusual rashes/lesions no unusual ecchymoses, warm, dry Head: atraumatic, normocephalic, symmetric Eyes: EOMI, no lid lag, anicteric sclera, pupils equal round reactive to light ENT: Nose and ears atraumatic, no thrush, no pharyngeal erythema Neck: No thyromegaly, no cervical lymphadenopathy, trachea midline, supple Mouth: no lip lesion, mucus membranes moist Cardiovascular: S1S2 reg, no murmur, positive posterior tibial pulse bilateral, no edema, capillary refill less than 2 seconds, no chest wall tenderness on palpation Lungs: CTA bilateral, no rhonchi, no rales , no accessory muscle use Abdominal: soft, nontender to palpation, no guarding, no appreciable organomegaly, normal bowel sounds Ext: no gross muscle atrophy, muscle strength 5 out of 5 in all 4 extremities grossly, no contractures, Neuro: CN II-XI grossly intact, light touch intact all 4 extremities, finger to nose within normal limits, Psych: Alert, oriented, appropriate affect A total of 45 minutes of time were spent preparing this complex discharge summary. Patient Condition at Discharge: Stable Plan - Discharge Summary Discharge Rx Participant: No New Discharge Prescriptions: Continue lisinopriL 20 mg PO DAILY 30 Days tab Citalopram Hydrobromide [CeleXA] 20 mg PO DAILY Discharge Medication List lisinopriL 20 mg PO DAILY 30 Days tab 05/25/20 [Rx] Citalopram Hydrobromide [CeleXA] 20 mg PO DAILY 06/08/21 [History] Follow up Appointment(s)/Referral(s): Gonzalo Robbins DO [STAFF PHYSICIAN] - 1 Week (will need to follow up for outpatient stress testing as recommended by Dr. Robbins. ) Gavin Mcdonald MD [Primary Care Provider] - 1-2 days Lorraine Pearce MD [STAFF PHYSICIAN] - 2 Weeks (Follow up on abnormal CT results showing scattered RUL nodularities recommending repeat CT in 3 months.) Patient Instructions/Handouts: Chest Pain (DC), How to Stop Smoking (DC) Activity/Diet/Wound Care/Special Instructions: Activity: As tolerated. Take breaks as needed. Diet: Heart healthy and carb consistent diet. Avoid salts, or foods with hidden salts such as canned or boxed foods and frozen dinners. Extra salt makes your heart work harder and traps the fluid in your body for longer. Special Instructions: Take all of your medications as directed and remember to keep all of your doctor's appointments and follow-up as needed. It is very important to follow-up with your primary care doctor Dr. Mcdonald for follow-up visit and to schedule a mammogram, your web operations lead Dr. Robbins to schedule an outpatient stress test, and jewelry sales coordinator Dr. Pearce for further evaluation of right upper lung and arrangements for repeat CT. You will need to complete an outpatient stress test with cardiology. Strongly encourage you to stop smoking!! CT also revealed scattered findings in bilateral breasts, likely inflammatory, will need mammography to further evaluate. Please schedule mammogram as soon as possible, this can be scheduled when you go to your follow up visit with your primary doctor, Dr. Mcdonald in two days. Thank you for allowing us to participate in your care, it was truly a pleasure having you for our patient!!! Discharge Disposition: HOME SELF-CARE <Sarah Vidal - Last Filed: 06/09/21 18:59> Providers Date of admission: 06/08/21 19:49 Attending physician: Cynthia Johnson MD Consults: 06/08/21 19:50 Consult Physician Urgent Consulting Provider: [facility] Consult Reason/Comments: acute chest pain Do you want consulting provider notified?: Yes Primary care physician: [facility] Course: Erik Rodriguez NP rendered care for this patient independently, reviewed the findings and plan as documented in the note above. I did not physically speak with or examine the patient on this date.
[2021-06-09 20:28] LABS: Albumin 3.9 g/dL (3.8-4.9); Chol/HDL Ratio 4.78 Ratio; HDL Cholesterol 49.8 mg/dL (40.00-60.00); Phosphorus 3.3 mg/dL (2.4-5.1); VLDL Calculation 33.2 mg/dL (5.00-40.00)
== END 2021-06-09 16:29 | disposition home or self-care (01) ==
LOC: EC 16:10 → 6NMEDSUR 19:49
PROVIDERS: ADMIT Internal Medicine; ATTEND Internal Medicine
DX: R07.89 Other chest pain (principal); R20.0 Anesthesia of skin; R20.2 Paresthesia of skin; R06.02 Shortness of breath; R61 Generalized hyperhidrosis; D72.829 Elevated white blood cell count, unspecified; R11.0 Nausea; I10 Essential (primary) hypertension; I95.9 Hypotension, unspecified; R07.2 Precordial pain; E87.2 Acidosis; F10.10 Alcohol abuse, uncomplicated; F32.9 Major depressive disorder, single episode, unspecified; F41.9 Anxiety disorder, unspecified; R91.8 Other nonspecific abnormal finding of lung field; R92.8 Other abnormal and inconclusive findings on diagnostic imaging of breast; R94.31 Abnormal electrocardiogram [ECG] [EKG]; I08.1 Rheumatic disorders of both mitral and tricuspid valves; R73.9 Hyperglycemia, unspecified; F17.210 Nicotine dependence, cigarettes, uncomplicated; F41.0 Panic disorder [episodic paroxysmal anxiety]; E66.9 Obesity, unspecified; Z68.30 Body mass index [BMI] 30.0-30.9, adult; I27.20 Pulmonary hypertension, unspecified; Z20.822 Contact with and (suspected) exposure to COVID-19; Z53.29 Procedure and treatment not carried out because of patient's decision for other reasons; Z79.899 Other long term (current) drug therapy; Z86.14 Personal history of Methicillin resistant Staphylococcus aureus infection; Z87.09 Personal history of other diseases of the respiratory system; Z71.41 Alcohol abuse counseling and surveillance of alcoholic; Z71.6 Tobacco abuse counseling; Z82.3 Family history of stroke; Z82.49 Family history of ischemic heart disease and other diseases of the circulatory system
CPT/HCPCS: 96372 ×2; 96361; 96365; 96375; 99285; 36415; 93005; 93306; 85379; 80061; 80053; 80048; 82040; 83735; 84100; 84484 ×2; 85025 ×2; 85610; 85730; 83036; 87635; 71046; 71275; 74174; G0378 ×2; J2270; J0456; Q9967; J1644 ×2

== ENCOUNTER 2021-06-28 15:02 | Emergency (ER) | payer BC ==
[2021-06-28 15:09] VITALS: BP 132/83; PULSE 76; RESP 18; TEMP 97.7
--- NOTE | 2021-06-28 15:22 | ED ---
General Adult HPI - General Chief complaint: Chest Pain Stated complaint: chest pain Time Seen by Provider: 06/28/21 15:21 Source: patient, EMS Mode of arrival: EMS Limitations: no limitations - History of Present Illness Initial comments: Patient presents to the ED by ambulance for evaluation. Patient states that she has had chest pressure intermittently for the past few weeks, and she states that her symptoms have been constant for the past 2 days or so. Patient also states states that she has felt mildly dyspneic today as well. Patient admits to having a cough and nasal drainage for the past few days as well. Patient states that she is fully vaccinated against Covid. Patient was admitted to the hospital earlier this month for similar symptoms, and she was cleared by cardiology at that time. Patient denies trauma or injury, radiation of her pain, fever or chills, headache, focal numbness/weakness/neuro deficit, neck/arm/jaw/back pain, pleuritic pain, hemoptysis, palpitations, dizziness, nausea/vomiting/diaphoresis, abdominal pain, dysuria or urinary symptoms, leg or calf swelling or pain, or any other symptoms or complaints. - Related Data Home Medications Medication Instructions Recorded Confirmed Citalopram Hydrobromide [CeleXA] 20 mg PO DAILY 06/08/21 06/28/21 Aspirin EC [Ecotrin Low Dose] 81 mg PO DAILY 06/28/21 06/28/21 Atorvastatin [Lipitor] 20 mg PO DAILY 06/28/21 06/28/21 Previous Rx's Medication Instructions Recorded lisinopriL 20 mg PO DAILY 30 Days tab 05/25/20 Allergies Allergy/AdvReac Type Severity Reaction Status Date / Time No Known Allergies Allergy Verified 06/28/21 16:48 Review of Systems ROS Statement: Those systems with pertinent positive or pertinent negative responses have been documented in the HPI. ROS Other: All systems not noted in ROS Statement are negative. Past Medical History Past Medical History: Hypertension Additional Past Medical History / Comment(s): Depression History of Any Multi-Drug Resistant Organisms: MRSA Date of last positivie culture/infection: 08/04/2017 MDRO Source:: nose Past Surgical History: No Surgical Hx Reported Past Anesthesia/Blood Transfusion Reactions: No Reported Reaction Past Psychological History: Anxiety, Depression Smoking Status: Current every day smoker Past Alcohol Use History: Daily, Heavy Past Drug Use History: Marijuana - Past Family History Father Family Medical History: CVA/TIA Additional Family Medical History / Comment(s): aneurisym x 2, then a strok 5 years ago Mother Family Medical History: No Reported History Family Additional Family Medical History / Comment(s): Premature CAD in her uncle maternal side General Exam Limitations: no limitations General appearance: alert, in no apparent distress Head exam: Present: atraumatic, normocephalic Eye exam: Present: normal appearance, EOMI ENT exam: Present: mucous membranes moist Neck exam: Present: other (Trachea is in midline) Respiratory exam: Present: normal lung sounds bilaterally. Absent: respiratory distress, wheezes, rales, rhonchi, stridor, chest wall tenderness Cardiovascular Exam: Present: regular rate, normal rhythm, normal heart sounds, other (Normal radial pulses bilaterally) GI/Abdominal exam: Present: soft. Absent: distended, tenderness, guarding Extremities exam: Present: other (Negative Homans sign bilaterally). Absent: tenderness, pedal edema, calf tenderness Neurological exam: Present: alert, oriented X3. Absent: motor sensory deficit Psychiatric exam: Present: normal affect, normal mood Skin exam: Present: warm, dry, intact, normal color Course Vital Signs 06/28/21 15:08 Temperature 97.7 F Pulse Rate 76 Respiratory 18 Rate Blood Pressure 132/83 O2 Sat by Pulse 95 Oximetry - Reevaluation(s) Reevaluation #1: 06/28/21 18:53 Patient denies development of any new symptoms while in the ED. Patient remains alert and breathing comfortably with a normal room air oxygen saturation. Patient is aware of her test results, and she feels comfortable going home at this time. Patient was counseled about chest pain and upper respiratory infections. Patient was clearly explained return and follow-up instructions, and she feels comfortable this plan. Patient was instructed to follow up closely with her primary care provider. EKG Findings - EKG Comments: EKG Findings:: Normal sinus rhythm, ventricular rate of 71 bpm, no ectopy, normal MN and QRS intervals, normal QT interval, normal axis, no ST or T-wave abnormality Medical Decision Making - Medical Decision Making Patient is afebrile and without leukocytosis. Patient has a normal room air oxygen saturation. Patient's vital signs are within normal limits. Patient's labs are fairly unremarkable. Patient's chest x-ray shows no acute abnormality. I suspect that the patient's symptoms may be secondary to a viral upper respiratory infection. Patient's troponin is negative, and patient was just recently admitted to the hospital for her chest pain. Patient was cleared by cardiology at that time. Patient's Covid test is negative. I do not suspect an emergent medical condition at this time. Will discharge patient home at this time. Patient feels comfortable with this plan. - Lab Data Result diagrams: 06/28/21 16:32 06/28/21 16:32 Lab Results 06/28/21 06/28/21 06/28/21 Range/Units 16:32 16:32 16:32 WBC 11.9 H (3.8-10.6) k/uL RBC 4.81 (3.80-5.40) m/uL Hgb 15.3 (11.4-16.0) gm/dL Hct 46.1 H (34.0-46.0) % MCV 95.8 (80.0-100.0) fL MCH 31.7 (25.0-35.0) pg MCHC 33.1 (31.0-37.0) g/dL RDW 12.8 (11.5-15.5) % Plt Count 287 (150-450) k/uL MPV 8.1 Neutrophils % 67 % Lymphocytes % 23 % Monocytes % 4 % Eosinophils % 4 % Basophils % 1 % Neutrophils # 7.9 H (1.3-7.7) k/uL Lymphocytes # 2.8 (1.0-4.8) k/uL Monocytes # 0.5 (0-1.0) k/uL Eosinophils # 0.5 (0-0.7) k/uL Basophils # 0.1 (0-0.2) k/uL PT 9.4 (9.0-12.0) sec INR 0.8 (<1.2) APTT 19.1 L (22.0-30.0) sec D-Dimer 0.50 (<0.60) mg/L FEU Sodium 143 (137-145) mmol/L Potassium 4.2 (3.5-5.1) mmol/L Chloride 110 H (98-107) mmol/L Carbon Dioxide 22 (22-30) mmol/L Anion Gap 11 mmol/L BUN 14 (7-17) mg/dL Creatinine 0.95 (0.52-1.04) mg/dL Est GFR (CKD-EPI)AfAm 84 (>60 ml/min/1.73 sqM) Est GFR (CKD-EPI)NonAf 73 (>60 ml/min/1.73 sqM) Glucose 90 (74-99) mg/dL Calcium 9.6 (8.4-10.2) mg/dL Magnesium 2.1 (1.6-2.3) mg/dL Total Bilirubin 0.3 (0.2-1.3) mg/dL AST 27 (14-36) U/L ALT 27 (4-34) U/L Alkaline Phosphatase 80 (38-126) U/L Troponin I (0.000-0.034) ng/mL NT-Pro-B Natriuret Pep pg/mL Total Protein 7.2 (6.3-8.2) g/dL Albumin 4.5 (3.5-5.0) g/dL Coronavirus (PCR) (Not Detectd) 06/28/21 06/28/21 06/28/21 Range/Units 16:32 16:32 17:48 WBC (3.8-10.6) k/uL RBC (3.80-5.40) m/uL Hgb (11.4-16.0) gm/dL Hct (34.0-46.0) % MCV (80.0-100.0) fL MCH (25.0-35.0) pg MCHC (31.0-37.0) g/dL RDW (11.5-15.5) % Plt Count (150-450) k/uL MPV Neutrophils % % Lymphocytes % % Monocytes % % Eosinophils % % Basophils % % Neutrophils # (1.3-7.7) k/uL Lymphocytes # (1.0-4.8) k/uL Monocytes # (0-1.0) k/uL Eosinophils # (0-0.7) k/uL Basophils # (0-0.2) k/uL PT (9.0-12.0) sec INR (<1.2) APTT (22.0-30.0) sec D-Dimer (<0.60) mg/L FEU Sodium (137-145) mmol/L Potassium (3.5-5.1) mmol/L Chloride (98-107) mmol/L Carbon Dioxide (22-30) mmol/L Anion Gap mmol/L BUN (7-17) mg/dL Creatinine (0.52-1.04) mg/dL Est GFR (CKD-EPI)AfAm (>60 ml/min/1.73 sqM) Est GFR (CKD-EPI)NonAf (>60 ml/min/1.73 sqM) Glucose (74-99) mg/dL Calcium (8.4-10.2) mg/dL Magnesium (1.6-2.3) mg/dL Total Bilirubin (0.2-1.3) mg/dL AST (14-36) U/L ALT (4-34) U/L Alkaline Phosphatase (38-126) U/L Troponin I <0.012 (0.000-0.034) ng/mL NT-Pro-B Natriuret Pep 36 pg/mL Total Protein (6.3-8.2) g/dL Albumin (3.5-5.0) g/dL Coronavirus (PCR) Not Detected (Not Detectd) - Radiology Data Chest x-ray: There is a 4 to 5 mm nodular opacity in the right lower hemithorax which may represent a vessel en face or a tiny lung nodule, correlated with comparison exams this may correlate with an area of reticular nodular/groundglass opacity in the right lower lobe. Consider short-term repeat CT of the chest in 3-6 months to rule out developing nodule/malignant. No focal airspace disease, pneumothorax or pleural effusions. The cardiomediastinal silhouette is normal in appearance. No acute osseous abnormalities seen. Disposition Clinical Impression: Chest pain, Upper respiratory infection Disposition: HOME SELF-CARE Condition: Stable Instructions (If sedation given, give patient instructions): Chest Pain (ED), Upper Respiratory Infection (ED) Additional Instructions: Return to the ER immediately should you develop new or worsening pain, increased shortness of breath, a high fever, feeling dizzy or faint, or new or worsening symptoms. Follow up closely with your primary care provider. Is patient prescribed a controlled substance at d/c from ED?: No Referrals: Gavin Mcdonald MD [Primary Care Provider] - 1-2 days Time of Disposition: 18:57
[2021-06-28] MEDS ORDERED: IBUPROFEN 600 MG TAB PO STA (16:39)
[2021-06-28 16:41] LABS: Basophils # (A) 0.1 k/uL (0-0.2); Basophils % (A) 1 %; Eosinophils # (A) 0.5 k/uL (0-0.7); Eosinophils % (A) 4 %; HCT 46.1 % (34.0-46.0); HGB 15.3 gm/dL (11.4-16.0); Lymphocytes # (A) 2.8 k/uL (1.0-4.8); Lymphocytes % (A) 23 %; MCH 31.7 pg (25.0-35.0); MCHC 33.1 g/dL (31.0-37.0); MCV 95.8 fL (80.0-100.0); Mean Platelet Volume 8.1; Monocytes # (A) 0.5 k/uL (0-1.0); Monocytes % (A) 4 %; Neutrophils # (A) 7.9 k/uL (1.3-7.7); Neutrophils % (A) 67 %; Platelet Count 287 k/uL (150-450); RBC 4.81 m/uL (3.80-5.40); RDW 12.8 % (11.5-15.5); WBC 11.9 k/uL (3.8-10.6)
[2021-06-28 16:52] LABS: Albumin 4.5 g/dL (3.5-5.0); Calcium 9.6 mg/dL (8.4-10.2); Magnesium 2.1 mg/dL (1.6-2.3); Potassium 4.2 mmol/L (3.5-5.1); Total Bilirubin 0.3 mg/dL (0.2-1.3); Total Protein 7.2 g/dL (6.3-8.2)
[2021-06-28 17:10] LABS: INR 0.8 (<1.2); Prothrombin Time 9.4 sec (9.0-12.0)
[2021-06-28 17:17] LABS: Partial Thromboplastin Time 19.1 sec (22.0-30.0)
--- NOTE | 2021-06-28 17:46 | XR ---
EXAMINATION TYPE: XR chest 2V DATE OF EXAM: 06/28/2021 COMPARISON: 06/08/2021, CT angiogram and chest radiographs HISTORY: 46 years Female. STUDY INDICATION GIVEN: Chest Pain . TECHNIQUE: Frontal and lateral chest radiographs. IMPRESSION: There is a 4 to 5 mm nodular opacity in the right lower hemithorax which may represent a vessel en fa ce or a tiny lung nodule, correlated with comparison exams this may correlate with an area of reticul ar nodular/groundglass opacity in the right lower lobe.. Consider short-term repeat CT of the chest i n 3-6 months to rule out developing nodule/malignant. No focal airspace disease, pneumothorax or pleural effusion. The cardiomediastinal silhouette is normal in appearance. No acute osseous abnormalities seen.
== END 2021-06-28 19:08 | disposition home or self-care (01) ==
LOC: EC 15:02
DX: R07.9 Chest pain, unspecified (principal); J06.9 Acute upper respiratory infection, unspecified; I10 Essential (primary) hypertension; F32.A Depression, unspecified; F41.9 Anxiety disorder, unspecified; Z72.89 Other problems related to lifestyle; F12.90 Cannabis use, unspecified, uncomplicated; F17.200 Nicotine dependence, unspecified, uncomplicated
CPT/HCPCS: 36415; 71046; 80053; 83735; 83880; 84484; 85025; 85379; 85610; 85730; 87635; 93005; 99285

== ENCOUNTER 2021-07-11 15:38 | Observation (INO) | payer BC ==
[2021-07-11 16:09] LABS: Basophils # (A) 0.1 k/uL (0-0.2); Basophils % (A) 1 %; Eosinophils # (A) 0.3 k/uL (0-0.7); Eosinophils % (A) 2 %; HCT 48.4 % (34.0-46.0); HGB 16.5 gm/dL (11.4-16.0); Lymphocytes % (A) 27 %; MCH 33.5 pg (25.0-35.0); MCV 98.5 fL (80.0-100.0); Mean Platelet Volume 7.3; Monocytes # (A) 0.4 k/uL (0-1.0); Monocytes % (A) 3 %; Neutrophils # (A) 7.4 k/uL (1.3-7.7); Neutrophils % (A) 65 %; Platelet Count 302 k/uL (150-450); RBC 4.92 m/uL (3.80-5.40); RDW 13.6 % (11.5-15.5); WBC 11.3 k/uL (3.8-10.6)
[2021-07-11] MEDS ORDERED: ONDANSETRON 4 MG/2 ML VIAL IVP STA (16:13)
[2021-07-11] MEDS ORDERED: MORPHINE SULFATE 4 MG/ML SYRINGE IVP STA (16:14)
[2021-07-11 16:24] LABS: INR 0.9 (<1.2); Partial Thromboplastin Time 22.2 sec (22.0-30.0); Prothrombin Time 9.6 sec (9.0-12.0)
--- NOTE | 2021-07-11 16:37 | ED ---
General Adult HPI - General Chief complaint: Chest Pain Stated complaint: chest pain Time Seen by Provider: 07/11/21 15:45 Source: patient, RN notes reviewed, old records reviewed Mode of arrival: EMS Limitations: no limitations - History of Present Illness Initial comments: 46 -year-old female presenting for evaluation of chest pain. This is across her lower chest. She's had several episodes similar to this and has had 2 admissions in the past 2 months. She is awaiting an outpatient stress test. She had some associated nausea and vomiting. She's had no previous stenting. She states she was told that she had a minor heart attack in the past. No cough or fever. - Related Data Home Medications Medication Instructions Recorded Confirmed Citalopram Hydrobromide [CeleXA] 20 mg PO DAILY 06/08/21 06/28/21 Aspirin EC [Ecotrin Low Dose] 81 mg PO DAILY 06/28/21 06/28/21 Atorvastatin [Lipitor] 20 mg PO DAILY 06/28/21 06/28/21 Previous Rx's Medication Instructions Recorded lisinopriL 20 mg PO DAILY 30 Days tab 05/25/20 Allergies Allergy/AdvReac Type Severity Reaction Status Date / Time No Known Allergies Allergy Verified 06/28/21 16:48 Review of Systems ROS Statement: Those systems with pertinent positive or pertinent negative responses have been documented in the HPI. ROS Other: All systems not noted in ROS Statement are negative. Past Medical History Past Medical History: Hypertension Additional Past Medical History / Comment(s): Depression History of Any Multi-Drug Resistant Organisms: MRSA Date of last positivie culture/infection: 08/04/2017 MDRO Source:: nose Past Surgical History: No Surgical Hx Reported Past Anesthesia/Blood Transfusion Reactions: No Reported Reaction Past Psychological History: Anxiety, Depression Smoking Status: Current every day smoker Past Alcohol Use History: Daily, Heavy Past Drug Use History: Marijuana - Past Family History Father Family Medical History: CVA/TIA Additional Family Medical History / Comment(s): aneurisym x 2, then a strok 5 ye ars ago Mother Family Medical History: No Reported History Family Additional Family Medical History / Comment(s): Premature CAD in her uncle maternal side General Exam Limitations: no limitations General appearance: alert, in no apparent distress Head exam: Present: atraumatic, normocephalic Eye exam: Present: normal appearance, PERRL ENT exam: Present: normal exam Neck exam: Present: normal inspection. Absent: tenderness, meningismus Respiratory exam: Present: normal lung sounds bilaterally. Absent: respiratory distress, wheezes Cardiovascular Exam: Present: regular rate, normal rhythm GI/Abdominal exam: Present: soft. Absent: distended, tenderness, guarding Extremities exam: Present: normal inspection, normal capillary refill. Absent: pedal edema Neurological exam: Present: alert, oriented X3, CN II-XII intact. Absent: motor sensory deficit Psychiatric exam: Present: normal affect, normal mood Skin exam: Present: warm, dry, intact. Absent: cyanosis, diaphoretic Course Vital Signs 07/11/21 15:50 Pulse Rate 67 Respiratory 16 Rate Blood Pressure 111/68 O2 Sat by Pulse 97 Oximetry EKG Findings - EKG Comments: EKG Findings:: EKG: Sinus bradycardia, rate of 59, AL interval 156, QRS duration 76, QTC 445, no ST segment elevation. Medical Decision Making - Medical Decision Making 46-year-old female presenting with substernal chest pain and pressure. This is her third visit for similar symptoms. She has an outpatient stress test scheduled but has not had recent cardiac testing. She was admitted and discharged after negative cardiac enzymes within the past one month. Patient continues to have pain. She did there is no abdominal tenderness. There is no cough or dyspnea. Initial troponin is negative. EKG is sinus rhythm without ST segment elevation. Chest x-ray is clear. She will be kept in observation for serial cardiac enzymes, case discussed with [facility]. - Lab Data Result diagrams: 07/11/21 16:00 07/11/21 16:46 Lab Results 07/11/21 07/11/21 07/11/21 Range/Units 16:00 16:00 16:46 WBC 11.3 H (3.8-10.6) k/uL RBC 4.92 (3.80-5.40) m/uL Hgb 16.5 H (11.4-16.0) gm/dL Hct 48.4 H (34.0-46.0) % MCV 98.5 (80.0-100.0) fL MCH 33.5 (25.0-35.0) pg MCHC 34.0 (31.0-37.0) g/dL RDW 13.6 (11.5-15.5) % Plt Count 302 (150-450) k/uL MPV 7.3 Neutrophils % 65 % Lymphocytes % 27 % Monocytes % 3 % Eosinophils % 2 % Basophils % 1 % Neutrophils # 7.4 (1.3-7.7) k/uL Lymphocytes # 3.0 (1.0-4.8) k/uL Monocytes # 0.4 (0-1.0) k/uL Eosinophils # 0.3 (0-0.7) k/uL Basophils # 0.1 (0-0.2) k/uL PT 9.6 (9.0-12.0) sec INR 0.9 (<1.2) APTT 22.2 (22.0-30.0) sec Sodium 144 (137-145) mmol/L Potassium 3.9 (3.5-5.1) mmol/L Chloride 112 H (98-107) mmol/L Carbon Dioxide 19 L (22-30) mmol/L Anion Gap 13 mmol/L BUN 8 (7-17) mg/dL Creatinine 0.56 (0.52-1.04) mg/dL Est GFR (CKD-EPI)AfAm >90 (>60 ml/min/1.73 sqM) Est GFR (CKD-EPI)NonAf >90 (>60 ml/min/1.73 sqM) Glucose 112 H (74-99) mg/dL Calcium 9.6 (8.4-10.2) mg/dL Magnesium 2.1 (1.6-2.3) mg/dL Total Bilirubin 0.3 (0.2-1.3) mg/dL AST 41 H (14-36) U/L ALT 34 (4-34) U/L Alkaline Phosphatase 83 (38-126) U/L Troponin I (0.000-0.034) ng/mL Total Protein 7.6 (6.3-8.2) g/dL Albumin 4.7 (3.5-5.0) g/dL Lipase 227 (23-300) U/L 07/11/21 Range/Units 16:46 WBC (3.8-10.6) k/uL RBC (3.80-5.40) m/uL Hgb (11.4-16.0) gm/dL Hct (34.0-46.0) % MCV (80.0-100.0) fL MCH (25.0-35.0) pg MCHC (31.0-37.0) g/dL RDW (11.5-15.5) % Plt Count (150-450) k/uL MPV Neutrophils % % Lymphocytes % % Monocytes % % Eosinophils % % Basophils % % Neutrophils # (1.3-7.7) k/uL Lymphocytes # (1.0-4.8) k/uL Monocytes # (0-1.0) k/uL Eosinophils # (0-0.7) k/uL Basophils # (0-0.2) k/uL PT (9.0-12.0) sec INR (<1.2) APTT (22.0-30.0) sec Sodium (137-145) mmol/L Potassium (3.5-5.1) mmol/L Chloride (98-107) mmol/L Carbon Dioxide (22-30) mmol/L Anion Gap mmol/L BUN (7-17) mg/dL Creatinine (0.52-1.04) mg/dL Est GFR (CKD-EPI)AfAm (>60 ml/min/1.73 sqM) Est GFR (CKD-EPI)NonAf (>60 ml/min/1.73 sqM) Glucose (74-99) mg/dL Calcium (8.4-10.2) mg/dL Magnesium (1.6-2.3) mg/dL Total Bilirubin (0.2-1.3) mg/dL AST (14-36) U/L ALT (4-34) U/L Alkaline Phosphatase (38-126) U/L Troponin I <0.012 (0.000-0.034) ng/mL Total Protein (6.3-8.2) g/dL Albumin (3.5-5.0) g/dL Lipase (23-300) U/L Disposition Clinical Impression: Chest pain Disposition: ADMITTED IP TO THIS [facility] Condition: Stable Is patient prescribed a controlled substance at d/c from ED?: No Referrals: Gavin Mcdonald MD [Primary Care Provider] - 1-2 days Decision to Admit Reason: Admit from EC Decision Date: 07/11/21 Decision Time: 18:11
--- NOTE | 2021-07-11 16:47 | XR ---
EXAMINATION TYPE: XR chest 2V DATE OF EXAM: 07/11/2021 COMPARISON: Chest x-ray 06/28/2021 HISTORY: Chest pain TECHNIQUE: Frontal and lateral views of the chest are obtained. FINDINGS: There is no focal air space opacity, pleural effusion, or pneumothorax seen. The cardiac silhouette size is within normal limits. There are overlying leads. The osseous structures are intac t. IMPRESSION: No acute cardiopulmonary process.
[2021-07-11 17:05] LABS: ALT 34 U/L (4-34); AST 41 U/L (14-36); African American GFR (CKD) >90 (>60 ml/min/1.73 sqM); Albumin 4.7 g/dL (3.5-5.0); Alkaline Phosphatase 83 U/L (38-126); Anion Gap 13 mmol/L; Blood Urea Nitrogen 8 mg/dL (7-17); Calcium 9.6 mg/dL (8.4-10.2); Carbon Dioxide 19 mmol/L (22-30); Chloride 112 mmol/L (98-107); Glucose 112 mg/dL (74-99); Lipase 227 U/L (23-300); Magnesium 2.1 mg/dL (1.6-2.3); Non-African American GFR(CKD) >90 (>60 ml/min/1.73 sqM); Potassium 3.9 mmol/L (3.5-5.1); Sodium 144 mmol/L (137-145); Total Bilirubin 0.3 mg/dL (0.2-1.3); Total Protein 7.6 g/dL (6.3-8.2)
[2021-07-11] MEDS ORDERED: ASPIRIN 325 MG TAB PO STA (18:02)
[2021-07-11] MEDS ORDERED: ACETAMINOPHEN TAB 325 MG TAB PO PRN (18:02)
[2021-07-11] MEDS ORDERED: NALOXONE 0.4 MG/ML 1 ML VIAL IV PRN (18:02)
[2021-07-11] MEDS: MORPHINE SULFATE 4 MG/ML SYRINGE IV PRN (18:26)
--- NOTE | 2021-07-12 03:06 | P.HPIM ---
History of Present Illness H&P Date: 07/11/21 Chief Complaint: chest pain 46 year old female with anxiety and hypertension patient comes in due to sudden onset lower chest heaviness , described as crushing pain with SOB, profuse sweating, nausea, and numbness in the fingers. . denies any LOC. pain was precipitated by doing laundry , however, over past few weeks, she has been having randome mini episodes of these chest pains usually to milder degree , but she was hospitalized about 2 weeks ago for chest pain and found to have lung nodules on CT of chest , and cardiology recommended OP stress test , that she did not get it done yet. patient denies any cardiac history , but she is a heavy smoker, with positive familiy history of premature CAD in her maternal uncles initial workup in the ED was overall unremarkable Review of Systems Pertinent positives as noted in HPI. All other systems were reviewed and are negative Past Medical History Past Medical History: Hypertension Additional Past Medical History / Comment(s): Depression History of Any Multi-Drug Resistant Organisms: MRSA Date of last positivie culture/infection: 08/04/2017 MDRO Source:: nose Past Surgical History: No Surgical Hx Reported Past Anesthesia/Blood Transfusion Reactions: No Reported Reaction Past Psychological History: Anxiety, Depression Smoking Status: Current every day smoker Past Alcohol Use History: Daily, Heavy Past Drug Use History: Marijuana - Past Family History Father Family Medical History: CVA/TIA Additional Family Medical History / Comment(s): aneurisym x 2, then a strok 5 years ago Mother Family Medical History: No Reported History Family Additional Family Medical History / Comment(s): Premature CAD in her uncle maternal side Medications and Allergies Home Medications Medication Instructions Recorded Confirmed Type lisinopriL 20 mg PO DAILY 30 Days tab 05/25/20 07/11/21 Rx Citalopram Hydrobromide [CeleXA] 20 mg PO DAILY 06/08/21 07/11/21 History Aspirin EC [Ecotrin Low Dose] 81 mg PO DAILY 06/28/21 07/11/21 History Atorvastatin [Lipitor] 20 mg PO DAILY 06/28/21 07/11/21 History Allergies Allergy/AdvReac Type Severity Reaction Status Date / Time No Known Allergies Allergy Verified 07/11/21 18:44 Physical Exam Vitals: Vital Signs Pulse Resp BP Pulse Ox 07/11/21 20:29 65 16 115/74 96 07/11/21 15:50 67 16 111/68 97 Intake and Output 07/11/21 07/11/21 07/11/21 06:59 14:59 22:59 Other: Weight 89.811 kg Constitutional: No acute distress, conversant, pleasant Eyes: Anicteric sclerae, moist conjunctiva, Pupils equal round reactive to light ENMT: NC/AT Oropharynx clear, no erythema, or exudates Neck: Supple, FROM, no masses, or JVD No carotid bruits No thyromegaly Lungs: Clear to auscultation Clear to percussion Normal respiratory effort, no accessory muscle use Cardiovascular: Heart regular in rate and rhythm, No murmurs, gallops, or rubs No peripheral edema Abdominal: Soft Nontender, no guarding, rebound or rigidity Abdomen moving with respiration Normoactive bowel sounds No hepatomegaly, No splenomegaly No palpable mass No abdominal wall hernia noted Skin: Normal temperature, tone, texture, turgor No induration No subcutaneous nodules No rash, lesions No ulcers Extremities: No digital cyanosis No clubbing Pedal pulses intact and symmetrical Radial pulses intact and symmetrical No calf tenderness Psychiatric: Alert and oriented to person, place and time Appropriate affect fair judgement Neuro Muscles Strength 5/5 in all 4 extremities Sensation to light touch grossly present throughout Cranial nerves II-XII grossly intact No focal sensory deficits Lymphatics: no palpable cervical or supraclavicular , or inguinal lymph nodes Results CBC & Chem 7: 07/11/21 16:00 07/11/21 16:46 Labs: Abnormal Lab Results - Last 24 Hours (Table) 07/11/21 07/11/21 Range/Units 16:00 16:46 WBC 11.3 H (3.8-10.6) k/uL Hgb 16.5 H (11.4-16.0) gm/dL Hct 48.4 H (34.0-46.0) % Chloride 112 H (98-107) mmol/L Carbon Dioxide 19 L (22-30) mmol/L Glucose 112 H (74-99) mg/dL AST 41 H (14-36) U/L Assessment and Plan Assessment: atypical recurrent chest pain monitor vital signs trend trops , initial neg cardiac tele cardiology eval ASA, statin pain control polycythemia secondary to heavy smoking chronic conditions depression / anxiety hypertension resume home meds incidental finding of lung nodules , continue OP follow up with pulmonary full code DVT PPX heparin sc tid anticipated length of stay < 2 midnights
[2021-07-12] MEDS ORDERED: HEPARIN SODIUM,PORCINE/PF 5,000 UNIT/0.5 ML SYRINGE SQ SCH (08:00)
[2021-07-12] MEDS: MORPHINE SULFATE 4 MG/ML SYRINGE IV PRN (08:21)
[2021-07-12] MEDS ORDERED: lisinopriL 20 MG TAB PO SCH (09:00)
[2021-07-12] MEDS ORDERED: ATORVASTATIN 20 MG TAB PO SCH (09:00)
[2021-07-12] MEDS ORDERED: CITALOPRAM HYDROBROMIDE 20 MG TAB PO SCH (09:00)
[2021-07-12] MEDS ORDERED: ASPIRIN 325 MG TAB PO SCH (09:00)
[2021-07-12] MEDS ORDERED: ASPIRIN 81 MG PO SCH (09:00)
[2021-07-12 09:03] VITALS: BP 144/90; PULSE 56; RESP 16; TEMP 98.2
--- NOTE | 2021-07-12 10:25 | P.CRDCN ---
History of Present Illness History of present illness: HISTORY OF PRESENTING ILLNESS This is a pleasant 46-year-old with past medical history significant for hypertension, alcohol abuse, tobacco abuse and family history of coronary artery disease, bronchitis. 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 We are consulted for chest pain. She presents with complaints of chest tightness and heaviness. Start yesterday afternoon when she was cooking. Located in the center of her chest. It is non-radiating, non-exertional. She had associated shortness of breath, nausea and vomiting. She has been having intermittent episodes of chest discomfort when doing light activities. She was seen in the hospital in June 2021 with chest pain. She was evaluated by cardiology, acute coronary syndrome was ruled out. CT thorax performed to rule out dissection which showed no dissection as well as nonspecific right grass ground opacities, she was recently diagnosed with bronchitis at that time. She underwent Echocardiogram 06/09/2021 which revealed an EF of 5560% mild to moderate mitral regurgitation, mild tricuspid regurgitation, mild pulmonary hypertension with RVSP of 40 mmHg. She was discharged home and was awaiting stress test as an outpatient. She denies any history of coronary disease, ID, stroke, diabetes. She is a current every day smoker and drinker, she also occasionally has used marijuana. DIAGNOSTICS: EKG reveals sinus bradycardia, heart rate 59, no significant ST has to abnormalities. Labs reviewed, WBC 11.3, hemoglobin 16.5, platelets 302, d-dimer negative, troponin negative 2, sodium 144, potassium 3.9, BUN8, serum creatinine 0.5, Covid 19 PCR negative. REVIEW OF SYSTEMS At the time of my exam: CONSTITUTIONAL: Denies fever or chills. CARDIOVASCULAR: +chest pain, +shortness of breath, no orthopnea, PND or palpitations. RESPIRATORY: Denies cough. GASTROINTESTINAL: +nausea +vomiting Denies abdominal pain, diarrhea, co nstipation MUSCULOSKELETAL: Denies myalgias. NEUROLOGIC: Denies numbness, tingling or weakness. ENDOCRINE: Denies fatigue, weight change, polydipsia or polyurina. GENITOURINARY: Denies burning, hematuria or urgency with micturation. HEMATOLOGIC: Denies history of anemia or bleeding. PHYSICAL EXAMINATION Vital signs reviewed. CONSTITUTIONAL: No apparent distress. HEENT: Head is normocephalic. Pupils are equal, round. Sclerae anicteric. Mucous membranes of the mouth are moist. No JVD. No carotid bruit. CHEST EXAMINATION: Lungs are clear to auscultation. No chest wall tenderness is noted on palpation or with deep breathing. HEART EXAMINATION: Regular rate and rhythm. S1, S2 heard. Systolic ejection murmur at apex, No gallops or rub. ABDOMEN: Soft, nontender. Positive bowel sounds. EXTREMITIES: 2+ peripheral pulses, no lower extremity edema and no calf tenderness. NEUROLOGIC EXAMINATION: Patient is awake, alert and oriented x3. ASSESSMENT Atypical chest pain, currently improved troponin is normal 2, acute coronary syndrome has been ruled out Groundglass opacities noted on CAT scan in 06/2021, recent history of bronchitis Tobacco abuse Alcohol abuse Hypertension Family history of coronary artery disease PLAN An acute coronary event has been ruled out with no EKG evidence of ischemia and negative cardiac enzymes. Perform stress echo test to assess for stress induced cardiac ischemia. If abnormal will consider coronary angiography. If stress test is normal, ok to discharge from cardiology perspective, patient can follow up as an outpatient. Smoking and alcohol cessation discussed and highly recommended. Thank you kindly for this consultation. Past Medical History Past Medical History: Hypertension Additional Past Medical History / Comment(s): Depression History of Any Multi-Drug Resistant Organisms: MRSA Date of last positivie culture/infection: 08/04/2017 MDRO Source:: nose Past Surgical History: No Surgical Hx Reported Past Anesthesia/Blood Transfusion Reactions: No Reported Reaction Past Psychological History: Anxiety, Depression Smoking Status: Current every day smoker Past Alcohol Use History: Daily, Heavy Past Drug Use History: Marijuana - Past Family History Father Family Medical History: CVA/TIA Additional Family Medical History / Comment(s): aneurisym x 2, then a strok 5 years ago Mother Family Medical History: No Reported History Family Additional Family Medical History / Comment(s): Premature CAD in her uncle maternal side Medications and Allergies Home Medications Medication Instructions Recorded Confirmed Type lisinopriL 20 mg PO DAILY 30 Days tab 05/25/20 07/11/21 Rx Citalopram Hydrobromide [CeleXA] 20 mg PO DAILY 06/08/21 07/11/21 History Aspirin EC [Ecotrin Low Dose] 81 mg PO DAILY 06/28/21 07/11/21 History Atorvastatin [Lipitor] 20 mg PO DAILY 06/28/21 07/11/21 History Allergies Allergy/AdvReac Type Severity Reaction Status Date / Time No Known Allergies Allergy Verified 07/11/21 18:44 Physical Exam Vitals: Vital Signs Pulse Resp BP Pulse Ox 07/12/21 06:28 57 L 14 112/72 98 07/11/21 20:29 65 16 115/74 96 07/11/21 15:50 67 16 111/68 97 Intake and Output 07/11/21 07/12/21 07/12/21 22:59 06:59 14:59 Other: Weight 89.811 kg Results 07/11/21 16:00 07/11/21 16:46 Cardiac Enzymes 07/11/21 07/11/21 Range/Units 16:46 16:46 AST 41 H (14-36) U/L Troponin I <0.012 (0.000-0.034) ng/mL Coagulation 07/11/21 Range/Units 16:00 PT 9.6 (9.0-12.0) sec APTT 22.2 (22.0-30.0) sec CBC 07/11/21 Range/Units 16:00 WBC 11.3 H (3.8-10.6) k/uL RBC 4.92 (3.80-5.40) m/uL Hgb 16.5 H (11.4-16.0) gm/dL Hct 48.4 H (34.0-46.0) % Plt Count 302 (150-450) k/uL Comprehensive Metabolic Panel 07/11/21 Range/Units 16:46 Sodium 144 (137-145) mmol/L Potassium 3.9 (3.5-5.1) mmol/L Chloride 112 H (98-107) mmol/L Carbon Dioxide 19 L (22-30) mmol/L BUN 8 (7-17) mg/dL Creatinine 0.56 (0.52-1.04) mg/dL Glucose 112 H (74-99) mg/dL Calcium 9.6 (8.4-10.2) mg/dL AST 41 H (14-36) U/L ALT 34 (4-34) U/L Alkaline Phosphatase 83 (38-126) U/L Total Protein 7.6 (6.3-8.2) g/dL Albumin 4.7 (3.5-5.0) g/dL Current Medications Generic Name Dose Route Start Last Admin Trade Name Freq PRN Reason Stop Dose Admin Acetaminophen 650 mg 07/11/21 18:02 Acetaminophen Tab 325 Mg Tab PO Q6HR PRN Mild Pain or Fever > 100.5 Aspirin 325 mg 07/12/21 09:00 Aspirin 325 Mg Tab PO DAILY [facility] Atorvastatin Calcium 20 mg 07/12/21 09:00 Atorvastatin 20 Mg Tab PO DAILY [facility] Citalopram Hydrobromide 20 mg 07/12/21 09:00 Citalopram Hydrobromide 20 Mg Tab PO DAILY [facility] Heparin Sodium (Porcine) 5,000 unit 07/12/21 08:00 Heparin Sodium,Porcine/Pf 5,000 Unit/0.5 Ml Syringe SQ Q8HR [facility] Lisinopril 20 mg 07/12/21 09:00 Lisinopril 20 Mg Tab PO DAILY [facility] Morphine Sulfate 4 mg 07/11/21 18:02 07/11/21 18:26 Morphine Sulfate 4 Mg/Ml Syringe IV 4 mg Q4HR PRN Administration Severe Pain Naloxone HCl 0.2 mg 07/11/21 18:02 Naloxone 0.4 Mg/Ml 1 Ml Vial IV Q2M PRN Opioid Reversal Intake and Output 07/11/21 07/12/21 07/12/21 22:59 06:59 14:59 Other: Weight 89.811 kg 07/11/21 16:00 07/11/21 16:46
--- NOTE | 2021-07-12 12:18 | P.STRESS ---
- Stress Test Note Stress Test Results/Findings: Exam Performed: stress echo exercise Exam Date: 07/12/21 Reason for Exam: cp Height: 5 ft 6 in Weight: 89.81 kg Protocol: STRESS ECHO Stage: II Duration of Exercise: 5.05 Resting Heart Rate: 64 Resting Blood Pressure: 151/83 Maximum Achieved Heart Rate: 153 Maximum Achieved Blood Pressure: 175/79 85% PMHR: 148 100% PMHR: 174 METS: 4.4 Technologist Comment: Stress Test Results/Findings: Baseline 12-lead EKG shows sinus rhythm normal [place] narrow QRS normal ST segments Patient exercised on a Akash protocol for 5 minutes. She is quite short of breath at peak exercise Peak heart rate 146 beats a minute The blood pressure 175/79 mmHg No ECG entrance for ischemia No arrhythmias Baseline 2-D echo may showed normal LV systolic function without segmental wall motion abnormalities At peak exercise there was excellent augmentation of overall LV contractility No wall motion abnormalities noted @Recovery regional global LV systolic function Normal Impression Short of breath within 5 minutes of exercise No ECG or echocardiographic evidence for ischemia at this low workload level
--- NOTE | 2021-07-12 13:10 | P.DS ---
Providers Date of admission: 07/11/21 18:02 Expected date of discharge: 07/12/21 Attending physician: Jona Green MD Consults: 07/11/21 18:02 Consult Physician Routine Consulting Provider: Aydin Samano Consult Reason/Comments: CP rule out Do you want consulting provider notified?: Yes Primary care physician: Gavin Rothman [facility] Course: Discharge Diagnosis: Atypical chest pain Generalized Anxiety Disorder HTN Hospital Course: Patient is a 46-year-old female with a history of hypertension, early coronary artery disease in her family, and tobacco abuse who presented with complaint of chest pain. In the ER she underwent an extensive evaluation. Initial troponin was negative. Initial EKG was nonischemic. She was admitted for chest pain rule out. She was seen by cardiology and repeat troponin was negative. She underwent exercise stress echo which did not reveal any signs of ischemia, though she had a low exercise tolerance. She is determined stable for discharge home. She does feel that her anxiety is worsening. She has a positive lumbar for this. We discussed adding the options of therapy and she was given 2 different recommendations for therapist. She will also follow with cardiology for further outpatient testing including possible Holter monitor. No medication changes were made at the time of discharge. Patient seen and examined at bedside. Currently chest pain-free and feels rather anxious. Vital signs reviewed and stable. General: non toxic, no distress, appears at stated age Derm: warm, dry Head: atraumatic, normocephalic, symmetric Eyes: EOMI, no lid lag, anicteric sclera Mouth: no lip lesion, mucus membranes moist Cardiovascular: S1S2 reg, no murmur, positive posterior tibial pulse bilateral, Lungs: CTA bilateral, no rhonchi, no rales , no accessory muscle use Abdominal: soft, nontender to palpation, no guarding, no appreciable organomegaly Ext: no gross muscle atrophy, no edema, no contractures Neuro: CN II-XI grossly intact, no focal neuro deficits Psych: Alert, oriented, anxious A total of 25 minutes of time were spent preparing this complex discharge summary . Patient Condition at Discharge: Stable Plan - Discharge Summary Discharge Rx Participant: No New Discharge Prescriptions: Continue lisinopriL 20 mg PO DAILY 30 Days tab Citalopram Hydrobromide [CeleXA] 20 mg PO DAILY Atorvastatin [Lipitor] 20 mg PO DAILY Aspirin EC [Ecotrin Low Dose] 81 mg PO DAILY Discharge Medication List lisinopriL 20 mg PO DAILY 30 Days tab 05/25/20 [Rx] Citalopram Hydrobromide [CeleXA] 20 mg PO DAILY 06/08/21 [History] Aspirin EC [Ecotrin Low Dose] 81 mg PO DAILY 06/28/21 [History] Atorvastatin [Lipitor] 20 mg PO DAILY 06/28/21 [History] Follow up Appointment(s)/Referral(s): Gonzalo Robbins DO [STAFF PHYSICIAN] - 2 Weeks Gavin Mcdonald MD [Primary Care Provider] - 1-2 days Patient Instructions/Handouts: Anxiety (GEN) Activity/Diet/Wound Care/Special Instructions: Activity: as tolerated Diet: Regular Special Instructions: [facility] (Therapy) [facility] [address] [place] [address] [facility] (Therapy) [place] [address] [place] [address] Discharge Disposition: HOME SELF-CARE
--- NOTE | 2021-07-13 15:36 | EST ---
Stress Test Results/Findings: Exam Performed: stress echo exercise Exam Date: 07/12/21 Reason for Exam: cp Height: 5 ft 6 in Weight: 89.81 kg Protocol: STRESS ECHO Stage: II Duration of Exercise: 5.05 Resting Heart Rate: 64 Resting Blood Pressure: 151/83 Maximum Achieved Heart Rate: 153 Maximum Achieved Blood Pressure: 175/79 85% PMHR: 148 100% PMHR: 174 METS: 4.4 Technologist Comment: Stress Test Results/Findings: Baseline 12-lead EKG shows sinus rhythm normal AK narrow QRS normal ST segments Patient exercised on a Akash protocol for 5 minutes. She is quite short of breath at peak exercise Peak heart rate 146 beats a minute The blood pressure 175/79 mmHg No ECG entrance for ischemia No arrhythmias Baseline 2-D echo may showed normal LV systolic function without segmental wall motion abnormalities At peak exercise there was excellent augmentation of overall LV contractility No wall motion abnormalities noted @Recovery regional global LV systolic function Normal Impression Short of breath within 5 minutes of exercise No ECG or echocardiographic evidence for ischemia at this low workload level MTDD
== END 2021-07-12 13:37 | disposition home or self-care (01) ==
LOC: EC 15:38 → 6NMEDSUR 18:02 → 3SCARD 07-12 08:07
PROVIDERS: ADMIT Hospitalist; ATTEND Hospitalist
DX: R07.2 Precordial pain (principal); F41.1 Generalized anxiety disorder; I10 Essential (primary) hypertension; F17.200 Nicotine dependence, unspecified, uncomplicated; R00.1 Bradycardia, unspecified; Z20.822 Contact with and (suspected) exposure to COVID-19; R06.02 Shortness of breath; R20.0 Anesthesia of skin; R11.2 Nausea with vomiting, unspecified; R61 Generalized hyperhidrosis; Z71.6 Tobacco abuse counseling; F32.A Depression, unspecified; F10.10 Alcohol abuse, uncomplicated; I25.10 Atherosclerotic heart disease of native coronary artery without angina pectoris; I25.2 Old myocardial infarction; D75.1 Secondary polycythemia; R91.8 Other nonspecific abnormal finding of lung field; Z79.899 Other long term (current) drug therapy; Z79.82 Long term (current) use of aspirin; Z86.14 Personal history of Methicillin resistant Staphylococcus aureus infection; Z82.5 Family history of asthma and other chronic lower respiratory diseases; Z82.49 Family history of ischemic heart disease and other diseases of the circulatory system
CPT/HCPCS: 99285; 96376 ×2; 96372; 96374; 96375; 36415; 93005; 93351; 85379; 80053; 83690; 83735; 84484 ×2; 85025; 85610; 85730; 87635; 71046; G0378 ×2; J2270 ×2; J2405; J1644

== ENCOUNTER 2021-08-18 17:15 | Emergency (ER) | payer BC ==
[2021-08-18 17:20] VITALS: TEMP 97.8
--- NOTE | 2021-08-18 17:31 | ED ---
General Adult HPI - General Source: patient Mode of arrival: ambulatory Limitations: no limitations <Jacek Lindquist - Last Filed: 08/18/21 17:33> <Dany Sheppard - Last Filed: 08/19/21 03:32> - General Chief complaint: Psychiatric Symptoms Stated complaint: Petition Time Seen by Provider: 08/18/21 17:23 - History of Present Illness Initial comments: Dictation was produced using [employer] dictation software. please excuse any grammatical, word or spelling errors. Chief Complaint: 46-year-old female presents emergency department for suicidal statements History of Present Illness: Patient is a 46-year-old female she allegedly called 911. She states that she wanted to hurt herself. Enforcement arrived at her house and she began saying that she doesn't want to live. Patient was drinking alcohol today. Patient petitioned by [employer] issues been cooperative and come to the emergency department.She denies feeling suicidal or homicidal. She denies ever trying to hurt herself in the past. She understands that she told [employer] police that she wanted to hurt herself. Patient states he drank heavily today. Patient denies daily alcohol use. The ROS documented in this emergency department record has been reviewed and confirmed by me. Those systems with pertinent positive or negative responses have been documented in the HPI. All other systems are other negative and/or noncontributory. PHYSICAL EXAM: General Impression: Alert and oriented x3, not in acute distress HEENT: Normocephalic atraumatic, extra-ocular movements intact, pupils equal and reactive to light bilaterally, mucous membranes moist. Cardiovascular: Heart regular rate and rhythm Chest: Able to complete full sentences, no retractions, no tachypnea Musculoskeletal: Pulses present and equal in all extremities, no peripheral edema Motor: no focal deficits noted Neurological: CN II-XII grossly intact, no focal motor or sensory deficits noted Skin: Intact with no visualized rashes Psych: Normal affect and mood ED course: 46-year-old female presents emergency department for suicidal statements. She denies suicidality at this time. She had several alcoholic beverages today. Breath alcohol test is 232. Patient pending sobriety and EPS evaluation. (Jacek Lindquist) - Related Data Home Medications Medication Instructions Recorded Confirmed Citalopram Hydrobromide [CeleXA] 20 mg PO DAILY 06/08/21 08/18/21 Aspirin EC [Ecotrin Low Dose] 81 mg PO DAILY 06/28/21 08/18/21 Atorvastatin [Lipitor] 20 mg PO DAILY 06/28/21 08/18/21 Previous Rx's Medication Instructions Recorded lisinopriL 20 mg PO DAILY 30 Days tab 05/25/20 Allergies Allergy/AdvReac Type Severity Reaction Status Date / Time No Known Allergies Allergy Verified 08/18/21 21:44 Review of Systems ROS Other: All systems not noted in ROS Statement are negative. <Jacek Lindquist - Last Filed: 08/18/21 17:33> ROS Other: All systems not noted in ROS Statement are negative. <Dany Sheppard - Last Filed: 08/19/21 03:32> ROS Statement: Those systems with pertinent positive or pertinent negative responses have been documented in the HPI. Past Medical History Past Medical History: Hypertension Additional Past Medical History / Comment(s): Depression History of Any Multi-Drug Resistant Organisms: MRSA Date of last positivie culture/infection: 08/04/2017 MDRO Source:: nose Past Surgical History: Tonsillectomy Past Anesthesia/Blood Transfusion Reactions: No Reported Reaction Past Psychological History: Anxiety, Depression Smoking Status: Current every day smoker Past Alcohol Use History: Occasional Past Drug Use History: Marijuana - Past Family History Father Family Medical History: CVA/TIA Additional Family Medical History / Comment(s): aneurisym x 2, then a strok 5 years ago Mother Family Medical History: No Reported History Family Additional Family Medical History / Comment(s): Premature CAD in her uncle maternal side <Jacek Lindquist - Last Filed: 08/18/21 17:33> General Exam Limitations: no limitations <Jacek Lindquist - Last Filed: 08/18/21 17:33> Course Vital Signs 08/18/21 08/18/21 17:17 21:00 Temperature 97.8 F Pulse Rate 80 75 Respiratory 17 19 Rate Blood Pressure 143/95 124/82 O2 Sat by Pulse 97 97 Oximetry Disposition <Jacek Lindquist - Last Filed: 08/18/21 17:33> Is patient prescribed a controlled substance at d/c from ED?: No <Dany Sheppard - Last Filed: 08/19/21 03:32> Clinical Impression: Alcohol intoxication Disposition: HOME SELF-CARE Condition: Good Instructions (If sedation given, give patient instructions): Alcohol Intoxication (ED) Referrals: None,Stated [REFERRING] - 1-2 days
[2021-08-18] MEDS ORDERED: ONDANSETRON 4 MG/2 ML VIAL IVP STA (21:47)
[2021-08-18] MEDS ORDERED: ONDANSETRON ODT 4 MG TAB PO STA (21:52)
[2021-08-18] MEDS ORDERED: LORazepam 1 MG TAB PO STA ×2 (23:13→23:52)
[2021-08-19 04:29] VITALS: BP 124/74; PULSE 74; RESP 20
== END 2021-08-19 04:27 | disposition home or self-care (01) ==
LOC: EC 17:15
DX: F10.129 Alcohol abuse with intoxication, unspecified (principal); I10 Essential (primary) hypertension; F32.A Depression, unspecified; F41.9 Anxiety disorder, unspecified; F17.200 Nicotine dependence, unspecified, uncomplicated; F12.90 Cannabis use, unspecified, uncomplicated
CPT/HCPCS: 82075; 99284

== ENCOUNTER 2021-08-24 21:31 | Emergency (ER) | payer BC ==
[2021-08-24 21:40] VITALS: RESP 18; TEMP 98.2
--- NOTE | 2021-08-24 21:53 | ED ---
Chest Pain HPI - General Chief Complaint: Chest Pain Stated Complaint: Chest Pain Time Seen by Provider: 08/24/21 21:33 Source: EMS, RN notes reviewed, old records reviewed Mode of arrival: EMS Limitations: no limitations - History of Present Illness Initial Comments: This is a 46-year-old female to the ER today for evaluation. Patient presents today for evaluation regarding significant shortness of breath and weakness. Patient has no current chest pain but is that shortness of breath before believe this to her lungs she is history of smoking and has been smoking for a while. Patient has no chest pain. No travel history no sick contacts. No fevers. Different hospitalizations for different things including mental health. MD Complaint: chest pain, other (SOB) -: hour(s) Onset: during rest Pain Location: substernal, left chest Pain Radiation: none Severity: moderate Severity scale (1-10): 4 Quality: tightness Consistency: constant Improves With: nothing Worsens With: nothing Anginal Symptoms: dyspnea Other Symptoms: cough, palpitations Treatments Prior to Arrival: none - Related Data Home Medications Medication Instructions Recorded Confirmed Citalopram Hydrobromide [CeleXA] 20 mg PO DAILY 06/08/21 08/24/21 Aspirin EC [Ecotrin Low Dose] 81 mg PO DAILY 06/28/21 08/24/21 Atorvastatin [Lipitor] 20 mg PO DAILY 06/28/21 08/24/21 Previous Rx's Medication Instructions Recorded lisinopriL 20 mg PO DAILY 30 Days tab 05/25/20 Allergies Allergy/AdvReac Type Severity Reaction Status Date / Time No Known Allergies Allergy Verified 08/24/21 23:20 Review of Systems ROS Statement: Those systems with pertinent positive or pertinent negative responses have been documented in the HPI. ROS Other: All systems not noted in ROS Statement are negative. EKG Findings - EKG Comments: EKG Findings:: EKG shows sinus rhythm 70 SD 170 QRS 72 QTC 457 Past Medical History Past Medical History: Hypertension Additional Past Medical History / Comment(s): Depression History of Any Multi-Drug Resistant Organisms: MRSA Date of last positivie culture/infection: 08/04/2017 MDRO Source:: nose Past Surgical History: Tonsillectomy Past Anesthesia/Blood Transfusion Reactions: No Reported Reaction Past Psychological History: Anxiety, Depression Smoking Status: Current every day smoker Past Alcohol Use History: Occasional - Past Family History Father Family Medical History: CVA/TIA Additional Family Medical History / Comment(s): aneurisym x 2, then a strok 5 years ago Mother Family Medical History: No Reported History Family Additional Family Medical History / Comment(s): Premature CAD in her uncle maternal side General Exam Limitations: no limitations General appearance: alert, in no apparent distress, anxious Head exam: Present: atraumatic, normocephalic, normal inspection Eye exam: Present: normal appearance, PERRL, EOMI. Absent: scleral icterus, conjunctival injection, periorbital swelling ENT exam: Present: normal exam, mucous membranes moist Neck exam: Present: normal inspection. Absent: tenderness, meningismus, lymphadenopathy Respiratory exam: Present: wheezes. Absent: respiratory distress, rales, rhonchi, stridor Cardiovascular Exam: Present: regular rate, normal rhythm, normal heart sounds. Absent: systolic murmur, diastolic murmur, rubs, gallop, clicks GI/Abdominal exam: Present: soft, normal bowel sounds. Absent: distended, tenderness, guarding, rebound, rigid Extremities exam: Present: normal inspection, full ROM, normal capillary refill. Absent: tenderness, pedal edema, joint swelling, calf tenderness Back exam: Present: normal inspection Neurological exam: Present: alert, oriented X3, CN II-XII intact Psychiatric exam: Present: normal affect, normal mood Skin exam: Present: warm, dry, intact, normal color. Absent: rash Course Vital Signs 08/24/21 08/24/21 08/24/21 21:33 22:58 23:14 Temperature 98.2 F Pulse Rate 96 74 70 Respiratory 18 Rate Blood Pressure 123/86 O2 Sat by Pulse 99 Oximetry - Reevaluation(s) Reevaluation #1: 08/24/21 22:06 medical record is reviewed Reevaluation #2: 08/25/21 00:07 Patient symptoms improved here in the ER Reevaluation #3: 08/25/21 00:07 Patient informed of results and questions have been answered Chest Pain MDM - MDM 46 female to the emergency room today. Patient presents today for evaluation regards to chest pain. Shortness of breath. Patient has mild asthma exac erbation with history of smoking, chest pain but troponin negative. Chest x-ray negative patient can be discharged home Disposition Clinical Impression: Chest pain, Acute exacerbation of COPD with asthma Disposition: HOME SELF-CARE Condition: Good Instructions (If sedation given, give patient instructions): Asthma (ED), Chest Pain (ED) Is patient prescribed a controlled substance at d/c from ED?: No Referrals: Gavin Mcdonald MD [Primary Care Provider] - 1-2 days
[2021-08-24] MEDS ORDERED: IPRATROPIUM-ALBUTEROL 3 ML NEB INHALATION STA (21:58)
[2021-08-24] MEDS ORDERED: SODIUM CHLORIDE 0.9% 1,000 ML IV STA (21:58)
[2021-08-24] MEDS ORDERED: SODIUM CHLORIDE 0.9% 500 ML 500 ML IV STA (21:58)
[2021-08-24 23:15] LABS: Basophils # (A) 0.1 k/uL (0-0.2); Basophils % (A) 1 %; Eosinophils # (A) 0.5 k/uL (0-0.7); Eosinophils % (A) 6 %; HCT 49.5 % (34.0-46.0); HGB 16.5 gm/dL (11.4-16.0); Lymphocytes # (A) 2.8 k/uL (1.0-4.8); Lymphocytes % (A) 32 %; MCH 32.6 pg (25.0-35.0); MCHC 33.4 g/dL (31.0-37.0); MCV 97.7 fL (80.0-100.0); Mean Platelet Volume 7.4; Monocytes # (A) 0.4 k/uL (0-1.0); Monocytes % (A) 4 %; Neutrophils # (A) 4.8 k/uL (1.3-7.7); Neutrophils % (A) 55 %; Platelet Count 230 k/uL (150-450); RBC 5.07 m/uL (3.80-5.40); RDW 12.8 % (11.5-15.5); WBC 8.7 k/uL (3.8-10.6)
[2021-08-24] MEDS ORDERED: ONDANSETRON 4 MG/2 ML VIAL IVP STA (23:17)
[2021-08-24] MEDS ORDERED: LORazepam 2 MG/ML INJ IV STA (23:17)
[2021-08-24 23:30] LABS: INR 0.9 (<1.2); Partial Thromboplastin Time 23.7 sec (22.0-30.0)
--- NOTE | 2021-08-24 23:34 | XR ---
EXAMINATION TYPE: XR chest 1V portable DATE OF EXAM: 08/24/2021 COMPARISON: 07/11/2021 HISTORY: Short of breath TECHNIQUE: Single view FINDINGS: Heart is normal. Lungs are clear of infiltrate. There is no heart failure. There are chest leads. Costophrenic angles are clear. IMPRESSION: No active cardiopulmonary disease. Normal heart. No change.
[2021-08-24 23:49] LABS: ALT 21 U/L (4-34); AST 23 U/L (14-36); African American GFR (CKD) >90 (>60 ml/min/1.73 sqM); Albumin 4.5 g/dL (3.5-5.0); Alkaline Phosphatase 70 U/L (38-126); Anion Gap 10 mmol/L; Blood Urea Nitrogen 8 mg/dL (7-17); Calcium 9.4 mg/dL (8.4-10.2); Carbon Dioxide 24 mmol/L (22-30); Chloride 114 mmol/L (98-107); Glucose 109 mg/dL (74-99); Magnesium 2.3 mg/dL (1.6-2.3); Non-African American GFR(CKD) >90 (>60 ml/min/1.73 sqM); Potassium 3.8 mmol/L (3.5-5.1); Sodium 148 mmol/L (137-145); Total Bilirubin 0.3 mg/dL (0.2-1.3); Total Protein 7.2 g/dL (6.3-8.2)
[2021-08-24 23:54] LABS: C Reactive Protein <0.5 mg/dL (<1.0)
[2021-08-25] MEDS ORDERED: DEXAMETHASONE SOD PHOSPHATE 10 MG/ML 1 ML VIAL IVP STA (00:07)
[2021-08-25 00:23] VITALS: BP 124/76; PULSE 88
== END 2021-08-25 00:51 | disposition home or self-care (01) ==
LOC: EC 21:31
DX: J44.1 Chronic obstructive pulmonary disease with (acute) exacerbation (principal); I10 Essential (primary) hypertension; F32.A Depression, unspecified; F41.9 Anxiety disorder, unspecified; F17.200 Nicotine dependence, unspecified, uncomplicated; Z79.82 Long term (current) use of aspirin; Z79.899 Other long term (current) drug therapy
CPT/HCPCS: 36415; 94640; 93005; 83880; 80053; 83735; 84484; 85025; 85610; 85730; 86140; 71045; 99285; 96374; 96375 ×2; 96361; J2060; J1100; J2405

== ENCOUNTER 2021-09-28 11:48 | Emergency (ER) | payer BC ==
[2021-09-28 11:52] VITALS: RESP 18; TEMP 97.1
--- NOTE | 2021-09-28 12:14 | ED ---
General Adult HPI - General Chief complaint: Shortness of Breath Stated complaint: MINESH Time Seen by Provider: 09/28/21 12:04 Source: patient, RN notes reviewed, old records reviewed Mode of arrival: wheelchair Limitations: no limitations - History of Present Illness Initial comments: 46-year-old female presenting for evaluation of chest pain, dyspnea. Patient states she has minimal chest pain which does radiate into her right arm. She reports exertional dyspnea. She states she had recent hospital admission for chest pain evaluation. She believes that she had a heart attack but states they did not do a heart catheterization or place any stents. She is on aspirin daily. She is a current smoker. Pain and shortness of breath began approximate ly 2 hours prior to arrival. Patient additionally states she had a fever of 101 at home and moderate cough. - Related Data Home Medications Medication Instructions Recorded Confirmed Citalopram Hydrobromide [CeleXA] 20 mg PO DAILY 06/08/21 09/28/21 Aspirin EC [Ecotrin Low Dose] 81 mg PO DAILY 06/28/21 09/28/21 Atorvastatin [Lipitor] 20 mg PO DAILY 06/28/21 09/28/21 Acamprosate Calcium [Campral] 333 mg PO BID 09/28/21 09/28/21 busPIRone HCl [Buspar] 5 mg PO DAILY 09/28/21 09/28/21 Previous Rx's Medication Instructions Recorded lisinopriL 20 mg PO DAILY 30 Days tab 05/25/20 Allergies Allergy/AdvReac Type Severity Reaction Status Date / Time No Known Allergies Allergy Verified 09/28/21 13:30 Review of Systems ROS Statement: Those systems with pertinent positive or pertinent negative responses have been documented in the HPI. ROS Other: All systems not noted in ROS Statement are negative. Past Medical History Past Medical History: Hypertension Additional Past Medical History / Comment(s): Depression History of Any Multi-Drug Resistant Organisms: MRSA Date of last positivie culture/infection: 08/04/2017 MDRO Source:: nose Past Surgical History: Tonsillectomy Past Anesthesia/Blood Transfusion Reactions: No Reported Reaction Past Psychological History: Anxiety, Depression Smoking Status: Current every day smoker Past Alcohol Use History: Occasional Past Drug Use History: None Reported - Past Family History Father Family Medical History: CVA/TIA Additional Family Medical History / Comment(s): aneurisym x 2, then a strok 5 y ears ago Mother Family Medical History: No Reported History Family Additional Family Medical History / Comment(s): Premature CAD in her uncle maternal side General Exam Limitations: no limitations General appearance: alert, in no apparent distress Head exam: Present: atraumatic, normocephalic Eye exam: Present: normal appearance. Absent: PERRL, EOMI ENT exam: Present: normal exam Neck exam: Present: normal inspection. Absent: tenderness, meningismus Respiratory exam: Present: normal lung sounds bilaterally. Absent: respiratory distress, wheezes Cardiovascular Exam: Present: regular rate, normal rhythm GI/Abdominal exam: Present: soft. Absent: distended, tenderness, guarding Extremities exam: Present: normal inspection, normal capillary refill. Absent: pedal edema, calf tenderness Neurological exam: Present: alert, oriented X3, CN II-XII intact. Absent: motor sensory deficit Psychiatric exam: Present: normal affect, normal mood Skin exam: Present: warm, dry, intact. Absent: cyanosis, diaphoretic Course Vital Signs 09/28/21 09/28/21 09/28/21 11:49 12:06 13:00 Temperature 97.1 F L Pulse Rate 102 H 79 78 Respiratory 18 18 18 Rate Blood Pressure 142/95 135/92 116/84 O2 Sat by Pulse 96 96 97 Oximetry 09/28/21 15:24 Temperature Pulse Rate 80 Respiratory 18 Rate Blood Pressure 112/74 O2 Sat by Pulse 96 Oximetry EKG Findings - EKG Comments: EKG Findings:: EKG: Sinus rhythm rate of 78, TN interval 156, QRS duration 79, QTC 416, no ST segment elevation. T waves are upright. Medical Decision Making - Medical Decision Making 46-year-old female with dyspnea, and atypical chest pain. No abdominal pain. No vomiting. No fever. Patient has normal CBC, normal CMP, negative initial troponin, mildly elevated lactic acid. This does respond to fluids. Patient h as stress testing on recent admission which was negative. Her EKG is sinus rhythm without ST segment elevation. I did offer observation versus repeat troponin. Patient agrees to repeat troponin emergency department. This is also negative. She's given strict return parameters and will follow-up with her primary care physician. - Lab Data Result diagrams: 09/28/21 12:24 09/28/21 12:24 Lab Results 09/28/21 09/28/21 09/28/21 Range/Units 12:24 12:24 12:24 WBC 9.4 (3.8-10.6) k/uL RBC 4.90 (3.80-5.40) m/uL Hgb 16.3 H (11.4-16.0) gm/dL Hct 47.8 H (34.0-46.0) % MCV 97.4 (80.0-100.0) fL MCH 33.2 (25.0-35.0) pg MCHC 34.0 (31.0-37.0) g/dL RDW 13.9 (11.5-15.5) % Plt Count 303 (150-450) k/uL MPV 7.2 Neutrophils % 56 % Lymphocytes % 32 % Monocytes % 6 % Eosinophils % 2 % Basophils % 1 % Neutrophils # 5.3 (1.3-7.7) k/uL Lymphocytes # 3.0 (1.0-4.8) k/uL Monocytes # 0.6 (0-1.0) k/uL Eosinophils # 0.2 (0-0.7) k/uL Basophils # 0.1 (0-0.2) k/uL PT 10.2 (9.0-12.0) sec INR 0.9 (<1.2) APTT 23.0 (22.0-30.0) sec D-Dimer 0.43 (<0.60) mg/L FEU Sodium 140 (137-145) mmol/L Potassium 4.2 (3.5-5.1) mmol/L Chloride 108 H (98-107) mmol/L Carbon Dioxide 19 L (22-30) mmol/L Anion Gap 13 mmol/L BUN 16 (7-17) mg/dL Creatinine 0.74 (0.52-1.04) mg/dL Est GFR (CKD-EPI)AfAm >90 (>60 ml/min/1.73 sqM) Est GFR (CKD-EPI)NonAf >90 (>60 ml/min/1.73 sqM) Glucose 79 (74-99) mg/dL Lactic Ac Sepsis Rflx Plasma Lactic Acid Quan (0.7-2.0) mmol/L Calcium 9.7 (8.4-10.2) mg/dL Magnesium 1.9 (1.6-2.3) mg/dL Total Bilirubin 0.5 (0.2-1.3) mg/dL AST 26 (14-36) U/L ALT 24 (4-34) U/L Alkaline Phosphatase 80 (38-126) U/L Troponin I (0.000-0.034) ng/mL NT-Pro-B Natriuret Pep pg/mL Total Protein 7.4 (6.3-8.2) g/dL Albumin 4.6 (3.5-5.0) g/dL Coronavirus (PCR) (Not Detectd) 09/28/21 09/28/21 09/28/21 Range/Units 12:24 12:24 12:24 WBC (3.8-10.6) k/uL RBC (3.80-5.40) m/uL Hgb (11.4-16.0) gm/dL Hct (34.0-46.0) % MCV (80.0-100.0) fL MCH (25.0-35.0) pg MCHC (31.0-37.0) g/dL RDW (11.5-15.5) % Plt Count (150-450) k/uL MPV Neutrophils % % Lymphocytes % % Monocytes % % Eosinophils % % Basophils % % Neutrophils # (1.3-7.7) k/uL Lymphocytes # (1.0-4.8) k/uL Monocytes # (0-1.0) k/uL Eosinophils # (0-0.7) k/uL Basophils # (0-0.2) k/uL PT (9.0-12.0) sec INR (<1.2) APTT (22.0-30.0) sec D-Dimer (<0.60) mg/L FEU Sodium (137-145) mmol/L Potassium (3.5-5.1) mmol/L Chloride (98-107) mmol/L Carbon Dioxide (22-30) mmol/L Anion Gap mmol/L BUN (7-17) mg/dL Creatinine (0.52-1.04) mg/dL Est GFR (CKD-EPI)AfAm (>60 ml/min/1.73 sqM) Est GFR (CKD-EPI)NonAf (>60 ml/min/1.73 sqM) Glucose (74-99) mg/dL Lactic Ac Sepsis Rflx Plasma Lactic Acid Quan 3.2 H* (0.7-2.0) mmol/L Calcium (8.4-10.2) mg/dL Magnesium (1.6-2.3) mg/dL Total Bilirubin (0.2-1.3) mg/dL AST (14-36) U/L ALT (4-34) U/L Alkaline Phosphatase (38-126) U/L Troponin I <0.012 (0.000-0.034) ng/mL NT-Pro-B Natriuret Pep 25 pg/mL Total Protein (6.3-8.2) g/dL Albumin (3.5-5.0) g/dL Coronavirus (PCR) (Not Detectd) 09/28/21 09/28/21 09/28/21 Range/Units 12:24 13:03 15:24 WBC (3.8-10.6) k/uL RBC (3.80-5.40) m/uL Hgb (11.4-16.0) gm/dL Hct (34.0-46.0) % MCV (80.0-100.0) fL MCH (25.0-35.0) pg MCHC (31.0-37.0) g/dL RDW (11.5-15.5) % Plt Count (150-450) k/uL MPV Neutrophils % % Lymphocytes % % Monocytes % % Eosinophils % % Basophils % % Neutrophils # (1.3-7.7) k/uL Lymphocytes # (1.0-4.8) k/uL Monocytes # (0-1.0) k/uL Eosinophils # (0-0.7) k/uL Basophils # (0-0.2) k/uL PT (9.0-12.0) sec INR (<1.2) APTT (22.0-30.0) sec D-Dimer (<0.60) mg/L FEU Sodium (137-145) mmol/L Potassium (3.5-5.1) mmol/L Chloride (98-107) mmol/L Carbon Dioxide (22-30) mmol/L Anion Gap mmol/L BUN (7-17) mg/dL Creatinine (0.52-1.04) mg/dL Est GFR (CKD-EPI)AfAm (>60 ml/min/1.73 sqM) Est GFR (CKD-EPI)NonAf (>60 ml/min/1.73 sqM) Glucose (74-99) mg/dL Lactic Ac Sepsis Rflx Y Plasma Lactic Acid Quan (0.7-2.0) mmol/L Calcium (8.4-10.2) mg/dL Magnesium (1.6-2.3) mg/dL Total Bilirubin (0.2-1.3) mg/dL AST (14-36) U/L ALT (4-34) U/L Alkaline Phosphatase (38-126) U/L Troponin I <0.012 (0.000-0.034) ng/mL NT-Pro-B Natriuret Pep pg/mL Total Protein (6.3-8.2) g/dL Albumin (3.5-5.0) g/dL Coronavirus (PCR) Not Detected (Not Detectd) 09/28/21 Range/Units 15:31 WBC (3.8-10.6) k/uL RBC (3.80-5.40) m/uL Hgb (11.4-16.0) gm/dL Hct (34.0-46.0) % MCV (80.0-100.0) fL MCH (25.0-35.0) pg MCHC (31.0-37.0) g/dL RDW (11.5-15.5) % Plt Count (150-450) k/uL MPV Neutrophils % % Lymphocytes % % Monocytes % % Eosinophils % % Basophils % % Neutrophils # (1.3-7.7) k/uL Lymphocytes # (1.0-4.8) k/uL Monocytes # (0-1.0) k/uL Eosinophils # (0-0.7) k/uL Basophils # (0-0.2) k/uL PT (9.0-12.0) sec INR (<1.2) APTT (22.0-30.0) sec D-Dimer (<0.60) mg/L FEU Sodium (137-145) mmol/L Potassium (3.5-5.1) mmol/L Chloride (98-107) mmol/L Carbon Dioxide (22-30) mmol/L Anion Gap mmol/L BUN (7-17) mg/dL Creatinine (0.52-1.04) mg/dL Est GFR (CKD-EPI)AfAm (>60 ml/min/1.73 sqM) Est GFR (CKD-EPI)NonAf (>60 ml/min/1.73 sqM) Glucose (74-99) mg/dL Lactic Ac Sepsis Rflx Plasma Lactic Acid Quan 2.8 H* (0.7-2.0) mmol/L Calcium (8.4-10.2) mg/dL Magnesium (1.6-2.3) mg/dL Total Bilirubin (0.2-1.3) mg/dL AST (14-36) U/L ALT (4-34) U/L Alkaline Phosphatase (38-126) U/L Troponin I (0.000-0.034) ng/mL NT-Pro-B Natriuret Pep pg/mL Total Protein (6.3-8.2) g/dL Albumin (3.5-5.0) g/dL Coronavirus (PCR) (Not Detectd) Disposition Clinical Impression: Chest pain Disposition: HOME SELF-CARE Condition: Fair Instructions (If sedation given, give patient instructions): Chest Pain (ED) Is patient prescribed a controlled substance at d/c from ED?: No Referrals: Gavin Mcdonald MD [Primary Care Provider] - 1-2 days Time of Disposition: 16:14
[2021-09-28] MEDS ORDERED: ASPIRIN 325 MG TAB PO STA (12:28)
[2021-09-28 12:42] LABS: Basophils # (A) 0.1 k/uL (0-0.2); Basophils % (A) 1 %; Eosinophils # (A) 0.2 k/uL (0-0.7); Eosinophils % (A) 2 %; HCT 47.8 % (34.0-46.0); HGB 16.3 gm/dL (11.4-16.0); Lymphocytes % (A) 32 %; MCH 33.2 pg (25.0-35.0); MCV 97.4 fL (80.0-100.0); Mean Platelet Volume 7.2; Monocytes # (A) 0.6 k/uL (0-1.0); Monocytes % (A) 6 %; Neutrophils # (A) 5.3 k/uL (1.3-7.7); Neutrophils % (A) 56 %; Platelet Count 303 k/uL (150-450); RDW 13.9 % (11.5-15.5); WBC 9.4 k/uL (3.8-10.6)
[2021-09-28] MEDS ORDERED: MORPHINE SULFATE 4 MG/ML SYRINGE IVP STA (12:46)
--- NOTE | 2021-09-28 12:49 | XR ---
EXAMINATION TYPE: XR chest 2V DATE OF EXAM: 09/28/2021 COMPARISON: 08/24/2021 HISTORY: Chest pain TECHNIQUE: Frontal and lateral views of the chest are obtained. FINDINGS: There is no focal air space opacity. No evidence for pneumothorax. No pleural effusion. The cardiac silhouette size is within normal limits. The osseous structures are grossly intact. IMPRESSION: 1. No acute cardiopulmonary process.
[2021-09-28 12:58] LABS: ALT 24 U/L (4-34); AST 26 U/L (14-36); African American GFR (CKD) >90 (>60 ml/min/1.73 sqM); Albumin 4.6 g/dL (3.5-5.0); Alkaline Phosphatase 80 U/L (38-126); Anion Gap 13 mmol/L; Blood Urea Nitrogen 16 mg/dL (7-17); Calcium 9.7 mg/dL (8.4-10.2); Carbon Dioxide 19 mmol/L (22-30); Chloride 108 mmol/L (98-107); Glucose 79 mg/dL (74-99); Magnesium 1.9 mg/dL (1.6-2.3); Non-African American GFR(CKD) >90 (>60 ml/min/1.73 sqM); Potassium 4.2 mmol/L (3.5-5.1); Sodium 140 mmol/L (137-145); Total Bilirubin 0.5 mg/dL (0.2-1.3); Total Protein 7.4 g/dL (6.3-8.2)
[2021-09-28 13:02] LABS: INR 0.9 (<1.2)
[2021-09-28 13:03] LABS: Prothrombin Time 10.2 sec (9.0-12.0)
[2021-09-28] MEDS ORDERED: SODIUM CHLORIDE 0.9% 1,000 ML IV ONE (13:05)
[2021-09-28] MEDS ORDERED: MORPHINE SULFATE 2 MG/ML SYRINGE IVP STA (15:44)
[2021-09-28 17:16] VITALS: BP 131/62; PULSE 77
== END 2021-09-28 17:16 | disposition home or self-care (01) ==
LOC: EC 11:48
DX: R07.9 Chest pain, unspecified (principal); Z20.822 Contact with and (suspected) exposure to COVID-19; I10 Essential (primary) hypertension; F32.A Depression, unspecified; F41.9 Anxiety disorder, unspecified; F17.200 Nicotine dependence, unspecified, uncomplicated; Z72.89 Other problems related to lifestyle; Z79.82 Long term (current) use of aspirin
CPT/HCPCS: 36415; 93005; 85379; 83880; 80053; 83605; 83735; 84484; 85025; 85610; 85730; 87635; 71046; 99285; 96374; 96376; 96361 ×2; J2270 ×2

== ENCOUNTER → 2021-11-30 | Outpatient (CLI) | payer BC ==
[2021-11-30 14:35] LABS: Basophils # (A) 0.08 X 10*3/uL (0.00-0.10); Basophils % (A) 0.9 %; Eosinophils # (A) 0.73 X 10*3/uL (0.04-0.35); Eosinophils % (A) 8.3 %; HCT 48.4 % (37.2-46.3); HGB 15.3 g/dL (12.0-15.0); Immature Grans, Automated 0.3 %; Lymphocytes % (A) 28.4 %; MCH 30.8 pg (27.0-32.0); MCHC 31.6 g/dL (32.0-37.0); MCV 97.6 fL (80.0-97.0); Mean Platelet Volume 10.1 fL (9.5-12.2); Monocytes # (A) 0.81 X 10*3/uL (0.20-1.00); Monocytes % (A) 9.2 %; NRBC Per 100 WBC 0 /100 WBCS (0.0-0.0); Neutrophils # (A) 4.65 X 10*3/uL (1.80-7.70); Neutrophils % (A) 52.9 %; Platelet Count 260 X 10*3/uL (140-440); RBC 4.96 X 10*6/uL (4.10-5.20); RDW 12.8 % (11.5-14.5)
[2021-11-30 14:51] LABS: ALT 33 U/L (8-44); AST 20 U/L (13-35); African American GFR (CKD) 102.5 (60.0-200.0); Albumin 4.6 g/dL (3.8-4.9); Albumin/Globulin Ratio 2.09 (1.60-3.17); Alkaline Phosphatase 97 U/L (41-126); BUN/Creat Ratio 17.13 Ratio (12.00-20.00); Blood Urea Nitrogen 13.7 mg/dL (9.0-27.0); Calcium 9.8 mg/dL (8.7-10.3); Carbon Dioxide 25.5 mmol/L (20.0-27.5); Chloride 107 mmol/L (96-109); Chol/HDL Ratio 5.42 Ratio; Globulin 2.2 g/dL (1.6-3.3); Glucose 105 mg/dL (70-110); LDL Cholesterol,Calculated 212.1 mg/dL (0.0-131.0); Non-African American GFR(CKD) 88.4 (60.0-200.0); Potassium 4.9 mmol/L (3.5-5.5); Sodium 141 mmol/L (135-145); Total Protein 6.8 g/dL (6.2-8.2)
== END | disposition home or self-care (01) ==
LOC: LABWHC1 08:26
PROVIDERS: ATTEND Family Medicine
DX: Z00.00 Encounter for general adult medical examination without abnormal findings (principal)
CPT/HCPCS: 36415; 80053; 80061; 83036; 84443; 85025

== ENCOUNTER 2022-10-31 06:46 | Emergency (ER) | payer OTHER, BC ==
[2022-10-31 07:03] VITALS: RESP 18
[2022-10-31] MEDS ORDERED: KETOTIFEN 0.025% OPHTH DROPS 5 ML BTL RIGHT EYE STA (07:14)
--- NOTE | 2022-10-31 07:17 | ED ---
Eye Problem HPI - General Chief complaint: Eye Problems Stated complaint: [facility] - Right Eye Injury Time Seen by Provider: 10/31/22 07:07 Source: patient, RN notes reviewed Mode of arrival: ambulatory Limitations: no limitations - History of Present Illness Initial comments: 47-year-old female presents emergency Department chief complaint right eye pain and irritation. 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 She went to urgent care was placed on erythromycin. Patient follow-up with ophthalmology on Friday was given tobramycin. Patient states that symptoms are worsened she has a follow-up appointment later today states that she's been having a fever which is been concerning. She states she has minimal cough no other reason for her fever. She states she has been having worsening right- sided facial pain. Patient states she does wake up with crusting, drainage of her right eye she states it is red, swollen. - Related Data Home Medications Medication Instructions Recorded Confirmed Citalopram Hydrobromide [CeleXA] 20 mg PO DAILY 06/08/21 09/28/21 Aspirin EC [Ecotrin Low Dose] 81 mg PO DAILY 06/28/21 09/28/21 Atorvastatin [Lipitor] 20 mg PO DAILY 06/28/21 09/28/21 Acamprosate Calcium [Campral] 333 mg PO BID 09/28/21 09/28/21 busPIRone HCl [Buspar] 5 mg PO DAILY 09/28/21 09/28/21 Previous Rx's Medication Instructions Recorded lisinopriL 20 mg PO DAILY 30 Days tab 05/25/20 Amoxic-Pot Clav 875-125Mg 1 tab PO Q12HR #20 tab 10/31/22 [Augmentin 875-125] Allergies Allergy/AdvReac Type Severity Reaction Status Date / Time No Known Allergies Allergy Verified 10/31/22 07:03 Review of Systems ROS Statement: Those systems with pertinent positive or pertinent negative responses have been documented in the HPI. ROS Other: All systems not noted in ROS Statement are negative. Past Medical History Past Medical History: Hypertension Additional Past Medical History / Comment(s): Depression History of Any Multi-Drug Resistant Organisms: MRSA Date of last positivie culture/infection: 08/04/2017 MDRO Source:: nose Past Surgical History: Tonsillectomy Past Anesthesia/Blood Transfusion Reactions: No Reported Reaction Past Psychological History: Anxiety, Depression Smoking Status: Current every day smoker Past Alcohol Use History: Occasional Past Drug Use History: None Reported - Past Family History Father Family Medical History: CVA/TIA Additional Family Medical History / Comment(s): aneurisym x 2, then a strok 5 years ago Mother Family Medical History: No Reported History Family Additional Family Medical History / Comment(s): Premature CAD in her uncle maternal side General Exam Limitations: no limitations General appearance: alert, in no apparent distress Head exam: Present: atraumatic, normocephalic, normal inspection Eye exam: Present: PERRL, EOMI, conjunctival injection (Diffuse right), periorbital swelling (Right), periorbital tenderness (Mild right). Absent: normal appearance, scleral icterus ENT exam: Present: normal exam, normal oropharynx, mucous membranes moist Neck exam: Present: normal inspection, full ROM. Absent: tenderness, meningismus, lymphadenopathy Respiratory exam: Present: normal lung sounds bilaterally. Absent: respiratory distress, wheezes, rales, rhonchi, stridor Cardiovascular Exam: Present: regular rate, normal rhythm, normal heart sounds. Absent: systolic murmur, diastolic murmur, rubs, gallop, clicks Neurological exam: Present: alert Skin exam: Present: warm, dry, intact, normal color. Absent: rash Course Vital Signs 10/31/22 10/31/22 06:57 07:18 Temperature 98.2 F 98.2 F Pulse Rate 76 75 Respiratory 18 18 Rate Blood Pressure 135/84 133/93 O2 Sat by Pulse 96 98 Oximetry Medical Decision Making - Medical Decision Making Was pt. sent in by a medical professional or institution (, PA, CLIENT INSIGHTS CONSULTANT, urgent care, hospital, or care home...) When possible be specific @ -No Did you speak to anyone other than the patient for history (EMS, parent, family, police, friend...)? What history was obtained from this source @ -No Did you review nursing and triage notes (agree or disagree)? Why? @ -I reviewed and agree with nursing and triage notes Were old charts reviewed (outside hosp., previous admission, EMS record, old EKG, old radiological studies, urgent care reports/EKG's, care home records)? Report findings @ -Old laboratory studies reviewed Differential Diagnosis (chest pain, altered mental status, abdominal pain women, abdominal pain men, vaginal bleeding, weakness, fever, dyspnea, syncope, headach e, dizziness, GI bleed, back pain, seizure, CVA, palpatations, mental health, musculoskeletal)? @ -URI, Covid, RSV, influenza, preseptal cellulitis, mono, this list is not all-inclusive EKG interpreted by me (3pts min.). @ -[None X-rays interpreted by me (1pt min.). @ -None done CT interpreted by me (1pt min.). @ -CT orbits shows no acute process is mild swelling noted U/S interpreted by me (1pt. min.). @ -None done What testing was considered but not performed or refused? (CT, X-rays, U/S, labs)? Why? @ -Considered ultrasound of the abdomen as patient has transaminitis though patient has no tenderness. What meds were considered but not given or refused? Why? @ -None Did you discuss the management of the patient with other professionals (professionals i.e. , PA, CLIENT INSIGHTS CONSULTANT, lab, RT, psych nurse, social media executive, patient assessment coordinator, teacher, commissioned police officer, caser)? Give summary @ -No Was smoking cessation discussed for >3mins.? @ -No Was critical care preformed (if so, how long)? @ -No Were there social determinants of health that impacted care today? How? (Homelessness, low income, unemployed, alcoholism, drug addiction, transportation, low edu. Level, literacy, decrease access to med. care, senior living, rehab)? @ -No Was there de-escalation of care discussed even if they declined (Discuss DNR or withdrawal of care, Hospice)? DNR status @ -No What co-morbidities impacted this encounter? (DM, HTN, Smoking, COPD, CAD, Cancer, CVA, ARF, Chemo, Hep., AIDS, mental health diagnosis, sleep apnea, morbid obesity)? @ -None Was patient admitted / discharged? Hospital course, mention meds given and route, prescriptions, significant lab abnormalities, going to OR and other pertinent info. @ -Discharge patient has possible preseptal cellulitis, conjunctivitis. Patient we placed on oral antibiotics patient has a follow-up appointment with ophthalmology today. Patient was informed she has mild transaminitis but has no pain with did discuss follow-up and recheck of this. Undiagnosed new problem with uncertain prognosis? @ -No Drug Therapy requiring intensive monitoring for toxicity (Heparin, Nitro, Insulin, Cardizem)? @ -No Were any procedures done? @ -No Diagnosis/symptom? @ -Preseptal cellulitis Acute, or Chronic, or Acute on Chronic? @ -Acute Uncomplicated (without systemic symptoms) or Complicated (systemic symptoms)? @ -Uncomplicated Side effects of treatment? @ -No Exacerbation, Progression, or Severe Exacerbation? @ -No Poses a threat to life or bodily function? How? (Chest pain, [place], [place], pneumonia, PE, COPD, DKA, ARF, appy, cholecystitis, CVA, Diverticulitis, Homicidal, Suicidal, threat to staff... and all critical care pts) @ -No - Lab Data Result diagrams: 10/31/22 07:35 10/31/22 07:35 Lab Results 10/31/22 10/31/22 10/31/22 Range/Units 07:35 07:35 07:35 WBC 7.5 (3.8-10.6) k/uL RBC 4.65 (3.80-5.40) m/uL Hgb 15.2 (11.4-16.0) gm/dL Hct 43.4 (34.0-46.0) % MCV 93.2 (80.0-100.0) fL MCH 32.6 (25.0-35.0) pg MCHC 34.9 (31.0-37.0) g/dL RDW 13.2 (11.5-15.5) % Plt Count 164 (150-450) k/uL MPV 7.8 Neutrophils % 78 % Lymphocytes % 10 % Monocytes % 8 % Eosinophils % 2 % Basophils % 0 % Neutrophils # 5.9 (1.3-7.7) k/uL Lymphocytes # 0.7 L (1.0-4.8) k/uL Monocytes # 0.6 (0-1.0) k/uL Eosinophils # 0.2 (0-0.7) k/uL Basophils # 0.0 (0-0.2) k/uL Sodium 136 L (137-145) mmol/L Potassium 4.4 (3.5-5.1) mmol/L Chloride 107 (98-107) mmol/L Carbon Dioxide 24 (22-30) mmol/L Anion Gap 5 mmol/L BUN 8 (7-17) mg/dL Creatinine 0.54 (0.52-1.04) mg/dL Est GFR (CKD-EPI)AfAm >90 (>60 ml/min/1.73 sqM) Est GFR (CKD-EPI)NonAf >90 (>60 ml/min/1.73 sqM) Glucose 121 H (74-99) mg/dL Calcium 9.0 (8.4-10.2) mg/dL Total Bilirubin 0.6 (0.2-1.3) mg/dL AST 152 H (14-36) U/L ALT 402 H (4-34) U/L Alkaline Phosphatase 173 H (38-126) U/L Total Protein 6.6 (6.3-8.2) g/dL Albumin 4.0 (3.5-5.0) g/dL Urine Color Yellow Urine Appearance Clear (Clear) Urine pH 5.5 (5.0-8.0) Ur Specific [place] 1.017 (1.001-1.035) Urine Protein Negative (Negative) Urine Glucose (UA) Negative (Negative) Urine Ketones Negative (Negative) Urine Blood Moderate H (Negative) Urine Nitrite Negative (Negative) Urine Bilirubin Negative (Negative) Urine Urobilinogen <2.0 (<2.0) mg/dL Ur Leukocyte Esterase Trace H (Negative) Urine RBC 14 H (0-5) /hpf Urine WBC 2 (0-5) /hpf Ur Squamous Epith Cells 1 (0-4) /hpf Urine Bacteria Rare H (None) /hpf Urine Mucus Rare H (None) /hpf Heterophile Antibody (Negative) Influenza Type A (PCR) (Not Detectd) Influenza Type B (PCR) (Not Detectd) RSV (PCR) (Not Detectd) SARS-CoV-2 (PCR) (Not Detectd) 10/31/22 10/31/22 Range/Units 07:35 07:35 WBC (3.8-10.6) k/uL RBC (3.80-5.40) m/uL Hgb (11.4-16.0) gm/dL Hct (34.0-46.0) % MCV (80.0-100.0) fL MCH (25.0-35.0) pg MCHC (31.0-37.0) g/dL RDW (11.5-15.5) % Plt Count (150-450) k/uL MPV Neutrophils % % Lymphocytes % % Monocytes % % Eosinophils % % Basophils % % Neutrophils # (1.3-7.7) k/uL Lymphocytes # (1.0-4.8) k/uL Monocytes # (0-1.0) k/uL Eosinophils # (0-0.7) k/uL Basophils # (0-0.2) k/uL Sodium (137-145) mmol/L Potassium (3.5-5.1) mmol/L Chloride (98-107) mmol/L Carbon Dioxide (22-30) mmol/L Anion Gap mmol/L BUN (7-17) mg/dL Creatinine (0.52-1.04) mg/dL Est GFR (CKD-EPI)AfAm (>60 ml/min/1.73 sqM) Est GFR (CKD-EPI)NonAf (>60 ml/min/1.73 sqM) Glucose (74-99) mg/dL Calcium (8.4-10.2) mg/dL Total Bilirubin (0.2-1.3) mg/dL AST (14-36) U/L ALT (4-34) U/L Alkaline Phosphatase (38-126) U/L Total Protein (6.3-8.2) g/dL Albumin (3.5-5.0) g/dL Urine Color Urine Appearance (Clear) Urine pH (5.0-8.0) Ur Specific [place] (1.001-1.035) Urine Protein (Negative) Urine Glucose (UA) (Negative) Urine Ketones (Negative) Urine Blood (Negative) Urine Nitrite (Negative) Urine Bilirubin (Negative) Urine Urobilinogen (<2.0) mg/dL Ur Leukocyte Esterase (Negative) Urine RBC (0-5) /hpf Urine WBC (0-5) /hpf Ur Squamous Epith Cells (0-4) /hpf Urine Bacteria (None) /hpf Urine Mucus (None) /hpf Heterophile Antibody Negative (Negative) Influenza Type A (PCR) Not Detected (Not Detectd) Influenza Type B (PCR) Not Detected (Not Detectd) RSV (PCR) Not Detected (Not Detectd) SARS-CoV-2 (PCR) Not Detected (Not Detectd) Disposition Clinical Impression: Transaminitis, Conjunctivitis, Preseptal cellulitis Disposition: HOME SELF-CARE Condition: Stable Instructions (If sedation given, give patient instructions): Periorbital Cellulitis in Adults (ED) Additional Instructions: Please return to the Emergency Department if symptoms worsen or any other concerns. Prescriptions: Amoxic-Pot Clav 875-125Mg [Augmentin 875-125] 1 tab PO Q12HR #20 tab Is patient prescribed a controlled substance at d/c from ED?: No Referrals: Gavin Mcdonald MD [Primary Care Provider] - 1-2 days Time of Disposition: 09:47
[2022-10-31 08:01] LABS: Basophils % (A) 0 %; Eosinophils # (A) 0.2 k/uL (0-0.7); Eosinophils % (A) 2 %; HCT 43.4 % (34.0-46.0); HGB 15.2 gm/dL (11.4-16.0); Lymphocytes # (A) 0.7 k/uL (1.0-4.8); Lymphocytes % (A) 10 %; MCH 32.6 pg (25.0-35.0); MCHC 34.9 g/dL (31.0-37.0); MCV 93.2 fL (80.0-100.0); Mean Platelet Volume 7.8; Monocytes # (A) 0.6 k/uL (0-1.0); Monocytes % (A) 8 %; Neutrophils # (A) 5.9 k/uL (1.3-7.7); Neutrophils % (A) 78 %; Platelet Count 164 k/uL (150-450); RBC 4.65 m/uL (3.80-5.40); RDW 13.2 % (11.5-15.5); WBC 7.5 k/uL (3.8-10.6)
[2022-10-31 08:11] LABS: ALT 402 U/L (4-34); AST 152 U/L (14-36); African American GFR (CKD) >90 (>60 ml/min/1.73 sqM); Alkaline Phosphatase 173 U/L (38-126); Anion Gap 5 mmol/L; Blood Urea Nitrogen 8 mg/dL (7-17); Carbon Dioxide 24 mmol/L (22-30); Chloride 107 mmol/L (98-107); Glucose 121 mg/dL (74-99); Non-African American GFR(CKD) >90 (>60 ml/min/1.73 sqM); Potassium 4.4 mmol/L (3.5-5.1); Sodium 136 mmol/L (137-145); Total Bilirubin 0.6 mg/dL (0.2-1.3); Total Protein 6.6 g/dL (6.3-8.2)
[2022-10-31 08:45] LABS: Appearance,Urine Clear (Clear); Bacteria,Urine Rare /hpf; Bilirubin,Urine Negative (Negative); Blood,Urine Moderate (Negative); Color,Urine Yellow; Glucose,Urine (UA) Negative (Negative); Ketones,Urine Negative (Negative); Leukocyte Esterase,Urine Trace (Negative); Mucus,Urine Rare /hpf; Nitrite,Urine Negative (Negative); PH, Urine 5.5 (5.0-8.0); Protein,Urine Negative (Negative); RBC,Urine 14 /hpf (0-5); Specific Gravity,Urine 1.017 (1.001-1.035); Squamous Epithelial Cell,Urine 1 /hpf (0-4); Urobilinogen,Urine <2.0 mg/dL (<2.0); WBC,Urine 2 /hpf (0-5)
--- NOTE | 2022-10-31 08:45 | CT ---
EXAMINATION TYPE: CT orbits w con DATE OF EXAM: 10/31/2022 COMPARISON: None HISTORY: Something in Rt eye on Joe, still swollen, fever pain CT DLP: 266.2 mGycm Automated exposure control for dose reduction was used. Contrast: None Technique: Axial images 2 mm thick sections. Reconstructed images in the coronal plane. FINDINGS: Skin Piler spaces are normal. Paranasal sinuses and mastoid air cells are clear. Maxillary spine is i ntact. Right septal deviation is present. Orbital floors and medial saucedo of the orbits are intact. Extraocular muscles are unremarkable. Globes are symmetrical. No radiopaque foreign bodies identified . Soft tissue at the level of the orbits appears symmetrical. Small hypodensity which could be air is along the medial aspect left orbit. Series 201 image 23. Tiny hypodensity is along the inferior late ral right globe. Series 201 image 18. Small amount of air could be considered. IMPRESSION: 1. NO DEFINITE RADIOPAQUE FOREIGN BODIES IDENTIFIED. SMALL AMOUNT OF AIR MAY BE UNDER THE EYELIDS. 2. NO SUSPICIOUS CHANGES TO SUGGEST CELLULITIS
[2022-10-31 10:15] VITALS: BP 138/90; PULSE 70; TEMP 98
== END 2022-10-31 10:15 | disposition home or self-care (01) ==
LOC: EC 06:46
DX: R74.01 Elevation of levels of liver transaminase levels (principal); H10.9 Unspecified conjunctivitis; L03.213 Periorbital cellulitis; I10 Essential (primary) hypertension; F41.9 Anxiety disorder, unspecified; F32.A Depression, unspecified; F17.200 Nicotine dependence, unspecified, uncomplicated; Z79.82 Long term (current) use of aspirin; Z79.899 Other long term (current) drug therapy; Z20.822 Contact with and (suspected) exposure to COVID-19
CPT/HCPCS: 36415 ×2; 80053; 85025; 86308; 81001; 87636; 70481; 99284; Q9967

== ENCOUNTER 2022-10-31 21:38 | Emergency (ER) | payer OTHER, BC ==
[2022-10-31 22:45] VITALS: BP 114/78; PULSE 85; RESP 18; TEMP 98.6
--- NOTE | 2022-10-31 23:07 | ED ---
ENT HPI - General Chief complaint: ENT Stated complaint: Eye pain and swelling Time Seen by Provider: 10/31/22 22:49 Source: patient Mode of arrival: ambulatory - History of Present Illness Initial comments: Patient is a 47-year-old female presenting with chief complaint of right eye pain. Patient had a recent eye injury for which she was taking erythromycin ointment, afterwards she also started to experience periorbital redness and swelling. She was seen here this morning for these complaints, she received negative CT, lab work noted some transaminitis, she was started on Augmentin. Patient had an appointment with ophthalmology this afternoon, she was switched to tobramycin eyedrops and told to report back to ER if fevers persisted. Patient had fevers throughout this afternoon, she called the after hours hotline who encouraged her to report to the ER. Patient is complaining of cough and congestion as well. Patient took ibuprofen this afternoon. She is afebrile at this time. - Related Data Home Medications Medication Instructions Recorded Confirmed Citalopram Hydrobromide [CeleXA] 20 mg PO DAILY 06/08/21 09/28/21 Aspirin EC [Ecotrin Low Dose] 81 mg PO DAILY 06/28/21 09/28/21 Atorvastatin [Lipitor] 20 mg PO DAILY 06/28/21 09/28/21 Acamprosate Calcium [Campral] 333 mg PO BID 09/28/21 09/28/21 busPIRone HCl [Buspar] 5 mg PO DAILY 09/28/21 09/28/21 Previous Rx's Medication Instructions Recorded lisinopriL 20 mg PO DAILY 30 Days tab 05/25/20 Amoxic-Pot Clav 875-125Mg 1 tab PO Q12HR #20 tab 10/31/22 [Augmentin 875-125] Allergies Allergy/AdvReac Type Severity Reaction Status Date / Time No Known Allergies Allergy Verified 10/31/22 22:44 Review of Systems ROS Statement: Those systems with pertinent positive or pertinent negative responses have been documented in the HPI. ROS Other: All systems not noted in ROS Statement are negative. Past Medical History Past Medical History: Hypertension Additional Past Medical History / Comment(s): Depression History of Any Multi-Drug Resistant Organisms: MRSA Date of last positivie culture/infection: 08/04/2017 MDRO Source:: nose Past Surgical History: Tonsillectomy Past Anesthesia/Blood Transfusion Reactions: No Reported Reaction Past Psychological History: Anxiety, Depression Smoking Status: Current every day smoker Past Alcohol Use History: Occasional Past Drug Use History: None Reported - Past Family History Father Family Medical History: CVA/TIA Additional Family Medical History / Comment(s): aneurisym x 2, then a strok 5 years ago Mother Family Medical History: No Reported History Family Additional Family Medical History / Comment(s): Premature CAD in her uncle maternal side General Exam Limitations: no limitations General appearance: alert, in no apparent distress Head exam: Present: atraumatic, normocephalic, normal inspection Eye exam: Present: PERRL, EOMI, conjunctival injection, periorbital swelling, periorbital tenderness Pupils: Present: normal accommodation ENT exam: Present: normal oropharynx, mucous membranes moist Neck exam: Present: normal inspection, full ROM Respiratory exam: Present: normal lung sounds bilaterally. Absent: respiratory distress, wheezes, rales, rhonchi, stridor Cardiovascular Exam: Present: regular rate, normal rhythm, normal heart sounds. Absent: systolic murmur, diastolic murmur, rubs, gallop, clicks Neurological exam: Present: alert, oriented X3, CN II-XII intact Psychiatric exam: Present: normal affect, normal mood Skin exam: Present: warm, dry, intact, normal color. Absent: rash Course Vital Signs 10/31/22 22:41 Temperature 98.6 F Pulse Rate 85 Respiratory 18 Rate Blood Pressure 114/78 O2 Sat by Pulse 96 Oximetry Medical Decision Making - Medical Decision Making Was pt. sent in by a medical professional or institution (, PA, ASSOCIATE CHEMIST, urgent care, hospital, or senior care...) When possible be specific @ -No Did you speak to anyone other than the patient for history (EMS, parent, family, police, friend...)? What history was obtained from this source @ -No Did you review nursing and triage notes (agree or disagree)? Why? @ -I reviewed and agree with nursing and triage notes Were old charts reviewed (outside hosp., previous admission, EMS record, old EKG, old radiological studies, urgent care reports/EKG's, senior care records)? Report findings @ -No old charts were reviewed Differential Diagnosis (chest pain, altered mental status, abdominal pain women, abdominal pain men, vaginal bleeding, weakness, fever, dyspnea, syncope, headache, dizziness, GI bleed, back pain, seizure, CVA, palpatations, mental health, musculoskeletal)? @ -Differential includes preseptal cellulitis, orbital cellulitis, conjunctivitis, this is not an all inclusive list EKG interpreted by me (3pts min.). @ -As above X-rays interpreted by me (1pt min.). @ -None done CT interpreted by me (1pt min.). @ -None done U/S interpreted by me (1pt. min.). @ -None done What testing was considered but not performed or refused? (CT, X-rays, U/S, labs)? Why? @ -None What meds were considered but not given or refused? Why? @ -None Did you discuss the management of the patient with other professionals (professionals i.e. , PA, ASSOCIATE CHEMIST, lab, RT, psych nurse, social media executive, silk crepe machine operator, teacher, armoured corps officer, therapeutic case manager)? Give summary @ -No Was smoking cessation discussed for >3mins.? @ -No Was critical care preformed (if so, how long)? @ -No Were there social determinants of health that impacted care today? How? (Homelessness, low income, unemployed, alcoholism, drug addiction, transportation, low edu. Level, literacy, decrease access to med. care, care home, rehab)? @ -No Was there de-escalation of care discussed even if they declined (Discuss DNR or withdrawal of care, Hospice)? DNR status @ -No What co-morbidities impacted this encounter? (DM, HTN, Smoking, COPD, CAD, Cancer, CVA, ARF, Chemo, Hep., AIDS, mental health diagnosis, sleep apnea, morbid obesity)? @ -None Was patient admitted / discharged? Hospital course, mention meds given and route, prescriptions, significant lab abnormalities, going to OR and other pertinent info. @ -Patient is a 47-year-old female presenting with chief complaint of redness and swelling around the right eye. Patient was seen here this morning and start ed on Augmentin, she was seen by her shipsmith this afternoon who told her to report to the ER if fevers persisted. Patient states she continued to have fevers throughout the day. Patient had a negative computed tomography scan earlier today. She is nontoxic-appearing. Extraocular motions are intact, PERRLA, eye is soft on palpation. Patient is instructed to continue antibiotics at home and educated on antipyretics at home. Report back to ER if fevers persist after 24-48 hours. Follow-up with shipsmith. Follow-up with PCP. Report back to ER with any new or worsening symptoms. Discussed return parameters and answered all questions. Patient conveyed verbal understanding and agreed to the plan. I discussed this case in detail with my attending Dr. Rowe Undiagnosed new problem with uncertain prognosis? @ -No Drug Therapy requiring intensive monitoring for toxicity (Heparin, Nitro, Insulin, Cardizem)? @ -No Were any procedures done? @ -No Diagnosis/symptom? @ -Preseptal cellulitis Acute, or Chronic, or Acute on Chronic? @ -Acute Uncomplicated (without systemic symptoms) or Complicated (systemic symptoms)? @ -Uncomplicated Side effects of treatment? @ -No Exacerbation, Progression, or Severe Exacerbation? @ -No Poses a threat to life or bodily function? How? (Chest pain, [place], [place], pneumonia, PE, COPD, DKA, ARF, appy, cholecystitis, CVA, Diverticulitis, Homicidal, Suicidal, threat to staff... and all critical care pts) @ -No Disposition Clinical Impression: Preseptal cellulitis, Conjunctivitis Disposition: HOME SELF-CARE Condition: Good Instructions (If sedation given, give patient instructions): Periorbital Cellulitis in Adults (ED) Additional Instructions: Follow-up with PCP and shipsmith. Report back to ER with any new or worsening symptoms. Take medication as prescribed. Is patient prescribed a controlled substance at d/c from ED?: No Referrals: Gavin Mcdonald MD [Primary Care Provider] - 1-2 days Time of Disposition: 23:06
== END 2022-10-31 23:27 | disposition home or self-care (01) ==
LOC: EC 21:38
DX: L03.213 Periorbital cellulitis (principal); H10.9 Unspecified conjunctivitis; I10 Essential (primary) hypertension; F17.200 Nicotine dependence, unspecified, uncomplicated; F41.9 Anxiety disorder, unspecified; F32.A Depression, unspecified; Z90.89 Acquired absence of other organs; Z79.899 Other long term (current) drug therapy; Z79.82 Long term (current) use of aspirin
CPT/HCPCS: 99282

== ENCOUNTER 2023-02-18 22:58 | Emergency (ER) | payer BC ==
[2023-02-18 23:04] LABS: Glucose,Whole Blood 95 mg/dL (70-110)
--- NOTE | 2023-02-18 23:27 | ED ---
General Adult HPI - General Chief complaint: Alcohol Stated complaint: ETOH Time Seen by Provider: 02/18/23 23:01 Source: EMS Mode of arrival: EMS Limitations: altered mental status - History of Present Illness Initial comments: Dictation was produced using [employer] dictation software. please excuse any grammatical, word or spelling errors. Chief Complaint: 47-year-old feel presents to the ER for alcohol intoxication History of Present Illness: Is 47-year-old female she apparently was dragon alcohol today. Patient was found laying down outside in the yard. EMS was called by patient's children. Patient denies any complaints at this time. She does report drinking. She denies drinking daily. Patient has no complaints. The ROS documented in this emergency department record has been reviewed and confirmed by me. Those systems with pertinent positive or negative responses have been documented in the HPI. All other systems are other negative and/or noncontributory. - Related Data Home Medications Medication Instructions Recorded Confirmed Citalopram Hydrobromide [CeleXA] 20 mg PO DAILY 06/08/21 09/28/21 Aspirin EC [Ecotrin Low Dose] 81 mg PO DAILY 06/28/21 09/28/21 Atorvastatin [Lipitor] 20 mg PO DAILY 06/28/21 09/28/21 Acamprosate Calcium [Campral] 333 mg PO BID 09/28/21 09/28/21 busPIRone HCl [Buspar] 5 mg PO DAILY 09/28/21 09/28/21 Previous Rx's Medication Instructions Recorded lisinopriL 20 mg PO DAILY 30 Days tab 05/25/20 Amoxic-Pot Clav 875-125Mg 1 tab PO Q12HR #20 tab 10/31/22 [Augmentin 875-125] Allergies Allergy/AdvReac Type Severity Reaction Status Date / Time No Known Allergies Allergy Verified 10/31/22 22:44 Review of Systems ROS Statement: Those systems with pertinent positive or pertinent negative responses have been documented in the HPI. ROS Other: All systems not noted in ROS Statement are negative. Past Medical History Past Medical History: Hypertension Additional Past Medical History / Comment(s): Depression, alcoholism History of Any Multi-Drug Resistant Organisms: MRSA Date of last positivie culture/infection: 08/04/2017 MDRO Source:: nose Past Surgical History: Tonsillectomy Past Anesthesia/Blood Transfusion Reactions: No Reported Reaction Past Psychological History: Anxiety, Depression Smoking Status: Current every day smoker Past Alcohol Use History: Daily Past Drug Use History: None Reported - Past Family History Father Family Medical History: CVA/TIA Additional Family Medical History / Comment(s): aneurisym x 2, then a strok 5 years ago Mother Family Medical History: No Reported History Family Additional Family Medical History / Comment(s): Premature CAD in her uncle maternal side General Exam - General Exam Comments Initial Comments: PHYSICAL EXAM: General Impression: Alert and oriented x3, inebriated HEENT: Normocephalic atraumatic, extra-ocular movements intact, pupils equal and reactive to light bilaterally, mucous membranes moist. Cardiovascular: Heart regular rate and rhythm Chest: Able to complete full sentences, no retractions, no tachypnea Abdomen: abdomen soft, non-tender, non-distended, no organomegaly Musculoskeletal: Pulses present and equal in all extremities, no peripheral edema Motor: no focal deficits noted Neurological: CN II-XII grossly intact, no focal motor or sensory deficits noted Skin: Intact with no visualized rashes Psych: Normal affect and mood Limitations: altered mental status Course Vital Signs 02/18/23 02/19/23 02/19/23 23:06 03:53 07:14 Temperature 97.1 F L 98.3 F Pulse Rate 96 82 82 Respiratory 16 16 18 Rate Blood Pressure 98/77 100/59 129/83 O2 Sat by Pulse 96 95 96 Oximetry Medical Decision Making - Medical Decision Making Was pt. sent in by a medical professional or institution (, PA, BIOMETRICS SPECIALIST, urgent care, hospital, or custodial...) When possible be specific @ -No Did you speak to anyone other than the patient for history (EMS, parent, family, police, friend...)? What history was obtained from this source @ -EMS S as stated above Did you review nursing and triage notes (agree or disagree)? Why? @ -I reviewed and agree with nursing and triage notes Were old charts reviewed (outside hosp., previous admission, EMS record, old EKG, old radiological studies, urgent care reports/EKG's, custodial records)? Report findings @ -No old charts were reviewed Differential Diagnosis (chest pain, altered mental status, abdominal pain women, abdominal pain men, vaginal bleeding, musculoskeletal, weakness, fever, dyspnea, syncope, headache, dizziness, GI bleed, back pain, seizure, CVA, palpatations, mental health)? @ -Differential Altered Mental Status: Hypoglycemia, DKA, hypercapnia, ETOH, overdose, CO poisoning, trauma, myxedema c colt, HTN encephalopathy, infection, encephalitis, psychosis, intercranial hemorrhage, hepatic encephalopathy, meningitis, CVA, this is not meant to be an all-inclusive list EKG interpreted by me (3pts min.). @ -None done X-rays interpreted by me (1pt min.). @ -None done CT interpreted by me (1pt min.). @ -None done U/S interpreted by me (1pt. min.). @ -None done What testing was considered but not performed or refused? (CT, X-rays, U/S, labs)? Why? @ -None What meds were considered but not given or refused? Why? @ -None Did you discuss the management of the patient with other professionals (professionals i.e. , PA, BIOMETRICS SPECIALIST, lab, RT, psych nurse, social media assistant, biomass power plant manager, teacher, ethics officer, case maker)? Give summary @ -No Was smoking cessation discussed for >3mins.? @ -No Was critical care preformed (if so, how long)? @ -No Were there social determinants of health that impacted care today? How? (Homelessness, low income, unemployed, alcoholism, drug addiction, transportation, low edu. Level, literacy, decrease access to med. care, penitentiary, rehab)? @ -History of alcoholism Was there de-escalation of care discussed even if they declined (Discuss DNR or withdrawal of care, Hospice)? DNR status @ -No What co-morbidities impacted this encounter? (DM, HTN, Smoking, COPD, CAD, Cancer, CVA, ARF, Chemo, Hep., AIDS, mental health diagnosis, sleep apnea, morbid obesity)? @ -None Was patient admitted / discharged? Hospital course, mention meds given and route, prescriptions, significant lab abnormalities, going to OR and other pertinent info. @ -47-year-old female presents to the ER for alcohol intoxication. Vital signs upon arrival are within acceptable limits. Laboratory evaluation obtained. CBC unremarkable. Metabolic panel shows mild hypernatremia. Serum alcohol is 417. No significant acidosis. Patient monitored in the ER. She is in no distress. She ambulated without complications. Patient likely has history of daily alcohol use. Patient observed in emergency prior for several hours. Patient will pick patient up at 7 AM. Patient be discharged Undiagnosed new problem with uncertain prognosis? @ -No Drug Therapy requiring intensive monitoring for toxicity (Heparin, Nitro, Insulin, Cardizem)? @ -No Were any procedures done? @ -No Diagnosis/symptom? Acute, or Chronic, or Acute on Chronic? Uncomplicated (without systemic symptoms) or Complicated (systemic symptoms)? @ -1. Alcohol intoxication Side effects of treatment? @ -No Exacerbation, Progression, or Severe Exacerbation? @ -No Poses a threat to life or bodily function? How? (Chest pain, USA, [place], pneumonia, PE, COPD, DKA, ARF, appy, cholecystitis, CVA, Diverticulitis, Homicidal, Suicidal, threat to staff... and all critical care pts) @ -No - Lab Data Result diagrams: 02/18/23 23:29 02/18/23 23:29 Lab Results 02/18/23 02/18/23 02/18/23 Range/Units 23:02 23:29 23:29 WBC 12.9 H (3.8-10.6) k/uL RBC 4.98 (3.80-5.40) m/uL Hgb 14.7 (11.4-16.0) gm/dL Hct 48.3 H (34.0-46.0) % MCV 97.0 (80.0-100.0) fL MCH 29.5 (25.0-35.0) pg MCHC 30.4 L (31.0-37.0) g/dL RDW 13.8 (11.5-15.5) % Plt Count 352 (150-450) k/uL MPV 7.2 Neutrophils % 51 % Lymphocytes % 38 % Monocytes % 6 % Eosinophils % 2 % Basophils % 0 % Neutrophils # 6.6 (1.3-7.7) k/uL Lymphocytes # 4.9 H (1.0-4.8) k/uL Monocytes # 0.7 (0-1.0) k/uL Eosinophils # 0.3 (0-0.7) k/uL Basophils # 0.1 (0-0.2) k/uL Sodium 149 H (137-145) mmol/L Potassium 3.8 (3.5-5.1) mmol/L Chloride 116 H (98-107) mmol/L Carbon Dioxide 20 L (22-30) mmol/L Anion Gap 13 mmol/L BUN 20 H (7-17) mg/dL Creatinine 0.69 (0.52-1.04) mg/dL Est GFR (CKD-EPI)AfAm >90 (>60 ml/min/1.73 sqM) Est GFR (CKD-EPI)NonAf >90 (>60 ml/min/1.73 sqM) Glucose 97 (74-99) mg/dL POC Glucose (mg/dL) 95 (70-110) mg/dL POC Glu Tablet Making Machine Operator ID Matthew Arevalo Calcium 8.8 (8.4-10.2) mg/dL Magnesium 2.3 (1.6-2.3) mg/dL Serum Alcohol 417 H* mg/dL Disposition Clinical Impression: Alcohol intoxication Disposition: HOME SELF-CARE Instructions (If sedation given, give patient instructions): Alcohol Intoxicat ion (ED) Is patient prescribed a controlled substance at d/c from ED?: No Referrals: Gavin Mcdonald MD [Primary Care Provider] - 1-2 days
[2023-02-18 23:40] LABS: Basophils # (A) 0.1 k/uL (0-0.2); Basophils % (A) 0 %; Eosinophils # (A) 0.3 k/uL (0-0.7); Eosinophils % (A) 2 %; HCT 48.3 % (34.0-46.0); HGB 14.7 gm/dL (11.4-16.0); Lymphocytes # (A) 4.9 k/uL (1.0-4.8); Lymphocytes % (A) 38 %; MCH 29.5 pg (25.0-35.0); MCHC 30.4 g/dL (31.0-37.0); Mean Platelet Volume 7.2; Monocytes # (A) 0.7 k/uL (0-1.0); Monocytes % (A) 6 %; Neutrophils # (A) 6.6 k/uL (1.3-7.7); Neutrophils % (A) 51 %; Platelet Count 352 k/uL (150-450); RBC 4.98 m/uL (3.80-5.40); RDW 13.8 % (11.5-15.5); WBC 12.9 k/uL (3.8-10.6)
[2023-02-18 23:44] LABS: African American GFR (CKD) >90 (>60 ml/min/1.73 sqM); Anion Gap 13 mmol/L; Blood Urea Nitrogen 20 mg/dL (7-17); Calcium 8.8 mg/dL (8.4-10.2); Carbon Dioxide 20 mmol/L (22-30); Chloride 116 mmol/L (98-107); Glucose 97 mg/dL (74-99); Magnesium 2.3 mg/dL (1.6-2.3); Non-African American GFR(CKD) >90 (>60 ml/min/1.73 sqM); Potassium 3.8 mmol/L (3.5-5.1); Sodium 149 mmol/L (137-145)
[2023-02-19 00:03] LABS: Alcohol 417 mg/dL
[2023-02-19 03:57] VITALS: PULSE 82
[2023-02-19 07:19] VITALS: BP 129/83; RESP 18; TEMP 98.3
== END 2023-02-19 07:44 | disposition home or self-care (01) ==
LOC: EC 22:58
DX: F10.129 Alcohol abuse with intoxication, unspecified (principal); I10 Essential (primary) hypertension; F41.9 Anxiety disorder, unspecified; F32.A Depression, unspecified; F17.200 Nicotine dependence, unspecified, uncomplicated; Z79.82 Long term (current) use of aspirin; Z79.899 Other long term (current) drug therapy; Y90.8 Blood alcohol level of 240 mg/100 ml or more
CPT/HCPCS: 36415; 80048; 80320; 83735; 85025; 99285

== ENCOUNTER 2023-05-21 07:26 | Day surgery (SDC) | payer BC ==
[2023-05-20 09:42] VITALS: BMI 27.4
[~2023-05-21 07:26] MED LIST: LACTATED RINGERS 1,000 ML IV SCH
[2023-05-21 07:56] VITALS: TEMP 97.9
[2023-05-21] MEDS ORDERED: PROPOFOL 10 MG/ML 20 ML VIAL IV ONE (08:49)
[2023-05-21] MEDS ORDERED: LIDOCAINE 1% INJ 10MG/ML (20 ML MDV) ONE (08:49)
--- NOTE | 2023-05-21 09:09 | P.PCN ---
Date of Procedure: 05/21/23 Procedure(s) Performed: Brief history: Patient is a pleasant 48-year-old white female scheduled for an elective upper endoscopy as well as colonoscopy as a part of evaluation of epigastric pain, intermittent rectal bleeding for the last several months duration Procedure performed: Esophagogastroduodenoscopy with biopsy Colonoscopy Preoperative diagnosis: Epigastric pain Intermittent rectal bleeding Anesthesia: [facility] [place] Procedure: After informed consent was obtained from the patient was brought into the endoscopy unit and IV sedation was administered by anesthesia under continuous monitoring. Initially upper endoscopy was done. The Olympus GF 160 video endoscope was inserted inserted into the mouth and esophagus intubated without any difficulty and was gradually advanced into the stomach and duodenum and carefully examined. The bulb and second part of the duodenum appeared normal. The scope was then withdrawn into the stomach adequately insufflated with air and upon careful examination the antrum had diffuse gastritis and biopsies were done from this area. Mucosa of the body, cardia and fundus appeared normal. The scope was then withdrawn into the esophagus. The GE junction was located at 40 cm to the incisors. Small hiatal hernia noted. It appeared regular with 2 superficial erosions consistent with LA grade B reflux esophagitis.. Rest of the esophagus appeared normal. Patient tolerated the procedure well. At this time the patient continued to remain sedation. Initial digital rectal examination was normal. Olympus CF 160 video colonoscope was then inserted into the rectum and gradually advanced to the cecum without any difficulty. Careful examination was performed as the scope was gradually being withdrawn. The prep was excellent. The cecum, ascending colon, transverse colon, descending colon, sigmoid colon and rectum appeared normal. Retroflexion was performed in the rectum and grade 2 internal hemorrhoids were noted. Patient tolerated the procedure well. Impression: 1. Of endoscopy revealed mild diffuse gastritis and mild LA grade B reflux e sophagitis 2. Colonoscopy revealed grade 2 internal hemorrhoids. Recommendations: Findings of this examination were discussed with the patient as well as her family. She was advised to be a high-fiber diet and take fiber supplements a regular beta. Continue with MiraLAX everyday and avoid straining and constipation.
[2023-05-21 09:31] VITALS: RESP 16
[2023-05-21] MEDS ORDERED: hydrALAZINE HCL 20 MG/ML 1 ML VIAL IVP ONE (10:04)
[2023-05-21 10:28] VITALS: BP 176/92; PULSE 55
== END 2023-05-21 10:27 | disposition home or self-care (01) ==
LOC: ORWHC2ENDO 07:26
PROVIDERS: ATTEND Internal Medicine Gastroenterology
DX: K29.50 Unspecified chronic gastritis without bleeding (principal); K21.00 Gastro-esophageal reflux disease with esophagitis, without bleeding; K44.9 Diaphragmatic hernia without obstruction or gangrene; K64.1 Second degree hemorrhoids; K62.5 Hemorrhage of anus and rectum; I10 Essential (primary) hypertension; E78.5 Hyperlipidemia, unspecified; F17.200 Nicotine dependence, unspecified, uncomplicated; F12.90 Cannabis use, unspecified, uncomplicated; F41.9 Anxiety disorder, unspecified; F32.A Depression, unspecified; Z79.811 Long term (current) use of aromatase inhibitors; Z79.83 Long term (current) use of bisphosphonates; Z79.01 Long term (current) use of anticoagulants; Z79.899 Other long term (current) drug therapy
CPT/HCPCS: 81025; 88305; 45378; 43239; J0360; J2001; J2704

== ENCOUNTER 2023-07-27 21:54 | Emergency (ER) | payer BC ==
[2023-07-27 22:48] VITALS: RESP 18
--- NOTE | 2023-07-27 23:29 | ED ---
Psych HPI - General Chief Complaint: Psychiatric Symptoms Stated Complaint: Mental Health Time Seen by Provider: 07/27/23 22:02 Source: patient Mode of arrival: EMS Limitations: no limitations - History of Present Illness Initial Comments: 's patient is a 48-year-old woman who presents and states "I drank too much." It was reported by family that she was feeling depressed as well. When I question the patient she states that she had just been drinking too much. She denies suicidal ideation. She denies any complaints. Complaint: other -: hour(s) Associated Psychiatric Symptoms: none Quality: constant Improves With: none Worsens With: none Associated Symptoms: denies other symptoms - Related Data Home Medications Medication Instructions Recorded Confirmed Atorvastatin [Lipitor] 20 mg PO DAILY 06/28/21 05/21/23 busPIRone HCl [Buspar] 15 mg PO BID 09/28/21 05/21/23 Disulfiram 250 mg PO DAILY 04/18/23 05/21/23 Lumateperone Tosylate [Caplyta] 42 mg PO DAILY 04/18/23 05/21/23 Pantoprazole [Protonix] 40 mg PO DAILY 04/18/23 05/21/23 Promethazine HCl 12.5 mg PO QID 04/18/23 05/21/23 Sertraline [Zoloft] 50 mg PO DAILY 04/18/23 05/21/23 Previous Rx's Medication Instructions Recorded lisinopriL 20 mg PO DAILY 30 Days tab 05/25/20 Allergies Allergy/AdvReac Type Severity Reaction Status Date / Time No Known Allergies Allergy Verified 07/27/23 22:06 Review of Systems ROS Statement: Those systems with pertinent positive or pertinent negative responses have been documented in the HPI. ROS Other: All systems not noted in ROS Statement are negative. Constitutional: Denies: fever Respiratory: Denies: cough, dyspnea Cardiovascular: Denies: chest pain, palpitations, edema Gastrointestinal: Denies: abdominal pain, nausea, vomiting Musculoskeletal: Denies: back pain Neurological: Denies: headache Psychiatric: Denies: depression, homicidal thoughts, suicidal thoughts Past Medical History Past Medical History: Hypertension Additional Past Medical History / Comment(s): Depression, alcoholism History of Any Multi-Drug Resistant Organisms: MRSA Date of last positivie culture/infection: 08/04/2017 MDRO Source:: nose Past Surgical History: Tonsillectomy Past Anesthesia/Blood Transfusion Reactions: No Reported Reaction Past Psychological History: Anxiety, Depression Smoking Status: Current every day smoker Past Alcohol Use History: Abuse, Daily, Heavy Past Drug Use History: None Reported - Past Family History Father Family Medical History: CVA/TIA Additional Family Medical History / Comment(s): aneurisym x 2, then a strok 5 years ago Mother Family Medical History: No Reported History Family Additional Family Medical History / Comment(s): Premature CAD in her uncle maternal side General Exam Limitations: no limitations General appearance: alert, in no apparent distress Head exam: Present: atraumatic, normocephalic Eye exam: Present: normal appearance Neck exam: Present: normal inspection Respiratory exam: Present: normal lung sounds bilaterally. Absent: respiratory distress, wheezes, rales, rhonchi, stridor Cardiovascular Exam: Present: regular rate, normal rhythm, normal heart sounds. Absent: systolic murmur, diastolic murmur, rubs, gallop GI/Abdominal exam: Present: soft. Absent: distended, tenderness, guarding, rebound, rigid, mass Extremities exam: Present: normal inspection, normal capillary refill. Absent: pedal edema, calf tenderness Back exam: Present: normal inspection Neurological exam: Present: alert Psychiatric exam: Absent: agitated, anxious, flat affect, manic, homicidal ideation, suicidal ideation Skin exam: Present: warm, dry, intact, normal color. Absent: rash Course Vital Signs 07/27/23 07/27/23 07/27/23 22:06 22:11 23:59 Temperature 98.6 F 98.6 F 97.7 F Pulse Rate 72 72 82 Respiratory 18 18 18 Rate Blood Pressure 106/65 106/65 110/72 O2 Sat by Pulse 94 L 94 L 95 Oximetry Medical Decision Making - Medical Decision Making Patient is 48-year-old woman here to have evaluation after drinking. After treated in the emergency department, she stated that she did not want to go home. There is family member with her who will stay with her tonight. Again no suicidal ideation. Discussed return parameters and appropriate follow-up. Was pt. sent in by a medical professional or institution (, PA, DIP GUIDER STOVES, urgent care, hospital, or halfway...) When possible be specific @ -[No] Did you speak to anyone other than the patient for history (EMS, parent, family, police, friend...)? What history was obtained from this source @ -[No] Did you review nursing and triage notes (agree or disagree)? Why? @ -[I reviewed and agree with nursing and triage notes] Were old charts reviewed (outside hosp., previous admission, EMS record, old EKG, old radiological studies, urgent care reports/EKG's, halfway records)? Report findings @ -[No old charts were reviewed] Differential Diagnosis (chest pain, altered mental status, abdominal pain women, abdominal pain men, vaginal bleeding, weakness, fever, dyspnea, syncope, headache, dizziness, GI bleed, back pain, seizure, CVA, palpatations, mental health, musculoskeletal)? @ -[Differential Mental Health Depression, anxiety, bipolar, psychosis, schizophrenia, borderline personality, situational depression, adjustment disorder, behavioral disorder, brain tumor, malingering, substance abuse, encephalopathy, medication reaction, dementia, hypothyroidism, degenerative neurologic disorder, lupus.... This is not meant to be all-inclusive list EKG interpreted by me (3pts min.). @ -[As above] X-rays interpreted by me (1pt min.). @ -[None done] CT interpreted by me (1pt min.). @ -[None done] U/S interpreted by me (1pt. min.). @ -[None done] What testing was considered but not performed or refused? (CT, X-rays, U/S, labs)? Why? @ -[None] What meds were considered but not given or refused? Why? @ -[None] Did you discuss the management of the patient with other professionals (professionals i.e. , PA, DIP GUIDER STOVES, lab, RT, psych nurse, addiction social worker, laboratory mechanic helper, teacher, tactical intelligence officer, case picker)? Give summary @ -[No] Was smoking cessation discussed for >3mins.? @ -[No] Was critical care preformed (if so, how long)? @ -[No] Were there social determinants of health that impacted care today? How? (Homelessness, low income, unemployed, alcoholism, drug addiction, transportation, low edu. Level, literacy, decrease access to med. care, nursing home, rehab)? @ -[No] Was there de-escalation of care discussed even if they declined (Discuss DNR or withdrawal of care, Hospice)? DNR status @ -[No] What co-morbidities impacted this encounter? (DM, HTN, Smoking, COPD, CAD, Cancer, CVA, ARF, Chemo, Hep., AIDS, mental health diagnosis, sleep apnea, morbid obesity)? @ -[None] Was patient admitted / discharged? Hospital course, mention meds given and route, prescriptions, significant lab abnormalities, going to OR and other pertinent info. @ -[hospital course] Undiagnosed new problem with uncertain prognosis? @ -[No] Drug Therapy requiring intensive monitoring for toxicity (Heparin, Nitro, Insulin, Cardizem)? @ -[No] Were any procedures done? @ -[No] Diagnosis/symptom? @ -[Acute alcohol intoxication Acute, or Chronic, or Acute on Chronic? @ -[default] Uncomplicated (without systemic symptoms) or Complicated (systemic symptoms)? @ -[Uncomplicated Side effects of treatment? @ -[No] Exacerbation, Progression, or Severe Exacerbation? @ -[No] Poses a threat to life or bodily function? How? (Chest pain, [place], [place], pneumonia, PE, COPD, DKA, ARF, appy, cholecystitis, CVA, Diverticulitis, Homicidal, Devi icidal, threat to staff... and all critical care pts) @ -[No] Disposition Clinical Impression: Alcohol intoxication Disposition: HOME SELF-CARE Condition: Good Instructions (If sedation given, give patient instructions): Alcohol Intoxication (ED) Is patient prescribed a controlled substance at d/c from ED?: No Referrals: None,Stated [Primary Care Provider] - 1-2 days
[2023-07-28 00:29] VITALS: BP 110/72; PULSE 82; TEMP 97.7
== END 2023-07-28 | disposition home or self-care (01) ==
LOC: EC 21:54
DX: F10.129 Alcohol abuse with intoxication, unspecified (principal); I10 Essential (primary) hypertension; F41.9 Anxiety disorder, unspecified; F32.A Depression, unspecified; F17.200 Nicotine dependence, unspecified, uncomplicated; Z79.899 Other long term (current) drug therapy
CPT/HCPCS: 82075; 99285

== ENCOUNTER 2023-08-27 08:45 | Emergency (ER) | payer BC ==
[2023-08-27 09:04] VITALS: BP 170/95; PULSE 83; RESP 20; TEMP 98.3
[2023-08-27] MEDS ORDERED: SODIUM CHLORIDE 0.9% 1,000 ML IV STA (09:26)
--- NOTE | 2023-08-27 09:43 | ED ---
Headache HPI - General Chief Complaint: Headache Stated Complaint: headache Time Seen by Provider: 08/27/23 08:56 Source: RN notes reviewed, old records reviewed Mode of arrival: ambulatory Limitations: no limitations - History of Present Illness Initial Comments: This is a 48-year-old female to the ER for evaluation, patient did not stay for evaluation of a headache. Also complaining of significant tremor uncontrollable shaking of up both arms. Patient is having persistent shaking of both hands and consistent symptoms here in the ER. MD Complaint: headache, "migraine" -: days(s) (3) Onset Description: "thunderclap" Location: right, left, frontal, temporal Severity: moderate Severity scale (1-10): 6 Quality: full, constant, similar to previous headaches Improves With: nothing Worsens With: none Associated Symptoms: nausea, weakness Treatments Prior to Arrival: none - Related Data Home Medications Medication Instructions Recorded Confirmed Atorvastatin [Lipitor] 20 mg PO DAILY 06/28/21 05/21/23 busPIRone HCl [Buspar] 15 mg PO BID 09/28/21 05/21/23 Disulfiram 250 mg PO DAILY 04/18/23 05/21/23 Lumateperone Tosylate [Caplyta] 42 mg PO DAILY 04/18/23 05/21/23 Pantoprazole [Protonix] 40 mg PO DAILY 04/18/23 05/21/23 Promethazine HCl 12.5 mg PO QID 04/18/23 05/21/23 Sertraline [Zoloft] 50 mg PO DAILY 04/18/23 05/21/23 Previous Rx's Medication Instructions Recorded lisinopriL 20 mg PO DAILY 30 Days tab 05/25/20 Allergies Allergy/AdvReac Type Severity Reaction Status Date / Time No Known Allergies Allergy Verified 08/27/23 08:53 Review of Systems ROS Statement: Those systems with pertinent positive or pertinent negative responses have been documented in the HPI. ROS Other: All systems not noted in ROS Statement are negative. Past Medical History Past Medical History: Hypertension Additional Past Medical History / Comment(s): Depression, alcoholism History of Any Multi-Drug Resistant Organisms: MRSA Date of last positivie culture/infection: 08/04/2017 MDRO Source:: nose Past Surgical History: Tonsillectomy Past Anesthesia/Blood Transfusion Reactions: No Reported Reaction Past Psychological History: Anxiety, Depression Smoking Status: Current every day smoker Past Alcohol Use History: Abuse, Daily, Heavy Past Drug Use History: None Reported - Past Family History Father Family Medical History: CVA/TIA Additional Family Medical History / Comment(s): aneurisym x 2, then a strok 5 years ago Mother Family Medical History: No Reported History Family Additional Family Medical History / Comment(s): Premature CAD in her uncle ma ternal side General Exam Limitations: no limitations General appearance: alert, in no apparent distress Head exam: Present: atraumatic, normocephalic, normal inspection Eye exam: Present: normal appearance, PERRL, EOMI. Absent: scleral icterus, conjunctival injection, periorbital swelling ENT exam: Present: normal exam, mucous membranes moist Neck exam: Present: normal inspection. Absent: tenderness, meningismus, lymphadenopathy Respiratory exam: Present: normal lung sounds bilaterally. Absent: respiratory distress, wheezes, rales, rhonchi, stridor Cardiovascular Exam: Present: regular rate, normal rhythm, normal heart sounds. Absent: systolic murmur, diastolic murmur, rubs, gallop, clicks GI/Abdominal exam: Present: soft, normal bowel sounds. Absent: distended, tenderness, guarding, rebound, rigid Extremities exam: Present: normal inspection, full ROM, normal capillary refill. Absent: tenderness, pedal edema, joint swelling, calf tenderness Back exam: Present: normal inspection Neurological exam: Present: alert, oriented X3, CN II-XII intact Psychiatric exam: Present: normal affect, normal mood Skin exam: Present: warm, dry, intact, normal color. Absent: rash Course Vital Signs 08/27/23 08:51 Temperature 98.3 F Pulse Rate 83 Respiratory 20 Rate Blood Pressure 170/95 O2 Sat by Pulse 97 Oximetry - Reevaluation(s) Reevaluation #1: Medical records reviewed Reevaluation #2: Patient symptoms are improved Reevaluation #3: Patient informed of results and questions answered Reevaluation #4: Was pt. sent in by a medical professional or institution (, PA, SENIOR SUSTAINABILITY ADVISOR, urgent care, hospital, or correction...) When possible be specific @ -no Did you speak to anyone other than the patient for history (EMS, parent, family, police, friend...)? What history was obtained from this source @ -no Did you review nursing and triage notes (agree or disagree)? Why? @ -agree Are old charts reviewed (outside hosp., previous admission, EMS record, old EKG, old radiological studies, urgent care reports/EKG's, correction records)? Report findings @ -yes Differential Diagnosis (chest pain, altered mental status, abdominal pain women, abdominal pain men, vaginal bleeding, weakness, fever, dyspnea, syncope, headache, dizziness, GI bleed, back pain, seizure, CVA, palpatations, mental health, musculoskeletal)? @ -prior EKG interpreted by me (3pts min.). @ -no X-rays interpreted by me (1pt min.). @ -no CT interpreted by me (1pt min.). @ -yes negative for acute disease U/S interpreted by me (1pt. min.). @ -no What testing was considered but not performed or refused? (CT, X-rays, U/S, labs)? Why? @ -none What meds were considered but not given or refused? Why? @ -none Did you discuss the management of the patient with other professionals (professionals i.e. , PA, SENIOR SUSTAINABILITY ADVISOR, lab, RT, psych nurse, social insurance analyst, job service consultant, teacher, traffic officer, case assistant)? Give summary @ -no Was smoking cessation discussed for >3mins.? @ -no Were there social determinants of health that impacted care today? How? (Homelessness, low income, unemployed, alcoholism, drug addiction, transportation, low edu. Level, literacy, decrease access to med. care, group home, rehab)? @ -none Was there de-escalation of care discussed even if they declined (Discuss DNR or withdrawal of care, Hospice)? DNR status @ -no What co-morbidities impacted this encounter? (DM, HTN, Smoking, COPD, CAD, Cancer, CVA, ARF, Chemo, Hep., AIDS, mental health diagnosis, sleep apnea, morbid obesity)? @ -none Was patient admitted / discharged? Hospital course, mention meds given and route, prescriptions, significant lab abnormalities, going to OR and other pertinent info. @ - 48 female to the ER for evaluation uncontrollable head trauma with history of alcohol abuse and disease. Patient has no acute findings here in the ER and currently will be discharged home Discharge Was critical care preformed (if so, how long)? @ -no Undiagnosed new problem with uncertain prognosis? @ -no Drug Therapy requiring intensive monitoring for toxicity (Heparin, Nitro, Insulin, Cardizem)? @ -no Were any procedures done? @ -no Diagnosis/symptom? @ -Acute tremor, alcohol abuse Acute, or Chronic, or Acute on Chronic? @ -Acute Uncomplicated (without systemic symptoms) or Complicated (systemic symptoms)? @ -Complicated Side effects of treatment? @ -no Exacerbation, Progression, or Severe Exacerbation? @ -exacerbation Poses a threat to life or bodily function? How? (Chest pain, USA, [place], pneumonia, PE, COPD, DKA, ARF, appy, cholecystitis, CVA, Diverticulitis, Homicidal, Suicidal, threat to staff... and all critical care pts) @ -no Reevaluation #5: Differential Headache: Migraine, tension, cluster, carbon monoxide, central venous thrombosis, pension karma temporal arteritis, acute closure glaucoma, intercranial hemorrhage, mastoiditis, sinusitis, head injury, this is not meant to be an all-inclusive list. Medical Decision Making - Medical Decision Making 48 female to the ER for evaluation uncontrollable head trauma with history of alcohol abuse and disease. Patient has no acute findings here in the ER and currently will be discharged home - Lab Data Result diagrams: 08/27/23 09:38 08/27/23 09:38 Lab Results 08/27/23 08/27/23 08/27/23 Range/Units 09:38 09:38 09:38 WBC 7.3 (3.8-10.6) k/uL RBC 5.06 (3.80-5.40) m/uL Hgb 15.8 (11.4-16.0) gm/dL Hct 47.2 H (34.0-46.0) % MCV 93.4 (80.0-100.0) fL MCH 31.3 (25.0-35.0) pg MCHC 33.5 (31.0-37.0) g/dL RDW 12.8 (11.5-15.5) % Plt Count 232 (150-450) k/uL MPV 7.8 Neutrophils % 69 % Lymphocytes % 22 % Monocytes % 5 % Eosinophils % 2 % Basophils % 0 % Neutrophils # 5.1 (1.3-7.7) k/uL Lymphocytes # 1.6 (1.0-4.8) k/uL Monocytes # 0.4 (0-1.0) k/uL Eosinophils # 0.1 (0-0.7) k/uL Basophils # 0.0 (0-0.2) k/uL PT 10.1 (10.0-12.5) sec INR 0.9 (<1.2) APTT 23.6 (22.0-30.0) sec Sodium 137 (137-145) mmol/L Potassium 4.2 (3.5-5.1) mmol/L Chloride 107 (98-107) mmol/L Carbon Dioxide 22 (22-30) mmol/L Anion Gap 8 mmol/L BUN 17 (7-17) mg/dL Creatinine 0.55 (0.52-1.04) mg/dL Est GFR (CKD-EPI)AfAm >90 (>60 ml/min/1.73 sqM) Est GFR (CKD-EPI)NonAf >90 (>60 ml/min/1.73 sqM) Glucose 96 (74-99) mg/dL Calcium 9.3 (8.4-10.2) mg/dL Phosphorus 3.7 (2.5-4.5) mg/dL Magnesium 1.8 (1.6-2.3) mg/dL Total Bilirubin 0.6 (0.2-1.3) mg/dL AST 32 (14-36) U/L ALT 20 (4-34) U/L Alkaline Phosphatase 93 (38-126) U/L Creatine Kinase 81 (30-135) U/L CK-MB (CK-2) (0.0-3.4) ng/mL Troponin I (0.000-0.034) ng/mL NT-Pro-B Natriuret Pep pg/mL Total Protein 7.5 (6.3-8.2) g/dL Albumin 4.5 (3.5-5.0) g/dL TSH (0.465-4.680) mIU/L 08/27/23 08/27/23 Range/Units 09:38 09:38 WBC (3.8-10.6) k/uL RBC (3.80-5.40) m/uL Hgb (11.4-16.0) gm/dL Hct (34.0-46.0) % MCV (80.0-100.0) fL MCH (25.0-35.0) pg MCHC (31.0-37.0) g/dL RDW (11.5-15.5) % Plt Count (150-450) k/uL MPV Neutrophils % % Lymphocytes % % Monocytes % % Eosinophils % % Basophils % % Neutrophils # (1.3-7.7) k/uL Lymphocytes # (1.0-4.8) k/uL Monocytes # (0-1.0) k/uL Eosinophils # (0-0.7) k/uL Basophils # (0-0.2) k/uL PT (10.0-12.5) sec INR (<1.2) APTT (22.0-30.0) sec Sodium (137-145) mmol/L Potassium (3.5-5.1) mmol/L Chloride (98-107) mmol/L Carbon Dioxide (22-30) mmol/L Anion Gap mmol/L BUN (7-17) mg/dL Creatinine (0.52-1.04) mg/dL Est GFR (CKD-EPI)AfAm (>60 ml/min/1.73 sqM) Est GFR (CKD-EPI)NonAf (>60 ml/min/1.73 sqM) Glucose (74-99) mg/dL Calcium (8.4-10.2) mg/dL Phosphorus (2.5-4.5) mg/dL Magnesium (1.6-2.3) mg/dL Total Bilirubin (0.2-1.3) mg/dL AST (14-36) U/L ALT (4-34) U/L Alkaline Phosphatase (38-126) U/L Creatine Kinase (30-135) U/L CK-MB (CK-2) 1.0 (0.0-3.4) ng/mL Troponin I <0.012 (0.000-0.034) ng/mL NT-Pro-B Natriuret Pep 24 pg/mL Total Protein (6.3-8.2) g/dL Albumin (3.5-5.0) g/dL TSH 0.993 (0.465-4.680) mIU/L - Radiology Data Radiology results: report reviewed (CT brain is negative for acute disease), image reviewed Disposition Clinical Impression: Tremor, Alcohol intoxication Disposition: HOME SELF-CARE Condition: Good Instructions (If sedation given, give patient instructions): Tremors (ED) Is patient prescribed a controlled substance at d/c from ED?: No Referrals: Gavin Mcdonald MD [Primary Care Provider] - 1-2 days Time of Disposition: 11:30
[2023-08-27 09:53] LABS: Basophils % (A) 0 %; Eosinophils # (A) 0.1 k/uL (0-0.7); Eosinophils % (A) 2 %; HCT 47.2 % (34.0-46.0); HGB 15.8 gm/dL (11.4-16.0); Lymphocytes # (A) 1.6 k/uL (1.0-4.8); Lymphocytes % (A) 22 %; MCH 31.3 pg (25.0-35.0); MCHC 33.5 g/dL (31.0-37.0); MCV 93.4 fL (80.0-100.0); Mean Platelet Volume 7.8; Monocytes # (A) 0.4 k/uL (0-1.0); Monocytes % (A) 5 %; Neutrophils # (A) 5.1 k/uL (1.3-7.7); Neutrophils % (A) 69 %; Platelet Count 232 k/uL (150-450); RBC 5.06 m/uL (3.80-5.40); RDW 12.8 % (11.5-15.5); WBC 7.3 k/uL (3.8-10.6)
[2023-08-27 10:09] LABS: INR 0.9 (<1.2); Partial Thromboplastin Time 23.6 sec (22.0-30.0); Prothrombin Time 10.1 sec (10.0-12.5)
[2023-08-27 10:12] LABS: ALT 20 U/L (4-34); AST 32 U/L (14-36); African American GFR (CKD) >90 (>60 ml/min/1.73 sqM); Albumin 4.5 g/dL (3.5-5.0); Alkaline Phosphatase 93 U/L (38-126); Anion Gap 8 mmol/L; Blood Urea Nitrogen 17 mg/dL (7-17); Calcium 9.3 mg/dL (8.4-10.2); Carbon Dioxide 22 mmol/L (22-30); Chloride 107 mmol/L (98-107); Creatine Kinase 81 U/L (30-135); Glucose 96 mg/dL (74-99); Magnesium 1.8 mg/dL (1.6-2.3); Non-African American GFR(CKD) >90 (>60 ml/min/1.73 sqM); Phosphorus 3.7 mg/dL (2.5-4.5); Potassium 4.2 mmol/L (3.5-5.1); Sodium 137 mmol/L (137-145); Total Bilirubin 0.6 mg/dL (0.2-1.3); Total Protein 7.5 g/dL (6.3-8.2)
[2023-08-27 10:21] LABS: Troponin I <0.012 ng/mL (0.000-0.034)
--- NOTE | 2023-08-27 11:39 | CT ---
EXAMINATION TYPE: CT brain wo con DATE OF EXAM: 08/27/2023 COMPARISON: 05/04/2020 INDICATION: shaking head DLP: 1094.9 mGycm, Automated exposure control for dose reduction was used. CONTRAST: None CT of the brain is performed utilizing 3 mm thick sections through the posterior fossa and 3 mm thick sections through the remaining calvarium. Study is performed within 24 hours of arrival to the hosp ital. No abnormal hyperdensity is present to suggest an acute intracranial hemorrhage. No mass lesion is evident. No acute infarcts are evident. Ventricles and sulci are appropriate for the patient age. Paranasal sinuses and mastoid air cells within the [id number]-[id number]-hsia are clear. IMPRESSION: 1. No acute intracranial process. Follow-up MRI can be performed as clinically indicated
== END 2023-08-27 12:18 | disposition home or self-care (01) ==
LOC: EC 08:45
DX: F10.129 Alcohol abuse with intoxication, unspecified (principal); R25.1 Tremor, unspecified; I10 Essential (primary) hypertension; F17.200 Nicotine dependence, unspecified, uncomplicated; F32.A Depression, unspecified; F41.9 Anxiety disorder, unspecified; Z79.899 Other long term (current) drug therapy
CPT/HCPCS: 99284 ×2; 96374 ×2; 96361 ×3; 36415; 83880; 80053; 82550; 82553; 83735; 84100; 84443; 84484; 85025; 85610; 85730; 70450; J3360

== ENCOUNTER → 2023-09-04 | Outpatient (CLI) | payer BC ==
--- NOTE | 2023-09-04 13:21 | MR ---
EXAMINATION TYPE: MR brain wo/w con DATE OF EXAM: 09/04/2023 11:45 AM CLINICAL INDICATION:Female, 48 years old with history of G25.2 OTHER SPECIFIED FORMS OF TREMOR; PHH, tremors x6 months COMPARISON: CT 08/27/2023, 10/31/2022 TECHNIQUE: Multi planar, multi sequence imaging was performed through the brain including: T1, T2, In version recovery, susceptibility weighted imaging and gradient echo imaging and Diffusion weighted im aging. The patient was then given intravenous contrast and multi planar, T1 fat-saturation images wer e obtained. IV Contrast: 8ml cc Gadavist FINDINGS: The carrizales-white junctions, ventricular system, basal cisterns appear unremarkable. Diffusion-weighted imaging shows no evidence of restricted diffusion to suggest acute/subacute infarct. Intracranial ar terial flow voids are maintained. Midline structures show no abnormality. . The susceptibility weight ed images do not reveal any evidence for micro-hemorrhage. After administration of gadolinium, no abn ormal enhancement is seen. The bone marrow signal is within normal limits. Paranasal sinuses and mastoid air cells: No significant paranasal sinus disease. Visualized orbits: Orbital contents are intact. IMPRESSION: 1. No evidence of intracranial mass, acute/subacute infarct, or abnormal enhancement. 2. Nonspecific white matter changes, likely related to small vessel ischemic disease.
== END | disposition home or self-care (01) ==
LOC: RADMRIMAIN 10:17
PROVIDERS: ATTEND Family Medicine
DX: G25.2 Other specified forms of tremor (principal)
CPT/HCPCS: 70553; A9585

== ENCOUNTER 2025-02-13 11:53 | Emergency (ER) | payer BC ==
[2025-02-13 12:15] VITALS: TEMP 98.1
--- NOTE | 2025-02-13 14:53 | ED ---
General Adult HPI - General Chief complaint: Recheck/Abnormal Lab/Rx Stated complaint: Absess Time Seen by Provider: 02/13/25 13:03 Source: patient Mode of arrival: ambulatory Limitations: no limitations - History of Present Illness Initial comments: The patient is a 49-year-old female who has a history of alcohol abuse and mental health issues but otherwise healthy. Who presents emergency room with complaints of hemorrhoid. Patient states it started several days ago and has gotten progressively worse. She denies any bleeding. Patient has had a hemorrhoid since having a baby. She states that she had had some bowel issues earlier in the week which triggered the hemorrhoid. She has not seen a surgeon in the past for the hemorrhoids. Patient denies any constipation. She denies any nausea vomiting fever or again rectal bleeding. - Related Data Home Medications Medication Instructions Recorded Confirmed Atorvastatin [Lipitor] 20 mg PO DAILY 06/28/21 05/21/23 busPIRone HCl [Buspar] 15 mg PO BID 09/28/21 05/21/23 Disulfiram 250 mg PO DAILY 04/18/23 05/21/23 Lumateperone Tosylate [Caplyta] 42 mg PO DAILY 04/18/23 05/21/23 Pantoprazole [Protonix] 40 mg PO DAILY 04/18/23 05/21/23 Promethazine HCl 12.5 mg PO QID 04/18/23 05/21/23 Sertraline [Zoloft] 50 mg PO DAILY 04/18/23 05/21/23 Previous Rx's Medication Instructions Recorded lisinopriL 20 mg PO DAILY 30 Days tab 05/25/20 Hydrocortisone Pr Cream 1 applic RECTAL TID #28 gm 02/13/25 [Proctosol-Hc 2.5%] Hydrocortisone Pr Cream 1 applic RECTAL TID #30 each 02/13/25 [Proctosol-Hc 2.5%] Ketorolac [Toradol] 10 mg PO Q8HR #15 tab 02/13/25 Lidocaine Viscous 2% [Xylocaine 3 ml MUCOUS MEM TID #80 ml 02/13/25 Viscous] Allergies Allergy/AdvReac Type Severity Reaction Status Date / Time No Known Allergies Allergy Verified 02/13/25 12:15 Review of Systems ROS Statement: Those systems with pertinent positive or pertinent negative responses have been documented in the HPI. ROS Other: All systems not noted in ROS Statement are negative. Gastrointestinal: Reports: other (Had some mild diarrhea earlier in the week prior to the hemorrhoid starting). Denies: abdominal pain Genitourinary: Denies: dysuria Skin: Reports: other (large hemorrhoid, early thrombosis, second smaller hemorrhoid with no thrombosis) Past Medical History Past Medical History: Hypertension Additional Past Medical History / Comment(s): Depression, alcoholism History of Any Multi-Drug Resistant Organisms: MRSA Date of last positivie culture/infection: 08/04/2017 MDRO Source:: nose Past Surgical History: Tonsillectomy Past Anesthesia/Blood Transfusion Reactions: No Reported Reaction Past Psychological History: Anxiety, Depression Smoking Status: Current every day smoker Past Alcohol Use History: None Reported, Abuse, Daily, Heavy Past Drug Use History: None Reported - Past Family History Father Family Medical History: CVA/TIA Additional Family Medical History / Comment(s): aneurisym x 2, then a strok 5 years ago Mother Family Medical History: No Reported History Family Additional Family Medical History / Comment(s): Premature CAD in her uncle maternal side General Exam Limitations: no limitations General appearance: alert, in no apparent distress Head exam: Present: atraumatic GI/Abdominal exam: Present: soft, other (large hemorrhoid that is not bleeding or fully thrombosed, smaller hemorrhoid with no thrombosis) Neurological exam: Present: alert, oriented X3 Psychiatric exam: Present: normal affect, normal mood Skin exam: Present: warm, dry Course Vital Signs 02/13/25 12:13 Temperature 98.1 F Pulse Rate 60 Respiratory 15 Rate Blood Pressure 166/103 O2 Sat by Pulse 98 Oximetry - Reevaluation(s) Reevaluation #1: 02/13/25 15:38 There is a large hemorrhoid notable on physical exam with no active bleeding. This is only partially thrombosed therefore we will not open it in the emergency room. Discussed management including pain control, sitz bath, increase fiber and the Proctosol. She is to follow-up with general surgery and her PCP for further management. She may return if it worsens however she I did reiterate that not every provider removes the ice in the emergency room and she may be referred to surgery. She is stable at this time she understands and agrees to this plan. Discussed management with attending physician Dr. Winn today Medical Decision Making - Medical Decision Making Was pt. sent in by a medical professional or institution (, SWETA, ENGINE BUILDUP MECHANIC, urgent care, hospital, or halfway...) When possible be specific @ -[No] Did you speak to anyone other than the patient for history (EMS, parent, family, police, friend...)? What history was obtained from this source @ -Has been at bedside Did you review nursing and triage notes (agree or disagree)? Why? @ -[I reviewed and agree with nursing and triage notes] Were old charts reviewed (outside hosp., previous admission, EMS record, old EKG, old radiological studies, urgent care reports/EKG's, halfway records)? Report findings @ -Yes old charts were reviewed patient's history was reviewed Differential Diagnosis (chest pain, altered mental status, abdominal pain women, abdominal pain men, vaginal bleeding, weakness, fever, dyspnea, syncope, headache, dizziness, GI bleed, back pain, seizure, CVA, palpatations, mental health, musculoskeletal)? @ -Hemorrhoid EKG interpreted by me (3pts min.). @ -[As above] X-rays interpreted by me (1pt min.). @ -[None done] CT interpreted by me (1pt min.). @ -[None done] U/S interpreted by me (1pt. min.). @ -[None done] What testing was considered but not performed or refused? (CT, X-rays, U/S, labs)? Why? @ -[None] What meds were considered but not given or refused? Why? @ -Narcotic pain medication as patient has a history of alcohol abuse and substance abuse Did you discuss the management of the patient with other professionals (professionals i.e. , SWETA, ENGINE BUILDUP MECHANIC, lab, RT, psych nurse, social security assessor, dock coordinator, teacher, disability insurance hearing officer, case consultant)? Give summary @ -Discussed management with attending physician Dr. Winn Was smoking cessation discussed for >3mins.? @ -[No] Was critical care preformed (if so, how long)? @ -[No] Were there social determinants of health that impacted care today? How? (Homelessness, low income, unemployed, alcoholism, drug addiction, transport ation, low edu. Level, literacy, decrease access to med. care, long-term, rehab)? @ -History of substance abuse Was there de-escalation of care discussed even if they declined (Discuss DNR or withdrawal of care, Hospice)? DNR status @ -[No] What co-morbidities impacted this encounter? (DM, HTN, Smoking, COPD, CAD, Cancer, CVA, ARF, Chemo, Hep., AIDS, mental health diagnosis, sleep apnea, morbid obesity)? @ -[None] Was patient admitted / discharged? Hospital course, mention meds given and route, prescriptions, significant lab abnormalities, going to OR and other pertinent info. @ -Patient is stable at this time. She may follow-up with outpatient surgery or PCP for further management. Undiagnosed new problem with uncertain prognosis? @ -[No] Drug Therapy requiring intensive monitoring for toxicity (Heparin, Nitro, Insulin, Cardizem)? @ -[No] Were any procedures done? @ -[No] Diagnosis/symptom? @ -Hemorrhoids Acute, or Chronic, or Acute on Chronic? @ -Acute Uncomplicated (without systemic symptoms) or Complicated (systemic symptoms)? @ -[default] Side effects of treatment? @ -[No] Exacerbation, Progression, or Severe Exacerbation? @ -[No] Poses a threat to life or bodily function? How? (Chest pain, USA, [place], pneumonia, PE, COPD, DKA, ARF, appy, cholecystitis, CVA, Diverticulitis, Homicidal, Suicidal, threat to staff... and all critical care pts) @ -[No] Disposition Clinical Impression: Hemorrhoids Narrative: Continue with sitz bath's and cold compresses. Increase fiber intake or use fiber supplements such as Metamucil. Follow-up with PCP or general surgery for follow-up management. Disposition: HOME SELF-CARE Condition: Good Instructions (If sedation given, give patient instructions): Hemorrhoids (ED), Thrombosed Hemorrhoid (ED), Hemorrhoidectomy (DC) Prescriptions: Hydrocortisone Pr Cream [Proctosol-Hc 2.5%] 1 applic RECTAL TID #28 gm Hydrocortisone Pr Cream [Proctosol-Hc 2.5%] 1 applic RECTAL TID #30 each Ketorolac [Toradol] 10 mg PO Q8HR #15 tab Lidocaine Viscous 2% [Xylocaine Viscous] 3 ml MUCOUS MEM TID #80 ml Is patient prescribed a controlled substance at d/c from ED?: No When asked, does pt state using other controlled substances?: No If prescribed controlled substance>3 days was MAPS reviewed?: No If opioid is for acute pain is fill amount 7 days or less?: No If Rx opioid, was Start Talking consent form obtained?: No Referrals: Gavin Mcdonald MD [Primary Care Provider] - 1-2 days Time of Disposition: 15:41
[2025-02-13] MEDS: LIDOCAINE VISCOUS 2% 15 ML CUP PO ONE (15:02)
[2025-02-13] MEDS: HYDROCORTISONE 2.5% RECTAL CREAM 30 GM TUBE RECTAL STA (15:04)
[2025-02-13] MEDS: KETOROLAC 15 MG/ML 1 ML VIAL IM STA (15:05)
[2025-02-13 15:48] VITALS: BP 148/87; PULSE 64; RESP 17
== END 2025-02-13 15:47 | disposition home or self-care (01) ==
LOC: EC 11:53
DX: K64.9 Unspecified hemorrhoids (principal); F17.200 Nicotine dependence, unspecified, uncomplicated
CPT/HCPCS: 99283; 96372; J1885